=== PATIENT | male | born 1985 | race African-American/Black ===

== ENCOUNTER 2016-09-26 18:15 | Observation (INO) | payer MEDICAID, OTHER ==
[~2016-09-26] VITALS: Ht 177.8 cm; Wt 130.0 kg
[2016-09-26] VITALS (8 sets, daily range): BP systolic 138–221; BP diastolic 67–122; PULSE 90–116; RESP 18–28; TEMP 98.3–98.8; O2SAT 96–99
[2016-09-26] MEDS ORDERED: CLON0.3T PO (18:49)
[2016-09-26] MEDS ORDERED: METO25TA3 PO (18:49)
[2016-09-26] MEDS ORDERED: LOSA25TA PO (18:49)
--- NOTE | 2016-09-26 19:13 | PD ---
HPI Chief Complaint: Chest Pain Time Seen by Provider: 19:04 Travel History International Travel<30 days: No Contact w/Intl Traveler<30days: No Traveled to known affect area: No History of Present Illness HPI 31-year-old male presents to the emergency department by private vehicle in the care of his grandmother for evaluation of one day of retrosternal chest pain that is worsened and precipitated by cough. Pain is nonradiating. Patient rates pain 8/10 in intensity. Patient has nasal and chest congestion and has had a cough productive of yellow sputum. Patient is visiting from out of state and arrived here yesterday. Patient has history of hypertension for which he is prescribed metoprolol, losartan, and clonidine. Patient states he also has anxiety and is prescribed Klonopin. Patient does not describe this pain as pleuritic. Patient's had no lower extremity pain or swelling. Patient has been out of [facility] for 2 days. Patient is unable to identify exacerbating or alleviating factors except for cough increasing or causing his pain. Patient's had no sweats nausea or vomiting. Patient also reportedly has history of an enlarged heart. Patient has not been here before. Patient does not have a local physician. Patient has taken no medications to address his pain. No acetaminophen and/or ibuprofen use. Patient did take one aspirin earlier in the day but not for pain relief. [facility] Past Medical History Narrative Medical Hypertension cardiomyopathy anxiety bilateral knee and shoulder surgery alcohol use tobacco use; nursing notes reviewed Cardiomyopathy: Yes Cardiovascular Problems: Yes Hypertension: Yes ?: Not Past Surgical History Joint Replacement: Yes (BILATERAL KNEES, RIGHT SHOULDER) Social History Alcohol Use: Yes Tobacco Use: Yes Substance Use: No Allergies-Medications (Allergen,Severity, Reaction): Coded Allergies: No Known Allergies (Unverified , 09/26/16) Reported Meds & Prescriptions Reported Meds & Active Scripts Active Reported Losartan (Losartan Potassium) 25 Mg Tab 25 Mg PO DAILY Clonidine (Clonidine HCl) 0.3 Mg Tab 0.3 Mg PO BID Metoprolol Tartrate 25 Mg Tab 25 Mg PO BID Narrative Medication Klonopin; occasional low dose aspirin Review of Systems Except as stated in HPI: all other systems reviewed are Neg General / Constitutional: No: Fever, Chills HENT: Positive: Congestion Cardiovascular: Positive: Chest Pain or Discomfort, Tachycardia, No: Diaphoresis, Syncope, Edema Respiratory: Positive: Cough, Shortness of Breath, Wheezing, No: Hemoptysis, Pleuritic Pain Gastrointestinal: No: Nausea, Vomiting, Abdominal Pain Genitourinary: No: Dysuria, Flank Pain Musculoskeletal: No: Myalgias, Arthralgias, Edema Skin: No Rash Neurologic: No: Weakness Psychiatric: Positive: Anxiety Hematologic/Lymphatic: No: Lymph Node Enlargement Physical Exam Narrative GENERAL: Well-developed well-nourished obese male appears anxious hypertensive and no respiratory distress SKIN: Warm and dry. HEAD: Atraumatic. Normocephalic. EYES: Pupils equal and round. No scleral icterus. No injection or drainage. ENT: No nasal bleeding or discharge. Mucous membranes pink and moist. NECK: Trachea midline. No JVD. CARDIOVASCULAR: Regular rate and rhythm. RESPIRATORY: No accessory muscle use. Clear to auscultation. Breath sounds equal bilaterally. GASTROINTESTINAL: Abdomen soft, non-tender, nondistended. Hepatic and splenic margins not palpable. MUSCULOSKELETAL: Extremities without clubbing, cyanosis, or edema. No obvious deformities. NEUROLOGICAL: Awake and alert. No obvious cranial nerve deficits. Motor grossly within normal limits. Five out of 5 muscle strength in the arms and legs. Normal speech. PSYCHIATRIC: Appropriate mood and affect; insight and judgment normal. Data Data Last Documented VS Vital Signs Date Time Temp Pulse Resp B/P Pulse Ox O2 Delivery O2 Flow Rate FiO2 09/26/16 22:04 98.3 102 18 140/68 96 09/26/16 20:57 Nasal Cannula 2 Orders Electrocardiogram (09/26/16 19:04) B-Type Natriuretic Peptide (09/26/16 19:04) Ckmb (Isoenzyme) Profile (09/26/16 19:04) Complete Blood Count With Diff (09/26/16 19:04) Comprehensive Metabolic Panel (09/26/16 19:04) Magnesium (Mg) (09/26/16 19:04) Prothrombin Time / Inr (Pt) (09/26/16 19:04) Act Partial Throm Time (Ptt) (09/26/16 19:04) Troponin I (09/26/16 19:04) Chest, Single Ap (09/26/16 19:04) Ecg Monitoring (09/26/16 19:04) Bilateral Bp Monitoring (09/26/16 19:04) Iv Access Insert/Monitor (09/26/16 19:04) Oximetry (09/26/16 19:04) Oxygen Administration (09/26/16 19:04) Aspirin Chew (Aspirin Chew) (09/26/16 19:15) Sodium Chloride 0.9% Flush (Ns Flush) (09/26/16 19:15) Nitroglycerin Sl (Nitrostat Sl) (09/26/16 19:15) Sodium Chlor 0.9% 1000 Ml Inj (Ns 1000 M (09/26/16 19:15) CKMB (09/26/16 19:20) CKMB% (09/26/16 19:20) Ketorolac Inj (Toradol Inj) (09/26/16 20:15) Morphine Inj (Morphine Inj) (09/26/16 20:15) Ondansetron Inj (Zofran Inj) (09/26/16 20:15) Urinalysis - C+S If Indicated (09/26/16 20:02) Influenzae A/B Antigen (09/26/16 20:11) Nitroglycerin 2% Oint (Nitroglycerin 2% (09/26/16 20:15) Clonazepam (Klonopin) (09/26/16 20:15) Clonidine (Catapres) (09/26/16 20:45) Ceftriaxone Inj (Rocephin Inj) (09/26/16 20:45) Lactic Acid Sepsis Protocol (09/26/16 20:37) Blood Culture (09/26/16 20:37) Acetaminophen (Tylenol) (09/26/16 20:45) Electrocardiogram (09/26/16 18:32) Azithromycin Inj (Zithromax Inj) (09/26/16 23:30) Ceftriaxone Inj (Rocephin Inj) (09/27/16 23:00) Azithromycin Inj (Zithromax Inj) (09/27/16 23:00) Albuterol-Ipratropium Neb (Duoneb Neb) (09/26/16 23:45) Guaifenesin Er (Mucinex Er) (09/27/16 09:00) Budeson-Formot 160-4.5 Mg Inh (Symbicort (09/27/16 09:00) Place In Observation (09/26/16 ) Vital Signs (Adult) Q4H (09/26/16 23:31) Activity Oob Ad Anila (09/26/16 23:31) Instrumentation Technologist / Telemetry .CONTINUOUS (09/26/16 23:31) Intake + Output MARTIN.QSHIFT (09/26/16 23:31) Diet Regular Basic (09/27/16 Breakfast) Sodium Chlor 0.9% 1000 Ml Inj (Ns 1000 M (09/26/16 23:31) Sodium Chloride 0.9% Flush (Ns Flush) (09/26/16 23:45) Sodium Chloride 0.9% Flush (Ns Flush) (09/27/16 09:00) Ondansetron Inj (Zofran Inj) (09/26/16 23:45) Bisacodyl Supp (Dulcolax Supp) (09/26/16 23:45) Comprehensive Metabolic Panel (09/27/16 06:00) Complete Blood Count With Diff (09/27/16 06:00) Troponin I (09/27/16 00:00) Troponin I (09/27/16 06:00) Scd Bilateral/Knee High MARTIN.BID (09/26/16 23:31) Jake Bilateral/Knee High MARTIN.QSHIFT (09/26/16 23:31) Acetaminophen (Tylenol) (09/26/16 23:45) Acetamin-Hydrocod 325-5 Mg ([place] 5-325 (09/26/16 23:45) Morphine Inj (Morphine Inj) (09/26/16 23:45) Clonidine (Catapres) (09/27/16 09:00) Losartan (Cozaar) (09/27/16 09:00) Metoprolol Tartrate (Lopressor) (09/27/16 09:00) Creatine Kinase (Cpk) (09/27/16 00:00) Creatine Kinase (Cpk) (09/27/16 06:00) Drug Screen, Random Urine (09/26/16 23:37) Admit Order (Ed Use Only) (09/26/16 ) ^ Saline Lock (09/26/16 23:41) Resp Oxygen Aryan C Titrat 1-4 L (09/26/16 ) ^ Notify Dr: Other (09/26/16 23:41) Sodium Chloride 0.9% Flush (Ns Flush) (09/27/16 09:00) Sodium Chloride 0.9% Flush (Ns Flush) (09/26/16 23:45) Labs Laboratory Tests Test 09/26/16 09/26/16 09/26/16 19:20 20:20 20:30 White Blood Count 12.4 TH/MM3 Red Blood Count 4.94 MIL/MM3 Hemoglobin 15.2 GM/DL Hematocrit 44.4 % Mean Corpuscular Volume 90.0 FL Mean Corpuscular Hemoglobin 30.8 PG Mean Corpuscular Hemoglobin 34.2 % Concent Red Cell Distribution Width 13.1 % Platelet Count 120 TH/MM3 Mean Platelet Volume 9.6 FL Neutrophils (%) (Auto) 73.6 % Lymphocytes (%) (Auto) 17.0 % Monocytes (%) (Auto) 7.5 % Eosinophils (%) (Auto) 0.8 % Basophils (%) (Auto) 1.1 % Neutrophils # (Auto) 9.2 TH/MM3 Lymphocytes # (Auto) 2.1 TH/MM3 Monocytes # (Auto) 0.9 TH/MM3 Eosinophils # (Auto) 0.1 TH/MM3 Basophils # (Auto) 0.1 TH/MM3 CBC Comment DIFF FINAL Differential Comment Prothrombin Time 10.0 SEC Prothromb Time International 0.9 RATIO Ratio Activated Partial 28.2 SEC Thromboplast Time Sodium Level 139 MEQ/L Potassium Level 3.6 MEQ/L Chloride Level 103 MEQ/L Carbon Dioxide Level 28.2 MEQ/L Anion Gap 8 MEQ/L Blood Urea Nitrogen 8 MG/DL Creatinine 1.20 MG/DL Estimat Glomerular Filtration 86 ML/MIN Rate Random Glucose 84 MG/DL Calcium Level 8.9 MG/DL Magnesium Level 2.1 MG/DL Total Bilirubin 0.8 MG/DL Aspartate Amino Transf 26 U/L (AST/SGOT) Alanine Aminotransferase 47 U/L (ALT/SGPT) Alkaline Phosphatase 108 U/L Total Creatine Kinase 646 U/L Creatine Kinase MB 3.5 NG/ML Creatine Kinase MB % 0.5 % Troponin I 0.02 NG/ML B-Type Natriuretic Peptide 503 PG/ML Total Protein 7.9 GM/DL Albumin 3.9 GM/DL Urine Color YELLOW Urine Turbidity CLEAR Urine pH 6.5 Urine Specific [place] 1.012 Urine Protein 30 mg/dL Urine Glucose (UA) NEG mg/dL Urine Ketones NEG mg/dL Urine Occult Blood TRACE Urine Nitrite NEG Urine Bilirubin NEG Urine Leukocyte Esterase NEG Urine RBC 0-3 /hpf Urine WBC 0-2 /hpf Urine Squamous Epithelial 0-5 /hpf Cells Urine Bacteria NONE /hpf Microscopic Urinalysis Comment CULT NOT INDICATED Lactic Acid Level 1.1 mmol/L MDM Medical Decision Making Medical Screen Exam Complete: Yes Emergency Medical Condition: Yes Medical Record Reviewed: Yes Interpretation(s) EKG: Sinus tachycardia rate 110, LVH, lateral and anteroseptal ST-T changes consistent with LVH also to consider ischemia, no acute ST elevation or injury pattern change noted; no comparison study CBC & BMP Diagram 09/26/16 19:20 CK: 646, elevated; MB%:0.5% not elevate troponin I: less than 0.02, not elevated BNP: 503, elevated Lactic acid: 1.1, not elevated UA: trace occult blood no RBC's, positive for protein coags: grossly wnl Differential Diagnosis Chest pain, ACS, SC, atypical chest pain, pneumonia, CHF, PE, uncontrolled hypertension Narrative Course 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 Patient now relates that not only does take Klonopin for anxiety disorder She has a seizure disorder and has been out of his medicine for 2 days. Patient also reports he is recently moved to the area and will not be returning to [place] and is out of all of his medications, apparently including his blood pressure medications. @ 8:40 PM T: 101.5 F; lactic acid, blood cultures ordered; patient administered rocephin 1 gm ivpb; Influenza a/b ag specimen collected as well; cxr no lobar infiltrate noted At 10:08 PM patient clinically improved temperature 98.3F; heart rate 102 sinus rhythm; room air O2 saturation 96%; blood pressure 140/68; patient feels clinically much improved; influenza A/B antigen results pending chest pain, uncontrolled htn, mild chf, elevated ck possible mild rhabdomyolysis , early benzodiazepine withdrawal, medication noncompliance, and febrile illness ; patient also meets sirs criteria possible sepsis criteria --due to bronchitis At 11:10 AM patient is clinically markedly improved lab values have been resulted and discussed with patient. Patient identified to have elevated CK and reports at this time did have recent seizure which may explain elevation of CK consistent with tissue breakdown. Patient continues to have pain only with cough at this time. Patient most likely with noncardiac related and inflammatory/infectious related chest pain. AMA: The risks of leaving against medical advice without further evaluation treatment were discussed with the patient. These risks include cardiac dysfunction, cardiac dysrhythmia, possible heart attack, possible stroke or . The patient indicated understanding of these risks and appeared to have the capacity to make this decision. In view of patient being out of Klonopin was seizure disorder patient will be given and prescription for a few tablets to cover him until he can establish with a primary care provider; patient again is encouraged to return immediately to the emergency department for any concerns Sepsis Criteria SIRS Criteria (2 or more): Heart rate over 90, RR > 20 or PaCO2 < 32, WBC > 77950, < 4000 or > 10% bands Physician Communication Physician Communication discussed with Dr Voss --will admit Diagnosis Primary Impression: Chest pain Additional Impressions: Poorly-controlled hypertension Bronchitis H/O tonic-clonic seizures H/O anxiety disorder Admitting Information Admitting Physician Requests: Observation Referrals: Primary Care Physician call for appointment Additional Instructions: AMA Med/Other Pt SpecificInfo: Prescription(s) given Scripts Clonazepam (Klonopin)1 Mg Tab1 Mg PO BID #7 TAB Ref 0 Prov:Lenore Burt MD 09/26/16 Disposition: 07 AGAINST MEDICAL ADVICE Condition: Stable Lenore Burt MD Sep 26, 2016 19:13
[2016-09-26] MEDS ORDERED: SODIUM CHLORIDE 0.9% FLUSH 5 ML FLUSH IVF PRN ×2 (19:15→23:45)
[2016-09-26] MEDS ORDERED: SODIUM CHLOR 0.9% 1000 ML INJ 1,000 ML IV SCH ×2 (19:15→23:31)
[2016-09-26] MEDS ORDERED: ASPIRIN 81 MG CHEW TAB PO ONE (19:15)
--- NOTE | 2016-09-26 19:24 | RADHPO ---
EXAM DATE/TIME: 09/26/2016 19:10 [facility] COMPARISON: No previous studies available for comparison. INDICATIONS : Chest pains. MEDICAL HISTORY : None. SURGICAL HISTORY : None. ENCOUNTER: Initial ACUITY: 3 days PAIN SCORE: 8/10 LOCATION: Bilateral chest FINDINGS: A single view of the chest demonstrates the lungs to be symmetrically aerated without evidence of mas s, infiltrate or effusion. The cardiomediastinal contours are unremarkable. Osseous structures are intact. CONCLUSION: No acute disease. Chacorta Mendieta MD on September 26, 2016 at 19:22 Board Certified Radiologist. This report was verified electronically.
[2016-09-26 19:30] LABS: AUTOMATED NEUTROPHIL # 9.2 TH/MM3 (1.8-7.7); BASOPHIL # 0.1 TH/MM3 (0-0.2); BASOPHIL % 1.1 % (0.0-2.0); EOSINOPHIL # 0.1 TH/MM3 (0-0.4); EOSINOPHIL % 0.8 % (0.0-4.0); HEMATOCRIT 44.4 % (39.0-51.0); HEMO FLAGS DIFF FINAL; LYMPHOCYTE # 2.1 TH/MM3 (1.0-4.8); MEAN CORPUSCULAR HEMOGLOBIN 30.8 PG (27.0-34.0); MEAN CORPUSCULAR HGB CONC 34.2 % (32.0-36.0); MONO % 7.5 % (0.0-8.0); NEUT % 73.6 % (16.0-70.0); PLATELET COUNT 120 TH/MM3 (150-450); RED BLOOD COUNT 4.94 MIL/MM3 (4.50-5.90); RED CELL DISTRIBUTION WIDTH 13.1 % (11.6-17.2); WHITE BLOOD COUNT 12.4 TH/MM3 (4.0-11.0)
[2016-09-26 19:36] LABS: CHLORIDE 103 MEQ/L (98-107); POTASSIUM 3.6 MEQ/L (3.5-5.1); SODIUM (NA) 139 MEQ/L (136-145)
[2016-09-26 19:39] LABS: ANION GAP 8 MEQ/L (5-15); BICARBONATE 28.2 MEQ/L (21.0-32.0)
[2016-09-26 19:40] LABS: BLOOD UREA NITROGEN 8 MG/DL (7-18); MAGNESIUM 2.1 MG/DL (1.5-2.5)
[2016-09-26 19:41] LABS: APTT (PATIENT) 28.2 SEC (24.3-30.1); INTERNATIONAL NORMALIZED RATIO 0.9 RATIO
[2016-09-26] MEDS: NITROGLYCERIN 0.4 MG SL 25 TABS/BTL SL SCH ×3 (19:41→19:57)
[2016-09-26 19:42] LABS: ALT (GPT) 47 U/L (12-78)
[2016-09-26 19:43] LABS: AST (GOT) 26 U/L (15-37); GLOMERULAR FILTRATION RATE 86 ML/MIN (>89)
[2016-09-26 19:44] LABS: TOTAL BILIRUBIN ADULT 0.8 MG/DL (0.2-1.0)
[2016-09-26 19:45] LABS: ALKALINE PHOSPHATASE 108 U/L (45-117); CREATINE KINASE 646 U/L (39-308)
[2016-09-26 20:00] LABS: CKMB 3.5 NG/ML (0.5-3.6)
[2016-09-26] MEDS ORDERED: KETOROLAC TROMETHAMINE 30 MG/ML (IVP) VIAL IV PUSH ONE (20:15)
[2016-09-26] MEDS ORDERED: clonazePAM 1 MG TAB PO ONE (20:15)
[2016-09-26] MEDS ORDERED: NITROGLYCERIN 2% OINT 1 GM PACKET TOPICAL ONE (20:15)
[2016-09-26] MEDS ORDERED: ONDANSETRON HCL 4 MG/2 ML VIAL IV PUSH ONE (20:15)
[2016-09-26] MEDS ORDERED: MORPHINE SULFATE 4 MG/ML INJ IV PUSH ONE (20:15)
[2016-09-26 20:26] LABS: BLOOD, URINE TRACE (NEG); GLUCOSE,URINE NEG (NEG); KETONE, URINE NEG (NEG); NITRITE,URINE NEG (NEG); PH, URINE 6.5 (5.0-8.5)
[2016-09-26 20:30] LABS: COMMENT (UR) CULT NOT INDICATED; CULTURE IF INDICATED CULT NOT INDICATED; RBC, URINE 0-3 /hpf (0-3); SQUAMOUS EPITHELIAL CELL URINE 0-5 /hpf (0-5); URINE COLOR YELLOW (YELLW/STRAW); WBC, URINE 0-2 /hpf (0-5)
[2016-09-26] MEDS ORDERED: cloNIDine HCL 0.1 MG TAB PO ONE (20:45)
[2016-09-26] MEDS ORDERED: cefTRIAXone INJ 1,000 MG in SODIUM CHLORIDE 0.9% INJ 100 ML IV ONE (20:45)
[2016-09-26] MEDS ORDERED: ACETAMINOPHEN 500 MG CPLT PO ONE (20:45)
--- NOTE | 2016-09-26 22:30 | EKG ---
Date Performed: 09/26/2016 Time Performed: 19:22:12 PTAGE: 31 years EKG: Sinus tachycardia Leftward axis LVH with secondary repolarization abnormality Ant/septal an d lateral ST-T changes may be due to hypertrophy and/or ischemia Abnormal ECG PREVIOUS TRACING : 09/26/2016 18.32 No significant change from previous tracing noted. DOCTOR: Maikel Wilhelm Interpretating Date/Time 09/26/2016 22:30:10
--- NOTE | 2016-09-26 22:32 | EKG ---
Date Performed: 09/26/2016 Time Performed: 18:32:24 PTAGE: 31 years EKG: Sinus tachycardia Possible left anterior fascicular block LVH with secondary repolarization abnormality Ant/septal and lateral ST-T changes may be due to hypertrophy and/or ischemia Abnormal E CG NO PREVIOUS TRACING DOCTOR: Maikel Wilhelm Interpretating Date/Time 09/26/2016 22:31:00
[2016-09-26] MEDS ORDERED: AZITHROMYCIN INJ 500 MG in SODIUM CHLOR 0.9% 250 ML INJ 250 ML IV ONE (23:30)
[2016-09-26] MEDS ORDERED: MORPHINE SULFATE 4 MG/ML INJ IV PRN (23:45)
[2016-09-26] MEDS ORDERED: SODIUM CHLORIDE 0.9% FLUSH 5 ML FLUSH FLUSH PRN (23:45)
[2016-09-26] MEDS ORDERED: ACETAMINOPHEN 325 MG TAB PO PRN (23:45)
[2016-09-26] MEDS ORDERED: BISACODYL 10 MG SUPP PR PRN (23:45)
[2016-09-26] MEDS ORDERED: ACETAMINOPHEN/HYDROcodone 325 MG/5 MG TAB PO PRN (23:45)
[2016-09-26] MEDS ORDERED: RESP: ALBUTEROL 2.5 MG/IPRATROPIUM 0.5 MG NEB (PRN) NEB (23:45)
[2016-09-26] MEDS ORDERED: ONDANSETRON HCL 4 MG/2 ML VIAL IVP PRN (23:45)
[2016-09-26] MEDS ORDERED: CLON1 PO (23:56)
[2016-09-27 00:02] LABS: AMPHETAMINE, URINE NEG (NEG); BARBITURATES, URINE NEG (NEG); COCAINE, URINE NEG (NEG)
[2016-09-27 00:04] VITALS: BP 137/71; TEMP 98
[2016-09-27] MEDS ORDERED: guaiFENesin E.R. 600 MG TAB PO SCH (09:00)
[2016-09-27] MEDS ORDERED: LOSARTAN 25 MG TAB PO SCH (09:00)
[2016-09-27] MEDS ORDERED: cloNIDine HCL 0.3 MG TAB PO SCH (09:00)
[2016-09-27] MEDS ORDERED: SODIUM CHLORIDE 0.9% FLUSH 5 ML FLUSH IVF SCH (09:00)
[2016-09-27] MEDS ORDERED: METOPROLOL TARTRATE 25 MG TAB PO SCH (09:00)
[2016-09-27] MEDS ORDERED: BUDESONIDE-FORMOTEROL 160/4.5 MCG INHALER INH SCH (09:00)
[2016-09-27] MEDS ORDERED: SODIUM CHLORIDE 0.9% FLUSH 5 ML FLUSH FLUSH SCH (09:00)
[2016-09-27] MEDS ORDERED: AZITHROMYCIN INJ 500 MG in SODIUM CHLOR 0.9% 250 ML INJ 250 ML IV SCH (23:00)
[2016-09-27] MEDS ORDERED: cefTRIAXone INJ 1,000 MG in SODIUM CHLORIDE 0.9% INJ 100 ML IV SCH (23:00)
== END 2016-09-27 00:30 | disposition left against medical advice (07) ==
LOC: PHED 18:15 → UNDOADMOB 23:47 → PHEDA 23:47 → UNDODISOB 09-27 00:30
PROVIDERS: ADMIT Hospitalist; ATTEND Hospitalist
DX: R07.89 Other chest pain (principal); I10 Essential (primary) hypertension; J40 Bronchitis, not specified as acute or chronic; F41.9 Anxiety disorder, unspecified; R94.31 Abnormal electrocardiogram [ECG] [EKG]; G40.909 Epilepsy, unspecified, not intractable, without status epilepticus; Z72.0 Tobacco use
CPT/HCPCS: 71010; 80053; 80307; 81001; 82550; 82552; 83605; 83735; 83880; 84484; 85025; 85610; 85730; 87040; 87804; 93005; 96374; 96375; 99285; G0378; J0696; J1885; J2270; J2405; J7030

== ENCOUNTER 2016-10-05 18:58 | Inpatient (IN) | payer MEDICAID ==
[~2016-10-05] VITALS: Ht 177.8 cm; Wt 119.0 kg
[~2016-10-05 18:58] MED LIST: CLON0.3T PO; CLON1 PO; LOSA25TA PO; METO25TA3 PO
[2016-10-05 19:01] VITALS: BP 166/85; PULSE 94; RESP 16; TEMP 98.5; O2SAT 98
[2016-10-05] MEDS ORDERED: SODIUM CHLOR 0.9% 1000 ML INJ 1,000 ML IV ONE (19:08)
--- NOTE | 2016-10-05 19:10 | PD ---
HPI Chief Complaint: Seizure Time Seen by Provider: 19:10 Travel History International Travel<30 days: No Contact w/Intl Traveler<30days: No Traveled to known affect area: No History of Present Illness HPI 31-year-old male with history of hypertension, anxiety, seizure disorder is brought to the emergency department by EMS for evaluation of seizures. Per EMS report the patient was at home with family when he had what they described as a grand mal seizure lasting approximately 60 seconds. States that when they began to transport the patient he experienced 2 more seizures and received a total of Ativan 4 mg IV with resolution. He was noted to be postictal and incontinent of urine, no evidence of tongue biting. Patient is complaining of headache and dizziness. States that he did fall this afternoon after tripping on his bag in his bedroom. States that he hit the back of his head, unsure of loss of consciousness. States he does have a history of seizure disorder but is not taking anything for his seizures at this time. States that he thinks he is supposed to be on Dilantin but missed his appointment with his PCP and has been off of it for at least a week. He also takes Klonopin for anxiety and has been off of this for 5 days because he missed his appointment. He is here visiting from [place] but states he is trying to move back to the area. He denies any chest pain, shortness of breath, numbness or tingling, weakness, vision loss, fever, chills. Denies alcohol or drug use. No other complaints. PFSH Past Medical History Cardiomyopathy: Yes Cardiovascular Problems: Yes Hypertension: Yes Seizures: Yes Past Surgical History Joint Replacement: Yes (BILATERAL KNEES, RIGHT SHOULDER) Social History Alcohol Use: Yes Tobacco Use: Yes (2 cigs/day) Substance Use: No Allergies-Medications (Allergen,Severity, Reaction): Coded Allergies: No Known Allergies (Unverified , 09/26/16) Reported Meds & Prescriptions Reported Meds & Active Scripts Active Reported Dilantin (Phenytoin Extended) 100 Mg Cap Unknown Dose PO Amlodipine (Amlodipine Besylate) 10 Mg Tab 10 Mg PO DAILY Klonopin (Clonazepam) 2 Mg Tab 2 Mg PO BID Losartan (Losartan Potassium) 25 Mg Tab 25 Mg PO DAILY Clonidine (Clonidine HCl) 0.3 Mg Tab 0.3 Mg PO BID Metoprolol Tartrate 25 Mg Tab 25 Mg PO BID Review of Systems Except as stated in HPI: all other systems reviewed are Neg Physical Exam Narrative GENERAL: Well-nourished and well-developed male patient in no acute distress. SKIN: Warm and dry. HEAD: Normocephalic and atraumatic. EYES: No injection, drainage, or hyphema noted. PERRLA. EOMI. ENT: No nasal drainage noted. Oropharynx is clear. NECK: Supple and the trachea is midline. CARDIOVASCULAR: Regular rate and rhythm. RESPIRATORY: Breath sounds are equal bilaterally with no accessory muscle use, wheezing, rhonchi, or crackles. GASTROINTESTINAL: Abdomen is soft, non-tender, and nondistended. MUSCULOSKELETAL: No obvious deformities, swelling, cyanosis, or ecchymosis is present throughout the upper and lower extremities. Patient has full range of motion without any signs of neurovascular compromise. Strength 5/5 upper and lower extremities equal bilaterally. NEUROLOGICAL: Awake, alert, and oriented. Normal speech and gait. Cranial nerves are grossly intact. Data Data Last Documented VS Vital Signs Date Time Temp Pulse Resp B/P Pulse Ox O2 Delivery O2 Flow Rate FiO2 10/05/16 19:01 98.5 94 16 166/85 98 10/05/16 19:01 Room Air Orders Complete Blood Count With Diff (10/05/16 19:08) Alcohol (Ethanol) (10/05/16 19:08) Phenytoin (Dilantin) (10/05/16 19:08) Drug Screen, Random Urine (10/05/16 19:08) Electrocardiogram (10/05/16 ) Ct Brain W/O Iv Contrast(Rout) (10/05/16 ) Blood Glucose (10/05/16 19:08) Ecg Monitoring (10/05/16 19:08) Iv Access Insert/Monitor (10/05/16 19:08) Oximetry (10/05/16 19:08) Comprehensive Metabolic Panel (10/05/16 19:08) Sodium Chlor 0.9% 1000 Ml Inj (Ns 1000 M (10/05/16 19:08) Sodium Chloride 0.9% Flush (Ns Flush) (10/05/16 19:15) Admit Order (Ed Use Only) (10/05/16 22:08) Labs Laboratory Tests Test 10/05/16 10/05/16 10/05/16 19:10 19:15 22:04 White Blood Count 10.9 TH/MM3 Red Blood Count 4.86 MIL/MM3 Hemoglobin 15.2 GM/DL Hematocrit 43.1 % Mean Corpuscular Volume 88.8 FL Mean Corpuscular Hemoglobin 31.2 PG Mean Corpuscular Hemoglobin 35.2 % Concent Red Cell Distribution Width 13.7 % Platelet Count 232 TH/MM3 Mean Platelet Volume 9.7 FL Neutrophils (%) (Auto) 69.9 % Lymphocytes (%) (Auto) 22.7 % Monocytes (%) (Auto) 6.1 % Eosinophils (%) (Auto) 0.3 % Basophils (%) (Auto) 1.0 % Neutrophils # (Auto) 7.6 TH/MM3 Lymphocytes # (Auto) 2.5 TH/MM3 Monocytes # (Auto) 0.7 TH/MM3 Eosinophils # (Auto) 0.0 TH/MM3 Basophils # (Auto) 0.1 TH/MM3 CBC Comment DIFF FINAL Differential Comment Urine Opiates Screen NEG Urine Barbiturates Screen POS Urine Amphetamines Screen NEG Urine Benzodiazepines Screen POS Urine Cocaine Screen NEG Urine Cannabinoids Screen POS Sodium Level 140 MEQ/L Potassium Level 3.4 MEQ/L Chloride Level 106 MEQ/L Carbon Dioxide Level 23.2 MEQ/L Anion Gap 11 MEQ/L Blood Urea Nitrogen 8 MG/DL Creatinine 1.52 MG/DL Estimat Glomerular Filtration 65 ML/MIN Rate Random Glucose 81 MG/DL Calcium Level 8.4 MG/DL Total Bilirubin 0.5 MG/DL Aspartate Amino Transf 15 U/L (AST/SGOT) Alanine Aminotransferase 30 U/L (ALT/SGPT) Alkaline Phosphatase 73 U/L Total Protein 7.2 GM/DL Albumin 3.7 GM/DL Phenytoin (Dilantin) Level LESS THAN 0.4 MCG/ML Ethyl Alcohol Level LESS THAN 3 MG/DL [facility] Medical Decision Making Medical Screen Exam Complete: Yes Emergency Medical Condition: Yes Differential Diagnosis Seizure disorder versus medication noncompliance versus benzodiazepine withdrawal versus intracranial hemorrhage Narrative Course 31-year-old male is brought to the emergency department by EMS for evaluation of 3 seizures today. Patient is afebrile, vital signs are stable. Physical examination reveals that the patient is postictal but is awake and oriented. No focal neurologic deficits. IV access was obtained, labs were drawn and sent. EKG shows sinus rhythm with elevations or depressions. Head CT been ordered and is pending. Head CT is negative for any acute abnormalities. CBC is unremarkable. Urine tox is positive for barbiturates, benzos, cannabinoids. CMP shows mild renal insufficiency with a creatinine of 1.52, GFR 65. This consistent with previous lab values. Patient has been given IV fluids. Dilantin level is less than 0.4 Patient is given a loading dose of fosphenytoin. Patient has remained stable and without complaint while here in the emergency department. Because the patient had 3 seizures today he will be kept in observation. I discussed the case with my attending physician Dr. Mabry who is aware of the patients history, physical examination findings, and treatment plan. Diagnosis Primary Impression: Seizure disorder, status epilepticus, convulsive Admitting Information Admitting Physician Requests: Observation Marcela Villeda Oct 05, 2016 19:10
[2016-10-05] MEDS ORDERED: SODIUM CHLORIDE 0.9% FLUSH 5 ML FLUSH IVF PRN (19:15)
[2016-10-05 19:39] LABS: AUTOMATED NEUTROPHIL # 7.6 TH/MM3 (1.8-7.7); BASOPHIL # 0.1 TH/MM3 (0-0.2); EOSINOPHIL % 0.3 % (0.0-4.0); HEMATOCRIT 43.1 % (39.0-51.0); HEMO FLAGS DIFF FINAL; LYMPH % 22.7 % (9.0-44.0); LYMPHOCYTE # 2.5 TH/MM3 (1.0-4.8); MEAN CELL VOLUME 88.8 FL (80.0-100.0); MEAN CORPUSCULAR HEMOGLOBIN 31.2 PG (27.0-34.0); MEAN CORPUSCULAR HGB CONC 35.2 % (32.0-36.0); MONO % 6.1 % (0.0-8.0); NEUT % 69.9 % (16.0-70.0); PLATELET COUNT 232 TH/MM3 (150-450); RED BLOOD COUNT 4.86 MIL/MM3 (4.50-5.90); RED CELL DISTRIBUTION WIDTH 13.7 % (11.6-17.2); WHITE BLOOD COUNT 10.9 TH/MM3 (4.0-11.0)
[2016-10-05 19:48] LABS: AMPHETAMINE, URINE NEG (NEG); BARBITURATES, URINE POS (NEG); COCAINE, URINE NEG (NEG)
--- NOTE | 2016-10-05 19:48 | RADRPT ---
EXAM DATE/TIME: 10/05/2016 19:25 [facility] COMPARISON: No previous studies available for comparison. INDICATIONS : Seizures. RADIATION DOSE: 47.49 CTDIvol (mGy) MEDICAL HISTORY : Cardiovascular disease. Hypertension. Seizures. SURGICAL HISTORY : None. ENCOUNTER: Initial ACUITY: 1 day PAIN SCALE: 5/10 LOCATION: cranial TECHNIQUE: Multiple contiguous axial images were obtained of the head. Using automated exposure control and adj ustment of the mA and/or kV according to patient size, radiation dose was kept as low as reasonably a chievable to obtain optimal diagnostic quality images. FINDINGS: CEREBRUM: The ventricles are normal for age. No evidence of midline shift, mass lesion, hemorrhage or acute in farction. No extra-axial fluid collections are seen. POSTERIOR FOSSA: The cerebellum and brainstem are intact. The 4th ventricle is midline. The cerebellopontine angle i s unremarkable. EXTRACRANIAL: The visualized portion of the orbits is intact. SKULL: The calvaria is intact. No evidence of skull fracture. CONCLUSION: Negative noncontrast head CT. Rebel Dawn MD on October 05, 2016 at 19:46 Board Certified Radiologist. This report was verified electronically.
[2016-10-05] MEDS ORDERED: KLON2TAB PO (20:06)
[2016-10-05] MEDS ORDERED: AMLO10TA2 PO (20:08)
[2016-10-05] MEDS ORDERED: DILA100C PO (20:10)
[2016-10-05 21:30] VITALS: BP 136/77; PULSE 66; RESP 16; O2SAT 99
[2016-10-05 22:40] LABS: ANION GAP 11 MEQ/L (5-15)
[2016-10-05 22:43] LABS: ALKALINE PHOSPHATASE 73 U/L (45-117); ALT (GPT) 30 U/L (12-78); AST (GOT) 15 U/L (15-37); BICARBONATE 23.2 MEQ/L (21.0-32.0); BLOOD UREA NITROGEN 8 MG/DL (7-18); CHLORIDE 106 MEQ/L (98-107); GLOMERULAR FILTRATION RATE 65 ML/MIN (>89); POTASSIUM 3.4 MEQ/L (3.5-5.1); SODIUM (NA) 140 MEQ/L (136-145); TOTAL BILIRUBIN ADULT 0.5 MG/DL (0.2-1.0)
[2016-10-05] MEDS ORDERED: SODIUM CHLOR 0.9% 1000 ML INJ 1,000 ML IV SCH (23:25)
[2016-10-05 23:30] VITALS: BP 134/68; PULSE 77; RESP 16; O2SAT 99
[2016-10-05] MEDS ORDERED: FOSPHENYTOIN INJ 1,000 MGPE in SODIUM CHLORIDE 0.9% INJ 50 ML IV ONE (23:30)
[2016-10-05] MEDS ORDERED: NALOXONE HCL 0.4 MG/ML AMP IV PRN (23:30)
[2016-10-05] MEDS ORDERED: SODIUM CHLORIDE 0.9% FLUSH 5 ML FLUSH FLUSH PRN (23:30)
--- NOTE | 2016-10-05 23:45 | PD ---
Physical Exam Date Seen by Provider: Oct 05, 2016 Time Seen by Provider: 22:00 Narrative I, Dr. Mabry, have reviewed the advance practice practitioner's documentation and am in agreement, met with the patient face to face, made the diagnosis, and the medical decision making was done by me. *My assessment and Findings: Patient seen and evaluated with PA, please see PA note for further details. Here with multiple seizures today, was initially postictal in the ER, but was awakened and conversant after time period of observation. Patient is noncompliant with his Dilantin dose. He also has not taken his Klonopin and about 5 days. Laboratory Tests Test 10/05/16 10/05/16 19:15 22:04 Urine Barbiturates Screen POS (NEG) Urine Benzodiazepines Screen POS (NEG) Urine Cannabinoids Screen POS (NEG) Potassium Level 3.4 MEQ/L (3.5-5.1) Creatinine 1.52 MG/DL (0.60-1.30) Estimat Glomerular Filtration 65 ML/MIN (>89) Rate Calcium Level 8.4 MG/DL (8.5-10.1) Phenytoin (Dilantin) Level LESS THAN 0.4 MCG/ML (10.0-20.0) Last [address] 10/05/16 0000 Signed Impressions: Service Date/Time: Wednesday, October 05, 2016 19:25 - CONCLUSION: Negative noncontrast head CT. Rebel Dawn MD Patient had been given 4 mg of Ativan by EMS on scene. At this point, Dilantin is low and Dilantin was also reloaded. Case is discussed with Dr. Bean for admission for further treatment. She would like the [facility]. Data Data Last Documented VS Vital Signs Date Time Temp Pulse Resp B/P Pulse Ox O2 Delivery O2 Flow Rate FiO2 10/05/16 19:01 98.5 94 16 166/85 98 10/05/16 19:01 Room Air Orders Complete Blood Count With Diff (10/05/16 19:08) Alcohol (Ethanol) (10/05/16 19:08) Phenytoin (Dilantin) (10/05/16 19:08) Drug Screen, Random Urine (10/05/16 19:08) Electrocardiogram (3/6/17 ) Ct Brain W/O Iv Contrast(Rout) (10/05/16 ) Blood Glucose (10/05/16 19:08) Ecg Monitoring (10/05/16 19:08) Iv Access Insert/Monitor (10/05/16 19:08) Oximetry (10/05/16 19:08) Comprehensive Metabolic Panel (10/05/16 19:08) Sodium Chlor 0.9% 1000 Ml Inj (Ns 1000 M (10/05/16 19:08) Sodium Chloride 0.9% Flush (Ns Flush) (10/05/16 19:15) Admit Order (Ed Use Only) (10/05/16 22:08) Labs Laboratory Tests Test 10/05/16 10/05/16 10/05/16 19:10 19:15 22:04 White Blood Count 10.9 TH/MM3 Red Blood Count 4.86 MIL/MM3 Hemoglobin 15.2 GM/DL Hematocrit 43.1 % Mean Corpuscular Volume 88.8 FL Mean Corpuscular Hemoglobin 31.2 PG Mean Corpuscular Hemoglobin 35.2 % Concent Red Cell Distribution Width 13.7 % Platelet Count 232 TH/MM3 Mean Platelet Volume 9.7 FL Neutrophils (%) (Auto) 69.9 % Lymphocytes (%) (Auto) 22.7 % Monocytes (%) (Auto) 6.1 % Eosinophils (%) (Auto) 0.3 % Basophils (%) (Auto) 1.0 % Neutrophils # (Auto) 7.6 TH/MM3 Lymphocytes # (Auto) 2.5 TH/MM3 Monocytes # (Auto) 0.7 TH/MM3 Eosinophils # (Auto) 0.0 TH/MM3 Basophils # (Auto) 0.1 TH/MM3 CBC Comment DIFF FINAL Differential Comment Urine Opiates Screen NEG Urine Barbiturates Screen POS Urine Amphetamines Screen NEG Urine Benzodiazepines Screen POS Urine Cocaine Screen NEG Urine Cannabinoids Screen POS Sodium Level 140 MEQ/L Potassium Level 3.4 MEQ/L Chloride Level 106 MEQ/L Carbon Dioxide Level 23.2 MEQ/L Anion Gap 11 MEQ/L Blood Urea Nitrogen 8 MG/DL Creatinine 1.52 MG/DL Estimat Glomerular Filtration 65 ML/MIN Rate Random Glucose 81 MG/DL Calcium Level 8.4 MG/DL Total Bilirubin 0.5 MG/DL Aspartate Amino Transf 15 U/L (AST/SGOT) Alanine Aminotransferase 30 U/L (ALT/SGPT) Alkaline Phosphatase 73 U/L Total Protein 7.2 GM/DL Albumin 3.7 GM/DL Phenytoin (Dilantin) Level LESS THAN 0.4 MCG/ML Ethyl Alcohol Level LESS THAN 3 MG/DL MDM Medical Record Reviewed: Yes Supervised Visit with RED: Yes Diagnosis Primary Impression: Seizure disorder, status epilepticus, convulsive Admitting Information Admitting Physician Requests: it Kana Mabry MD Oct 05, 2016 23:44
[2016-10-06] VITALS (21 sets, daily range): BP systolic 136–179; BP diastolic 84–104; PULSE 57–130; RESP 16–24; TEMP 97.9–99.3; O2SAT 96–100
--- NOTE | 2016-10-06 04:43 | HHI.HP ---
[facility] No Primary Care Physician Admission Diagnosis multiple seizures Diagnoses: (1) Seizure disorder, status epilepticus, convulsive (2) H/O tonic-clonic seizures (3) H/O anxiety disorder (4) Poorly-controlled hypertension (5) Acute renal insufficiency (6) Toothache Chief Complaint: Seizures Travel History International Travel<30 Days: No Contact w/Intl Traveler <30 Da: No Traveled to Known Affected Are: No History of Present Illness Mr. Santiago is a 31 year old male who is visiting his sister in the [place] area is from [place]. His past medical history of seizures, cardiomyopathy, and hypertension then presented to the emergency room on 10/05/2016 after experiencing a seizure that was witnessed by his grandmother followed by 2 more in front of EMS. The patient is seen in the emergency department. He is laying down on a stretcher with his sister at the bedside. He states that he was at home lying down when he got up, tripped on the bed, hit his head, and had a seizure. He states he felt the "aura" and could feel a sense of "blackness" come over him. He says he went into the garage and sat down. He is unable to provide a really great history of this which is likely secondary to postictal state. His sister provides a rest of the history. She states that her grandmother was over visiting with them. She said he was walking in the hallway and was covered in sweat so the grandmother had him lie down on the kitchen floor. It was then that he had a grand mal seizure. After it was over, he got up, ripped his shirt off, and started smoking a cigarette. Upon the arrival of EMS, the patient had 2 more witnessed seizures. The sister does not think that he fell and hit his head. Reports that he takes klonopin at home but ran out and has been unable to obtain. His prescribing physician in [place] said he could not call it into a [place] pharmacy. He is not on seizure medications at home. He states he is supposed to take Dilantin. He says he started having seizures in the past couple of years. He denies fevers, chills, and night sweats, but complains of toothache. He had a dentist appointment at [id number] here in [facility] today to take care of this. He denies any history of diabetes, breathing problems, liver or kidney problems , thyroid problems, cancer, or blood clots such as DVT, PE, or CVA. . Review of Systems Except as stated in HPI: all other systems reviewed are Neg Past Family Social History Past Medical History Hypertension Cardiomyopathy Seizures . Past Surgical History Knee surgery . Reported Medications Reported Meds & Active Scripts Active Reported Dilantin (Phenytoin Extended) 100 Mg Cap Unknown Dose PO Amlodipine (Amlodipine Besylate) 10 Mg Tab 10 Mg PO DAILY Klonopin (Clonazepam) 2 Mg Tab 2 Mg PO BID Losartan (Losartan Potassium) 25 Mg Tab 25 Mg PO DAILY Clonidine (Clonidine HCl) 0.3 Mg Tab 0.3 Mg PO BID Metoprolol Tartrate 25 Mg Tab 25 Mg PO BID Allergies: Coded Allergies: No Known Allergies (Unverified , 09/26/16) Active Ordered Medications Current Medications Sodium Chloride (NS 1000 ml Inj) 1,000 ml @ 1,000 mls/hr Q1H ONCE IV Last administered on 10/05/16 19:22; Start 10/05/16 at 19:08; Stop 10/05/16 at 20:07; Status DC IV Flush 2 ml 2 ml UNSCH PRN IVF FLUSH AFTER USING IV ACCESS Last administered on 10/05/16 19:22; Start 10/05/16 at 19:15; Stop 10/05/16 at 23:28; Status DC Fosphenytoin Sodium 1000 mgpe/ Sodium Chloride 70 ml @ 300 mls/hr ONCE ONCE IV Last administered on 10/05/16 23:44; Start 10/05/16 at 23:30; Stop 10/05/16 at 23:43; Status DC Sodium Chloride (NS 1000 ml Inj) 1,000 ml @ 100 mls/hr Q10H IV Last administered on 10/05/16 23:44; Start 10/05/16 at 23:25 IV Flush (NS Flush) 2 ml UNSCH PRN FLUSH FLUSH AFTER USING IV ACCESS; Start 10/05/16 at 23:30 IV Flush (NS Flush) 2 ml BID FLUSH ; Start 10/06/16 at 09:00 Naloxone HCl (Narcan Inj) 0.4 mg UNSCH PRN IV SEE LABEL COMMENTS; Start at 23:30 Lorazepam (Ativan Inj) 1 mg Q15M PRN IV PUSH seizures; Start 10/05/16 at 23:30 . Family History Diabetes on patient's father's side . Social History Smokes 2 cigarettes per day Alcohol: 6 pack per day - last drink day before yesterday - sister at bedside indicates this is daily intake Drugs: denies from [place], visiting sister here . Physical Exam Vital Signs Vital Signs Date Time Temp Pulse Resp B/P Pulse Ox O2 Delivery O2 Flow Rate FiO2 10/06/16 03:30 57 16 136/90 100 Room Air 10/05/16 23:30 77 16 134/68 99 Nasal Cannula 2 10/05/16 21:30 66 16 136/77 99 Nasal Cannula 2 10/05/16 19:01 98.5 94 16 166/85 98 10/05/16 19:01 99 Room Air Physical Exam GENERAL: This is a morbidly obese patient, in no apparent distress. SKIN: No rashes, ecchymoses or lesions. Cool and dry. HEAD: Atraumatic. Normocephalic. EYES: No scleral icterus. No injection or drainage. ENT: Nose without bleeding, purulent drainage. NECK: Trachea midline. No JVD or lymphadenopathy. CARDIOVASCULAR: Regular rate and rhythm without murmurs, gallops, or rubs. RESPIRATORY: Clear to auscultation. Breath sounds equal bilaterally. No wheezes , rales, or rhonchi. GASTROINTESTINAL: Abdomen soft, non-tender, nondistended. No guarding. MUSCULOSKELETAL: Extremities without clubbing, cyanosis, or edema. No calf tenderness. NEUROLOGICAL: Awake and alert. Motor and sensory grossly within normal limits. Normal speech. . Laboratory Laboratory Tests Test 10/05/16 10/05/16 10/05/16 19:10 19:15 22:04 White Blood Count 10.9 Red Blood Count 4.86 Hemoglobin 15.2 Hematocrit 43.1 Mean Corpuscular Volume 88.8 Mean Corpuscular Hemoglobin 31.2 Mean Corpuscular Hemoglobin 35.2 Concent Red Cell Distribution Width 13.7 Platelet Count 232 Mean Platelet Volume 9.7 Neutrophils (%) (Auto) 69.9 Lymphocytes (%) (Auto) 22.7 Monocytes (%) (Auto) 6.1 Eosinophils (%) (Auto) 0.3 Basophils (%) (Auto) 1.0 Neutrophils # (Auto) 7.6 Lymphocytes # (Auto) 2.5 Monocytes # (Auto) 0.7 Eosinophils # (Auto) 0.0 Basophils # (Auto) 0.1 CBC Comment DIFF FINAL Differential Comment Urine Opiates Screen NEG Urine Barbiturates Screen POS Urine Amphetamines Screen NEG Urine Benzodiazepines Screen POS Urine Cocaine Screen NEG Urine Cannabinoids Screen POS Sodium Level 140 Potassium Level 3.4 Chloride Level 106 Carbon Dioxide Level 23.2 Anion Gap 11 Blood Urea Nitrogen 8 Creatinine 1.52 Estimat Glomerular Filtration 65 Rate Random Glucose 81 Calcium Level 8.4 Total Bilirubin 0.5 Aspartate Amino Transf 15 (AST/SGOT) Alanine Aminotransferase 30 (ALT/SGPT) Alkaline Phosphatase 73 Total Protein 7.2 Albumin 3.7 Phenytoin (Dilantin) Level LESS THAN 0.4 Ethyl Alcohol Level LESS THAN 3 Result Diagram: 10/05/16 1910 10/05/16 2204 Imaging Last Impressions Head CT 10/05/16 0000 Signed Impressions: Service Date/Time: Wednesday, October 05, 2016 19:25 - CONCLUSION: Negative noncontrast head CT. Rebel Dawn MD . Assessment and Plan Problem List: (1) Seizure disorder, status epilepticus, convulsive ICD Code: G40.301 Status: Acute (2) H/O tonic-clonic seizures ICD Code: Z86.69 Status: Acute (3) H/O anxiety disorder ICD Code: Z86.59 Status: Acute (4) Poorly-controlled hypertension ICD Code: I10 Status: Acute (5) Acute renal insufficiency ICD Code: N28.9 Status: Acute (6) Toothache ICD Code: K08.89 Status: Acute (7) Substance abuse ICD Code: F19.10 Status: Acute Assessment and Plan Mr. Santiago is a 31 year old male who is visiting his sister in the [place] area is from [place]. His past medical history of seizures, cardiomyopathy, and hypertension then presented to the emergency room on 10/05/2016 after experiencing a seizure that was witnessed by his grandmother followed by 2 more in front of EMS. Seizures- breakthrough seizures vs withdrawal seizures - Seizure precautions - Ativan 1 mg IV every 15 minutes as needed for seizures - Toxicology positive for barbiturates, benzodiazepines, and cannabinoids - Seizure related to alcohol withdrawal? Benzo withdrawal? - Neuro checks every 4 hours Anxiety - Restart home Klonopin Hypertension, poorly controlled - Monitor vital signs every 4 hours - Restart home clonidine, amlodipine, losartan, and metoprolol - Trends in blood pressures and adjust treatment as needed Toothache - Oxycodone 5 mg every 8 hours when necessary by mouth toothache/pain Substance abuse/Daily alcohol use - per patient's sister - denied by patient - Ativan 1 mg IV push every 2 hours as needed for withdrawal symptoms - Advised cessation - Thiamine 100 mg by mouth daily Acute renal insufficiency - BUN 8, creatinine 1.52, estimated GFR 65- slightly worse then they were during visit on 09/26/2016 (seen for chest pain - left AMA) - Received IV NS fluid bolus and about 5 hours of normal saline at 100 cc/h in the ER - fluids were stopped due to history of cardiomyopathy - Recheck BMP and follow trends in renal indices - Avoid nephrotoxins DVT prophylaxis - SCDs (may require outpatient dental surgery - hold anticoagulation for now) Written by Trang Isabel, acting as scribe for Dr. Bean on 10/06/16 at 04:55. All or portions of this note were transcribed by scribe [Trang Isabel]. I, Dr. Rene Bean personally performed the history, physical exam, and medical decision making; and confirmed the accuracy of the information in the transcribed note. Authenticated by Dr. Rene Bean on 10/06/16 at 0455 . Discussed Condition With ER physician, patient's sister, and patient Physician Certification 2 Midnight Certification Type: Admission for Inpatient Services Order for Inpatient Services The services are ordered in accordance with Medicare regulations or non- Medicare payer requirements, as applicable. In the case of services not specified as inpatient-only, they are appropriately provided as inpatient services in accordance with the 2-midnight benchmark. Estimated LOS (days): 3 days is the estimated time the patient will need to remain in the hospital, assuming treatment plan goals are met and no additional complications. Post-Hospital Plan: Not yet determined Trang Isabel Oct 06, 2016 04:43 Rene Bean MD Oct 06, 2016 08:27
[2016-10-06 04:45] LABS: AUTOMATED NEUTROPHIL # 5.9 TH/MM3 (1.8-7.7); BASOPHIL # 0.1 TH/MM3 (0-0.2); BASOPHIL % 0.7 % (0.0-2.0); EOSINOPHIL # 0.1 TH/MM3 (0-0.4); EOSINOPHIL % 1.1 % (0.0-4.0); HEMATOCRIT 42.4 % (39.0-51.0); HEMO FLAGS DIFF FINAL; LYMPH % 27.2 % (9.0-44.0); LYMPHOCYTE # 2.6 TH/MM3 (1.0-4.8); MEAN CELL VOLUME 90.4 FL (80.0-100.0); MEAN CORPUSCULAR HEMOGLOBIN 31.4 PG (27.0-34.0); MEAN CORPUSCULAR HGB CONC 34.8 % (32.0-36.0); MONO % 8.7 % (0.0-8.0); NEUT % 62.3 % (16.0-70.0); PLATELET COUNT 125 TH/MM3 (150-450); RED BLOOD COUNT 4.69 MIL/MM3 (4.50-5.90); RED CELL DISTRIBUTION WIDTH 13.6 % (11.6-17.2); WHITE BLOOD COUNT 9.4 TH/MM3 (4.0-11.0)
[2016-10-06] MEDS ORDERED: THIAMINE HCL 100 MG TAB PO ONE (05:00)
[2016-10-06 05:11] LABS: BICARBONATE 17.1 MEQ/L (21.0-32.0); POTASSIUM 4.7 MEQ/L (3.5-5.1)
[2016-10-06] MEDS: clonazePAM 1 MG TAB PO SCH ×2 (08:03→21:11)
[2016-10-06] MEDS: cloNIDine HCL 0.3 MG TAB PO SCH ×2 (08:04→21:11)
[2016-10-06] MEDS: THIAMINE HCL 100 MG TAB PO SCH (08:04)
[2016-10-06] MEDS ORDERED: LOSARTAN 25 MG TAB PO SCH (09:00)
[2016-10-06] MEDS: SODIUM CHLORIDE 0.9% FLUSH 5 ML FLUSH FLUSH SCH ×2 (09:00→21:23)
[2016-10-06] MEDS ORDERED: METOPROLOL TARTRATE 25 MG TAB PO SCH (09:00)
[2016-10-06] MEDS: LORazepam 2 MG/ML VIAL IV PUSH PRN ×4 (12:10→21:08)
[2016-10-06] MEDS ORDERED: hydrALAZINE HCL 20 MG/ML VIAL IV PUSH PRN (12:45)
[2016-10-06] MEDS ORDERED: ENALAPRILAT 1.25 MG/ML VIAL IV PUSH PRN (12:45)
--- NOTE | 2016-10-06 13:02 | EKG ---
Date Performed: 10/05/2016 Time Performed: 19:09:57 PTAGE: 31 years EKG: Sinus rhythm POSSIBLE RIGHT ATRIAL ENLARGEMENT LEFT AXIS DEVIATION LEFT VENTRICULAR HYPERTROPHY AND ST-T CHANGE A BNORMAL ECG PREVIOUS TRACING : 09/26/2016 19.22 No change from previous tracing noted. DOCTOR: Maikel Wilhelm Interpretating Date/Time 10/06/2016 13:00:28
[2016-10-06] MEDS ORDERED: METOPROLOL TARTRATE 25 MG TAB PO ONE (19:00)
[2016-10-06] MEDS ORDERED: LOSARTAN 25 MG TAB PO ONE (19:00)
[2016-10-06] MEDS ORDERED: hydrALAZINE HCL 20 MG/ML VIAL IV ONE (19:00)
[2016-10-06] MEDS ORDERED: hydrALAZINE HCL 20 MG/ML VIAL IV PRN (19:00)
[2016-10-06] MEDS: METOPROLOL TARTRATE 50 MG TAB PO SCH (21:12)
[2016-10-07] VITALS (14 sets, daily range): BP systolic 128–154; BP diastolic 77–94; PULSE 61–90; RESP 16–18; TEMP 97.9–98.7; O2SAT 99
[2016-10-07] MEDS: LORazepam 2 MG/ML VIAL IV PUSH PRN ×2 (05:19→10:30)
[2016-10-07] MEDS: SODIUM CHLORIDE 0.9% FLUSH 5 ML FLUSH FLUSH SCH (08:19)
[2016-10-07] MEDS: cloNIDine HCL 0.3 MG TAB PO SCH (08:19)
[2016-10-07] MEDS: THIAMINE HCL 100 MG TAB PO SCH (08:19)
[2016-10-07] MEDS: clonazePAM 1 MG TAB PO SCH (08:20)
[2016-10-07] MEDS: METOPROLOL TARTRATE 50 MG TAB PO SCH (08:20)
[2016-10-07] MEDS ORDERED: LOSARTAN 50 MG TAB PO SCH (09:00)
[2016-10-07] MEDS ORDERED: METO-309 PO (10:31)
[2016-10-07] MEDS ORDERED: VITA100T2 PO (10:31)
[2016-10-07] MEDS ORDERED: COZA50TA PO (10:31)
--- NOTE | 2016-10-07 10:34 | HHI.PR ---
Subjective Remarks Patient doing better today No more seizure episodes No chest pain dizziness or lightheadedness or headache I discussed with him extensively, advised to continue on his Dilantin until seeing his neurologist was in [place] Also advised not to drive or swim or operating heavy machinery until then Objective Vitals Vital Signs Date Time Temp Pulse Resp B/P Pulse Ox O2 Delivery O2 Flow Rate FiO2 10/07/16 09:18 16 10/07/16 09:00 90 10/07/16 08:10 98.7 88 16 149/94 99 10/07/16 08:00 86 10/07/16 07:00 67 10/07/16 06:00 70 10/07/16 05:00 78 10/07/16 04:01 61 10/07/16 04:00 98.7 71 18 154/90 99 10/07/16 03:00 66 10/07/16 02:00 70 10/07/16 01:00 68 10/07/16 00:00 70 10/07/16 00:00 97.9 71 18 128/77 99 10/06/16 23:00 82 10/06/16 22:00 78 10/06/16 21:00 70 10/06/16 20:00 101 10/06/16 20:00 99.3 80 20 175/95 98 10/06/16 19:00 106 10/06/16 18:01 96 10/06/16 17:57 102 10/06/16 16:00 112 10/06/16 15:46 97.9 116 22 179/100 99 10/06/16 15:00 130 10/06/16 14:02 108 10/06/16 13:31 100 10/06/16 12:15 98.3 84 18 174/104 100 10/06/16 12:00 72 10/06/16 11:45 98.0 75 24 138/84 96 10/06/16 11:00 77 I/O 10/06/16 10/06/16 10/06/16 10/07/16 10/07/16 10/07/16 07:00 15:00 23:00 07:00 15:00 23:00 Intake Total 1400 ml 480 ml Output Total 175 ml Balance 1400 ml 305 ml Intake Oral 1000 ml 480 ml IV Total 400 ml Output Urine Total 175 ml # Voids 8 # Bowel Movements 1 Result Diagram: 10/06/16 0415 10/06/16 0425 Objective Remarks GENERAL: This is a well-nourished, well-developed patient, in no apparent distress. SKIN: No rashes, warm and dry HEAD: Atraumatic. Normocephalic. EYES: Pupils equal round and reactive. Extraocular motions intact. No scleral icterus. ENT: Nose without bleeding, or drainage, Airway patent. NECK: Trachea midline. Supple CARDIOVASCULAR: Regular rate and rhythm without murmurs, gallops, or rubs. RESPIRATORY: Fair air entry bilaterally. No wheezes, rales, or rhonchi. GASTROINTESTINAL: Abdomen soft, non-tender, nondistended. Positive bowel sounds MUSCULOSKELETAL: Extremities without clubbing, cyanosis, or edema. Pedal pulses appreciated NEUROLOGICAL: Awake and alert. Moves all extremity. Normal speech.no focal neurological deficit A/P Problem List: (1) Seizure disorder, status epilepticus, convulsive ICD Code: G40.301 Status: Acute (2) H/O tonic-clonic seizures ICD Code: Z86.69 Status: Acute (3) H/O anxiety disorder ICD Code: Z86.59 Status: Acute (4) Poorly-controlled hypertension ICD Code: I10 Status: Acute (5) Acute renal insufficiency ICD Code: N28.9 Status: Acute (6) Toothache ICD Code: K08.89 Status: Acute (7) Substance abuse ICD Code: F19.10 Status: Acute Assessment and Plan Mr. Santiago is a 31 year old male who is visiting his sister in the [place] area is from [place]. His past medical history of seizures, cardiomyopathy, and hypertension then presented to the emergency room on 10/05/2016 after experiencing a seizure that was witnessed by his grandmother followed by 2 more in front of EMS. Acute seizure episode- possibly breakthrough seizure disorder vs withdrawal seizures - Seizure precautions -Verified Dilantin dose with the patient pharmacy is on 100 mg by mouth daily, will resume those - Ativan 1 mg IV every 15 minutes as needed for seizures - Toxicology positive for barbiturates, benzodiazepines, and cannabinoids - Seizure related to alcohol withdrawal? Benzo withdrawal? - Neuro checks every 4 hours Anxiety - Restart home Klonopin Hypertension, poorly controlled>> improved - Monitor vital signs every 4 hours - Restart home clonidine, amlodipine, we will double losartan, and metoprolol - Trends in blood pressures and adjust treatment as needed Toothache - Oxycodone 5 mg every 8 hours when necessary by mouth toothache/pain Substance abuse/Daily alcohol use - per patient's sister - denied by patient - Ativan 1 mg IV push every 2 hours as needed for withdrawal symptoms - Advised cessation - Thiamine 100 mg by mouth daily Acute renal insufficiency - BUN 8, creatinine 1.52, estimated GFR 65- slightly worse then they were during visit on 09/26/2016 (seen for chest pain - left AMA) - Received IV NS fluid bolus and about 5 hours of normal saline at 100 cc/h in the ER - fluids were stopped due to history of cardiomyopathy - Recheck BMP and follow trends in renal indices - Avoid nephrotoxins Discharge Planning Discharge patient to home Condition on discharge: Improved Healthy heart no cell Diet as tolerated Ad Anila activity Rx written: Losartan 50, metoprolol 50, Dilantin 100 mg daily Follow-up with primary care physician and neurology within 1 week in [place] MD Oct 07, 2016 10:34
[2016-10-07] MEDS ORDERED: DILA100C PO (10:54)
[2016-10-07] MEDS ORDERED: CLON2TAB PO (11:12)
== END 2016-10-07 11:27 | disposition home or self-care (01) | DRG 101 ==
LOC: NEPC 18:58 → NEDA 22:10 → OBSVTOIN 22:10 → NEDH 10-06 02:15 → HCIS 10-06 07:31
PROVIDERS: ADMIT Hospitalist; ATTEND Hospitalist
DX: G40.901 Epilepsy, unspecified, not intractable, with status epilepticus (principal); I42.9 Cardiomyopathy, unspecified; I10 Essential (primary) hypertension; F41.9 Anxiety disorder, unspecified; N28.9 Disorder of kidney and ureter, unspecified; K08.89 Other specified disorders of teeth and supporting structures; F17.210 Nicotine dependence, cigarettes, uncomplicated; E66.01 Morbid (severe) obesity due to excess calories; Z68.37 Body mass index [BMI] 37.0-37.9, adult; Z91.14 Patient's other noncompliance with medication regimen; F19.10 Other psychoactive substance abuse, uncomplicated
CPT/HCPCS: 70450; 80048; 80053; 80185; 80307; 85025; 93005; J0360; J2060; J7030; Q2009

== ENCOUNTER 2016-10-17 14:43 | Inpatient (IN) | payer MEDICAID ==
[~2016-10-17] VITALS: Ht 188 cm; Wt 115.0 kg
[2016-10-17] VITALS (10 sets, daily range): BP systolic 101–134; BP diastolic 55–72; PULSE 58–76; RESP 16–20; TEMP 96.4–98.4; O2SAT 95–99
[~2016-10-17 14:43] MED LIST changes: +AMLO10TA2 PO; -CLON1 PO; +CLON2TAB PO; +COZA50TA PO; +DILA100C PO; +KLON2TAB PO; +METO-309 PO; +VITA100T2 PO
[2016-10-17] MEDS ORDERED: LORazepam 2 MG/ML VIAL ONE (15:04)
[2016-10-17] MEDS ORDERED: SODIUM CHLOR 0.9% 1000 ML INJ 1,000 ML IV ONE ×2 (15:04→15:45)
[2016-10-17] MEDS ORDERED: levETIRAcetam INJ 1,000 MG in SODIUM CHLORIDE 0.9% INJ 100 ML IV ONE (15:15)
[2016-10-17] MEDS ORDERED: LORazepam 2 MG/ML VIAL IV PUSH ONE (15:15)
--- NOTE | 2016-10-17 15:20 | RADRPT ---
EXAM DATE/TIME: 10/17/2016 15:02 [facility] COMPARISON: CT BRAIN W/O CONTRAST, October 05, 2016, 19:25. INDICATIONS : Stroke alert. Aphasia and general weakness. History of seizures RADIATION DOSE: 56.35 CTDIvol (mGy) This report was called by Dr. Sanches to Dr. Toro at 1517 hrs. MEDICAL HISTORY : Non-responsive. SURGICAL HISTORY : Non-responsive. ENCOUNTER: Initial ACUITY: 1 day PAIN SCALE: Non-responsive LOCATION: Bilateral head TECHNIQUE: Multiple contiguous axial images were obtained of the head. Using automated exposure control and adj ustment of the mA and/or kV according to patient size, radiation dose was kept as low as reasonably a chievable to obtain optimal diagnostic quality images. FINDINGS: CEREBRUM: The ventricles are normal for age. No evidence of midline shift, mass lesion, hemorrhage or acute in farction. No extra-axial fluid collections are seen. POSTERIOR FOSSA: The cerebellum and brainstem are intact. The 4th ventricle is midline. The cerebellopontine angle i s unremarkable. EXTRACRANIAL: The visualized portion of the orbits is intact. SKULL: The calvaria is intact. No evidence of skull fracture. CONCLUSION: Unremarkable noncontrast head CT. Hunter Sanches MD on October 17, 2016 at 15:16 Board Certified Radiologist. This report was verified electronically.
[2016-10-17 15:22] LABS: AUTOMATED NEUTROPHIL # 8.5 TH/MM3 (1.8-7.7); BASOPHIL # 0.1 TH/MM3 (0-0.2); BASOPHIL % 0.6 % (0.0-2.0); EOSINOPHIL % 0.2 % (0.0-4.0); HEMATOCRIT 46.5 % (39.0-51.0); HEMO FLAGS DIFF FINAL; I-STAT POTASSIUM 3.4 MMOL/L (3.5-4.9); I-STAT SODIUM 143 MMOL/L (138-146); LYMPH % 22.4 % (9.0-44.0); LYMPHOCYTE # 2.8 TH/MM3 (1.0-4.8); MEAN CELL VOLUME 90.9 FL (80.0-100.0); MEAN CORPUSCULAR HEMOGLOBIN 30.6 PG (27.0-34.0); MEAN CORPUSCULAR HGB CONC 33.6 % (32.0-36.0); MONO % 8.2 % (0.0-8.0); NEUT % 68.6 % (16.0-70.0); PLATELET COUNT 224 TH/MM3 (150-450); RED BLOOD COUNT 5.11 MIL/MM3 (4.50-5.90); RED CELL DISTRIBUTION WIDTH 14.1 % (11.6-17.2); WHITE BLOOD COUNT 12.5 TH/MM3 (4.0-11.0)
--- NOTE | 2016-10-17 15:29 | PD ---
HPI Chief Complaint: Stroke Alert Time Seen by Provider: 15:04 Travel History International Travel<30 days: No Contact w/Intl Traveler<30days: No History of Present Illness HPI So 31-year-old man who presents to the emergency department brought in by family for altered mental status. They states symptoms started 5 minutes ago. They report that they noticed that he in the backseat of a car when he was sort of twitching and not to be feeding well. They went to go check on him he could walk, couldn't really answer questions. He thought he may have been having a seizure. His a history of seizures but normally is generalized convulsions when he has seizures. They did not notice any generalized convulsions. A sling the hospital for having multiple seizures back to back. He takes Dilantin. They think he is been taking it. They also say recently he was told he had an enlarged heart. He reports taking all his medicines. On further questioning he reports he really hasn't been acting right past 24 hours or so, more sluggish and not really talking normally. History Past Medical History Narrative Medical Seizures Hypertension Enlarged heart Social History Alcohol Use: Yes Tobacco Use: Yes (2 cigs/day) Allergies-Medications (Allergen,Severity, Reaction): Coded Allergies: No Known Allergies (Unverified , 09/26/16) Reported Meds & Prescriptions Reported Meds & Active Scripts Active Clonazepam 2 Mg Tab 2 Mg PO BID Dilantin (Phenytoin Extended) 100 Mg Cap 100 Mg PO BID Vitamin B-1 (Thiamine HCl) 100 Mg Tab 100 Mg PO DAILY Lopressor (Metoprolol Tartrate) 50 Mg Tab 50 Mg PO BID Cozaar (Losartan Potassium) 50 Mg Tab 50 Mg PO DAILY Reported Lortab (Hydrocodone-Acetaminophen) 7.5-325 Mg Tab 1 Tab PO Q6H PRN Clonidine (Clonidine HCl) 0.2 Mg Tab 0.2 Mg PO BID Amlodipine (Amlodipine Besylate) 10 Mg Tab 10 Mg PO DAILY Review of Systems Except as stated in HPI: all other systems reviewed are Neg Physical Exam Narrative GENERAL: 31-year-old man, appears confused, eyes running about the room. He'll interact some but is clearly altered. SKIN: Warm and dry. HEAD: Atraumatic. Normocephalic. EYES: Pupils equal and round. No scleral icterus. No injection or drainage. ENT: No nasal bleeding or discharge. Mucous membranes pink and moist. NECK: Trachea midline. No JVD. CARDIOVASCULAR: Regular rate and rhythm. No murmur appreciated. RESPIRATORY: Patient appears to be breathing a little bit rapidly. Some coarse wet breathing with upper airway congestion. GASTROINTESTINAL: Abdomen is obese and soft. Is no grimace with palpation. MUSCULOSKELETAL: No obvious deformities. No edema. NEUROLOGICAL: Awake and somewhat decreased alertness. Look about the room but appears confused. He will track keep. He'll answer some questions although the speech is very slow to understand. He'll follow some commands. He moves all 4 extremities. On direct testing his strength seems to be full and equal. He states that he can feel everything on both sides. It looks like he has a little bit of left-sided facial droop flattening of the nasolabial fold. He has trouble with speech articulation and also with word finding. Data Data Last Documented VS Vital Signs Date Time Temp Pulse Resp B/P Pulse Ox O2 Delivery O2 Flow Rate FiO2 10/17/16 16:02 97 Nasal Cannula 2 10/17/16 16:01 58 18 101/57 10/17/16 14:44 98.2 Orders Diet Npo (10/17/16 Dinner) Activity Bed Rest (10/17/16 ) Electrocardiogram (10/17/16 ) I-Stat Creatinine (10/17/16 15:04) I-Stat Profile (10/17/16 15:04) Prothrombin Time / Inr (Pt) (10/17/16 15:04) Act Partial Throm Time (Ptt) (10/17/16 15:04) Complete Blood Count With Diff (10/17/16 15:04) Fibrinogen (10/17/16 15:04) Creatine Kinase (Cpk) (10/17/16 15:04) Troponin I (10/17/16 15:04) Ua Includes Microscopic (10/17/16 15:04) Drug Screen, Random Urine (10/17/16 15:04) Type And Screen (10/17/16 15:04) Ct Brain W/O Iv Contrast(Rout) (10/17/16 ) Consult Neurology (10/17/16 ) Lorazepam Inj (Ativan Inj) (10/17/16 15:04) Blood Glucose (10/17/16 15:04) Ecg Monitoring (10/17/16 15:04) Neuro Checks Q2HX12,Q4H (10/17/16 15:04) Nursing Bedside Swallow Assess .ONCE (10/17/16 15:04) Iv Access Insert/Monitor (10/17/16 15:04) NPO (10/17/16 15:04) Oximetry (10/17/16 15:04) Oxygen Administration (10/17/16 15:04) Sodium Chlor 0.9% 1000 Ml Inj (Ns 1000 M (10/17/16 15:04) Resp Oxygen Aryan C Titrat 1-4 L (10/17/16 15:04) Cath For Specimen (10/17/16 15:04) Lorazepam Inj (Ativan Inj) (10/17/16 15:15) Levetiracetam Inj (Keppra Inj) (10/17/16 15:15) Phenytoin (Dilantin) (10/17/16 15:04) Arterial Blood Gas (Abg) (10/17/16 ) Alcohol (Ethanol) (10/17/16 15:00) Chest, Single Ap (10/17/16 ) Sodium Chlor 0.9% 1000 Ml Inj (Ns 1000 M (10/17/16 15:45) CKMB (10/17/16 15:00) CKMB% (10/17/16 15:00) Fosphenytoin Inj (Cerebyx Inj) (10/17/16 16:15) Labs Laboratory Tests Test 10/17/16 10/17/16 10/17/16 10/17/16 15:00 15:29 15:42 16:09 White Blood Count 12.5 TH/MM3 Red Blood Count 5.11 MIL/MM3 Hemoglobin 15.6 GM/DL Bedside Hemoglobin 17.0 G/DL Hematocrit 46.5 % Bedside Hematocrit 50.0 % Mean Corpuscular Volume 90.9 FL Mean Corpuscular Hemoglobin 30.6 PG Mean Corpuscular Hemoglobin 33.6 % Concent Red Cell Distribution Width 14.1 % Platelet Count 224 TH/MM3 Mean Platelet Volume 9.3 FL Neutrophils (%) (Auto) 68.6 % Lymphocytes (%) (Auto) 22.4 % Monocytes (%) (Auto) 8.2 % Eosinophils (%) (Auto) 0.2 % Basophils (%) (Auto) 0.6 % Neutrophils # (Auto) 8.5 TH/MM3 Lymphocytes # (Auto) 2.8 TH/MM3 Monocytes # (Auto) 1.0 TH/MM3 Eosinophils # (Auto) 0.0 TH/MM3 Basophils # (Auto) 0.1 TH/MM3 CBC Comment DIFF FINAL Differential Comment Prothrombin Time 10.8 SEC Prothromb Time International 1.0 RATIO Ratio Activated Partial 25.5 SEC Thromboplast Time Fibrinogen 308 mg/dL Bedside Sodium 143 MMOL/L Bedside Potassium 3.4 MMOL/L Bedside Chloride 105 MMOL/L Bedside Blood Urea Nitrogen 10 MG/DL Bedside Creatinine 1.0 MG/DL Bedside Glucose 101 MG/DL Total Creatine Kinase 948 U/L Creatine Kinase MB 23.7 NG/ML Creatine Kinase MB % 2.5 % Troponin I 0.02 NG/ML Phenytoin (Dilantin) Level 1.3 MCG/ML Ethyl Alcohol Level LESS THAN 3 MG/DL Blood Type B POSITIVE Antibody Screen NEGATIVE Blood Bank Comment Blood Gas Puncture Site LT RADIAL Blood Gas Patient Temperature 98.6 Blood Gas HCO3 25 mmol/L Blood Gas Base Excess 1.2 mmol/L Blood Gas Oxygen Saturation 96 % Arterial Blood pH 7.44 Arterial Blood Partial 37 mmHg Pressure CO2 Arterial Blood Partial 126 mmHG Pressure O2 Arterial Blood Oxygen Content 21.2 Vol % Arterial Blood 2.0 % Carboxyhemoglobin Arterial Blood Methemoglobin 0.7 % Blood Gas Hemoglobin 15.6 G/DL Oxygen Delivery Device NASAL CANNULA Blood Gas Liter Flow 2 L/M Urine Opiates Screen NEG Urine Barbiturates Screen NEG Urine Amphetamines Screen NEG Urine Benzodiazepines Screen POS Urine Cocaine Screen NEG Urine Cannabinoids Screen POS Urine Color YELLOW Urine Turbidity CLEAR Urine pH 6.5 Urine Specific [place] 1.028 Urine Protein 100 mg/dL Urine Glucose (UA) NEG mg/dL Urine Ketones 40 mg/dL Urine Occult Blood TRACE Urine Nitrite NEG Urine Bilirubin NEG Urine Urobilinogen LESS THAN 2.0 MG/DL Urine Leukocyte Esterase NEG Urine RBC 2 /hpf Urine WBC 1 /hpf Urine Squamous Epithelial 2 /hpf Cells Urine Hyaline Casts 4 /lpf Urine Mucus FEW /lpf Microscopic Urinalysis Comment [facility] Medical Decision Making Medical Screen Exam Complete: Yes Emergency Medical Condition: Yes Interpretation(s) My review of EKG: Sinus rhythm at a rate of 62, leftward axis with LVH with marked lateral ST depressions and T-wave inversions, unchanged from previous. Differential Diagnosis Seizure, postictal paralysis, stroke, bleed, other Narrative Course Medical decision making 31-year-old male presents to the emergency department with bitemporal mental status. Initially said symptoms started 20 minutes ago but then he reports that he really wasn't acting normally yesterday. Some suspicion the patient may still be seizing. He may be having him flex partial seizures or postictal state. Strokes also possible symptoms likely. Initially he was called as a stroke alert, I spoke with Dr Wilks, patient is not a TPA candidate because of the likelihood of seizures as the etiology, and the unclear time of onset. We' ll check CT head, labs, blood gas, reassess. FINAL: Patient still with altered mental status. I spoke with concerns that he may be partial seizures. He was loaded with Keppra and phenytoin, as well as an. He is a little bit sleepy now with the Ativan but still seems clearly altered. Mom states at baseline he is awake and normal mental status. We'll plan on admission for further evaluation. Diagnosis Primary Impression: Altered mental status Additional Impression: Seizures Kee Toro MD Oct 17, 2016 15:29
[2016-10-17 15:35] LABS: APTT (PATIENT) 25.5 SEC (24.3-30.1); PROTHROMBIN TIME - PATIENT 10.8 SEC (9.8-11.6)
[2016-10-17 15:39] LABS: BLOOD GAS BASE EXCESS 1.2 mmol/L (-2-2); BLOOD GAS HCO3 25 mmol/L (22-26); BLOOD GAS METHEMOGLOBIN 0.7 % (0-2); BLOOD GAS O2 HGB SATURATION 96 % (90-100); BLOOD GAS OXYGEN CONTENT 21.2 Vol % (12.0-20.0); BLOOD GAS PCO2 37 mmHg (38-42); BLOOD GAS PO2 126 mmHG (61-120); BLOOD GAS TOTAL HGB 15.6 G/DL (12.0-16.0); TEMP CORR TO 98.6
[2016-10-17 15:40] LABS: CRITICAL VALUE NO; DRAW SITE LT RADIAL; LITER FLOW 2 L/M; NUMBER OF ARTERIAL PUNCTURES 1; OXYGEN DEVICE NASAL CANNULA; STAT YES; ULNAR PULSE PRESENT
[2016-10-17 15:41] LABS: CREATINE KINASE 948 U/L (39-308)
[2016-10-17 16:00] LABS: CKMB 23.7 NG/ML (0.5-3.6)
--- NOTE | 2016-10-17 16:05 | RADRPT ---
EXAM DATE/TIME: 10/17/2016 15:53 [facility] COMPARISON: CHEST SINGLE AP, September 26, 2016, 19:10. INDICATIONS : Shortness of breath. MEDICAL HISTORY : None. SURGICAL HISTORY : None. ENCOUNTER: Initial ACUITY: 1 day PAIN SCORE: Non-responsive. LOCATION: Bilateral chest FINDINGS: A single view of the chest demonstrates the lungs to be symmetrically aerated without evidence of mas s, infiltrate or effusion. The cardiomediastinal contours are unremarkable. Osseous structures are intact. CONCLUSION: No acute disease. Hunter Sanches MD on October 17, 2016 at 16:03 Board Certified Radiologist. This report was verified electronically.
[2016-10-17] MEDS ORDERED: HYDR-3534 PO (16:07)
[2016-10-17] MEDS ORDERED: CLON0.2T PO (16:07)
[2016-10-17 16:15] LABS: BLOOD, URINE TRACE (NEG); GLUCOSE,URINE NEG (NEG); HYALINE CAST, URINE 4 /lpf (RARE); KETONE, URINE 40 mg/dL (NEG); MUCUS URINE FEW /lpf (OCC); NITRITE,URINE NEG (NEG); PH, URINE 6.5 (5.0-8.5); SQUAMOUS EPITHELIAL CELL URINE 2 /hpf (0-5); URINE COLOR YELLOW (YELLW/STRAW)
[2016-10-17] MEDS ORDERED: FOSPHENYTOIN INJ 1,000 MGPE in SODIUM CHLORIDE 0.9% INJ 50 ML IV ONE (16:15)
[2016-10-17 16:23] LABS: AMPHETAMINE, URINE NEG (NEG); BARBITURATES, URINE NEG (NEG); COCAINE, URINE NEG (NEG)
--- NOTE | 2016-10-17 18:03 | EKG ---
Date Performed: 10/17/2016 Time Performed: 15:21:39 PTAGE: 31 years EKG: Sinus rhythm POSSIBLE RIGHT VENTRICULAR CONDUCTION DELAY LEFT VENTRICULAR HYPERTROPHY AND ST-T CHANGE ABNORMAL EC G COMPARED TO PRIOR ELECTROCARDIOGRAM, Rate has slowed and lateral precordial ST T-wave changes are m ore marked. PREVIOUS TRACING : 10/05/2016 19.09 DOCTOR: Zain Cool Interpretating Date/Time 10/17/2016 18:01:49
[2016-10-17] MEDS ORDERED: ONDANSETRON HCL 4 MG/2 ML VIAL IVP PRN (18:15)
[2016-10-17] MEDS ORDERED: SODIUM CHLORIDE 0.9% FLUSH 5 ML FLUSH FLUSH PRN (18:15)
[2016-10-17] MEDS ORDERED: ACETAMINOPHEN 325 MG TAB PO PRN (18:15)
[2016-10-17] MEDS ORDERED: NALOXONE HCL 0.4 MG/ML AMP IV PRN (18:15)
[2016-10-17] MEDS ORDERED: LORazepam 2 MG/ML VIAL IV PUSH PRN ×5 (18:15→18:30)
--- NOTE | 2016-10-17 18:26 | HHI.HP ---
[facility] Service [facility] Primary Care Physician No Primary Care Physician Admission Diagnosis altered mental status, seizures Diagnoses: Chief Complaint: Altered mental status Travel History International Travel<30 Days: No Contact w/Intl Traveler <30 Da: No History of Present Illness The patient is a 31-year-old male with past medical history of seizure disorder who is presenting to the hospital following a seizure. The patient was lethargic secondary to medications he received so history was limited. The patient's family noticed that he has been having difficulty talking and has been acting confused. They also noticed he has been twitching. The patient's family mentions that he appears to have been having seizures while sleeping overnight. The patient was initially called in as a stroke alert and neurology was called and recommended treatment for seizure at this time. The patient was loaded with Keppra and phenytoin. The patient was recently admitted to the hospital for another seizure and was discharged after a couple of days. The patient is now lethargic and able to communicate but he mumbles and closes his eyes frequently. He does seem to indicate left-sided chest pain. He is unable to elaborate further on it but he does point to his chest. He says he does not feel weak anywhere and denies any numbness or tingling sensations. Review of Systems ROS Limitations: Clinical Condition, Altered Mental Status, Poor Historian Except as stated in HPI: all other systems reviewed are Neg Past Family Social History Past Medical History Seizure disorder Hypertension Cardiomyopathy Past Surgical History Knee surgery Allergies: Coded Allergies: No Known Allergies (Unverified , 09/26/16) Active Ordered Medications Current Medications Medications (Trade) Dose Ordered Sig/Chito Route Start Time Stop Time Status Last Admin (NS 1000 ml Inj) 1,000 ml @ 70 mls/hr [id number] ONCE IV 10/17/16 15:04 10/18/16 05:21 10/17/16 15:46 (KlonoPIN) 2 mg BID PO 10/17/16 21:00 UNV Phenytoin 100 mg 100 mg BID PO 10/17/16 21:00 UNV (/2 NS 1000 ml Inj) 1,000 ml @ 75 mls/hr [id number] IV 10/17/16 18:12 (NS Flush) 2 ml UNSCH PRN FLUSH 10/17/16 18:15 UNV (NS Flush) 2 ml BID FLUSH 10/17/16 21:00 UNV (Tylenol) 650 mg Q4H PRN PO 10/17/16 18:15 (Zofran Inj) 4 mg Q6H PRN IVP 10/17/16 18:15 UNV (Tylenol) 650 mg Q6H PRN PO 10/17/16 18:15 UNV (Narcan Inj) 0.4 mg UNSCH PRN IV 10/17/16 18:15 UNV (Ativan Inj) 2 mg Q2H PRN IV PUSH 10/17/16 18:15 UNV Family History Diabetes Social History From recent admission as the pt is altered: Smokes 2 cigarettes per day; Alcohol : 6 pack per day; Drugs: denies Physical Exam Vital Signs Vital Signs Date Time Temp Pulse Resp B/P Pulse Ox O2 Delivery O2 Flow Rate FiO2 10/17/16 17:26 68 18 101/55 97 Nasal Cannula 2 10/17/16 16:02 97 Nasal Cannula 2 10/17/16 16:01 58 18 101/57 95 Nasal Cannula 2 10/17/16 15:19 97 Nasal Cannula 2 10/17/16 14:44 98.2 72 16 134/62 96 Physical Exam GENERAL: Lethargic, comfortable. SKIN: Warm and dry. HEAD: Atraumatic. Normocephalic. EYES: Pupils equal and round. No scleral icterus. No injection or drainage. ENT: No nasal bleeding or discharge. Mucous membranes pink and moist. NECK: Trachea midline. No JVD. CARDIOVASCULAR: Regular rate and rhythm. No murmur appreciated. RESPIRATORY: Some coarse breathing with upper airway congestion. GASTROINTESTINAL: Abdomen is obese and soft. Nontender to palpation. MUSCULOSKELETAL: No obvious deformities. No edema. NEUROLOGICAL: Awake and lethargic. He'll answer some questions although speech is very slow to understand. He'll follow some commands. He moves all 4 extremities. He denies numbness or tingling. It looks like he has a little bit of left-sided facial droop and flattening of the nasolabial fold. PSYCH: Flattened affect. Laboratory Laboratory Tests Test 10/17/16 10/17/16 10/17/16 10/17/16 15:00 15:29 15:42 16:09 White Blood Count 12.5 Red Blood Count 5.11 Hemoglobin 15.6 Bedside Hemoglobin 17.0 Hematocrit 46.5 Bedside Hematocrit 50.0 Mean Corpuscular Volume 90.9 Mean Corpuscular Hemoglobin 30.6 Mean Corpuscular Hemoglobin 33.6 Concent Red Cell Distribution Width 14.1 Platelet Count 224 Mean Platelet Volume 9.3 Neutrophils (%) (Auto) 68.6 Lymphocytes (%) (Auto) 22.4 Monocytes (%) (Auto) 8.2 Eosinophils (%) (Auto) 0.2 Basophils (%) (Auto) 0.6 Neutrophils # (Auto) 8.5 Lymphocytes # (Auto) 2.8 Monocytes # (Auto) 1.0 Eosinophils # (Auto) 0.0 Basophils # (Auto) 0.1 CBC Comment DIFF FINAL Differential Comment Prothrombin Time 10.8 Prothromb Time International 1.0 Ratio Activated Partial 25.5 Thromboplast Time Fibrinogen 308 Bedside Sodium 143 Bedside Potassium 3.4 Bedside Chloride 105 Bedside Blood Urea Nitrogen 10 Bedside Creatinine 1.0 Bedside Glucose 101 Total Creatine Kinase 948 Creatine Kinase MB 23.7 Creatine Kinase MB % 2.5 Troponin I 0.02 Phenytoin (Dilantin) Level 1.3 Ethyl Alcohol Level LESS THAN 3 Blood Type B POSITIVE Antibody Screen NEGATIVE Blood Bank Comment Blood Gas Puncture Site LT RADIAL Blood Gas Patient Temperature 98.6 Blood Gas HCO3 25 Blood Gas Base Excess 1.2 Blood Gas Oxygen Saturation 96 Arterial Blood pH 7.44 Arterial Blood Partial 37 Pressure CO2 Arterial Blood Partial 126 Pressure O2 Arterial Blood Oxygen Content 21.2 Arterial Blood 2.0 Carboxyhemoglobin Arterial Blood Methemoglobin 0.7 Blood Gas Hemoglobin 15.6 Oxygen Delivery Device NASAL CANNULA Blood Gas Liter Flow 2 Urine Opiates Screen NEG Urine Barbiturates Screen NEG Urine Amphetamines Screen NEG Urine Benzodiazepines Screen POS Urine Cocaine Screen NEG Urine Cannabinoids Screen POS Urine Color YELLOW Urine Turbidity CLEAR Urine pH 6.5 Urine Specific [place] 1.028 Urine Protein 100 Urine Glucose (UA) NEG Urine Ketones 40 Urine Occult Blood TRACE Urine Nitrite NEG Urine Bilirubin NEG Urine Urobilinogen LESS THAN 2.0 Urine Leukocyte Esterase NEG Urine RBC 2 Urine WBC 1 Urine Squamous Epithelial 2 Cells Urine Hyaline Casts 4 Urine Mucus FEW Microscopic Urinalysis Comment Result Diagram: 10/17/16 1500 Imaging Last Impressions Head CT 10/17/16 0000 Signed Impressions: Service Date/Time: Monday, October 17, 2016 15:02 - CONCLUSION: Unremarkable noncontrast head CT. Hunter Sanches MD Chest X-Ray 10/17/16 0000 Signed Impressions: Service Date/Time: Monday, October 17, 2016 15:53 - CONCLUSION: No acute disease. Hunter Sanches MD Assessment and Plan Assessment and Plan Seizure disorder The patient is on Dilantin as an outpatient and his Dilantin level was low at 1.3. He was loaded with Keppra and fosphenytoin in the emergency department. He was recently admitted to the hospital for seizure. Neurology was contacted by the emergency department physician as the patient presented as a stroke alert. Head CT and CXR unremarkable. - Follow up with neurology. - Continue phenytoin. - Make the patient nothing by mouth as he is lethargic. Swallow eval is pending. - IV fluids. - PT/ OT. - EEG and MRI requested. - Ativan as needed. - Seizure precautions, neuro checks. - blood cultures x 2. Rhabdomyolysis CPK 948, likely secondary to seizure. - IV fluids. - Follow CPK. Leukocytosis Likely reactive, s/t seizure. CXR and UA unremarkable. - trend. Alcohol abuse The patient has a history of alcohol abuse. Possibly contributing to seizures. - CIWA protocol. - Cessation instruction. Dyspnea S/t seizure. CXR unremarkable. - oxygen and nebs as needed. Hypertension The patient has a history of poorly controlled blood pressure, however his blood pressure is currently low which is likely secondary to medications he received for the seizure. - Hold antihypertensives for now and monitor. - Vasotec as needed. PPx: SCDs. Code Status Full Discussed Condition With Pt, pt's family, Dr. Toro. Physician Certification 2 Midnight Certification Type: Admission for Inpatient Services Order for Inpatient Services The services are ordered in accordance with Medicare regulations or non- Medicare payer requirements, as applicable. In the case of services not specified as inpatient-only, they are appropriately provided as inpatient services in accordance with the 2-midnight benchmark. Estimated LOS (days): 2 days is the estimated time the patient will need to remain in the hospital, assuming treatment plan goals are met and no additional complications. Post-Hospital Plan: Not yet determined Sayess,Jan. DO Oct 17, 2016 18:26
[2016-10-17] MEDS: SODIUM CHLOR 0.45% 1000 ML INJ 1,000 ML IV SCH (18:29)
[2016-10-17] MEDS ORDERED: POTASSIUM CHLOR 20 MEQ PREMIX 100 ML IV ONE (18:30)
[2016-10-17] MEDS ORDERED: FLUMAZENIL 0.5 MG/5 ML VIAL IV PUSH PRN (18:30)
[2016-10-17] MEDS ORDERED: LORazepam 2 MG TAB PO PRN (18:30)
[2016-10-17] MEDS ORDERED: LORazepam 1 MG TAB PO PRN (18:30)
[2016-10-17] MEDS ORDERED: ENALAPRILAT 1.25 MG/ML VIAL IV PUSH PRN (18:45)
--- NOTE | 2016-10-17 19:42 | RADRPT ---
EXAM DATE/TIME: 10/17/2016 19:12 [facility] COMPARISON: CT BRAIN W/O CONTRAST, October 17, 2016, 15:02. INDICATIONS : Seizures. MEDICAL HISTORY : Seizures. SURGICAL HISTORY : Orthopaedic surgeries. ENCOUNTER: Initial ACUITY: 1 day PAIN SCORE: 0/10 LOCATION: cranial TECHNIQUE: Multiplanar, multisequence MRI of the brain was performed without contrast. FINDINGS: CEREBRUM: The ventricles are normal for age. No evidence of midline shift, mass lesion, hemorrhage or acute in farction. No extraaxial fluid collections are seen. The pituitary gland and suprasellar cistern are normal in configuration. WHITE MATTER: On the flair weighted images there are multiple tiny scattered punctate areas of increased signal in the white matter bilaterally. POSTERIOR FOSSA: The cerebellum and brainstem are intact. The 4th ventricle is midline. The cerebellopontine angle is unremarkable. The cerebellar tonsils are normal in position. DIFFUSION IMAGING: No focal areas of restricted diffusion are seen. No evidence of acute infarction. EXTRACRANIAL: The visualized portions of the orbits and paranasal sinuses are unremarkable. CONCLUSION: 1. No acute hemorrhage, mass or evidence of infarction. 2. Tiny scattered punctate foci of increased signal in the white matter on the flair weighted images which are nonspecific but likely represent mild chronic small vessel ischemic change. Hunter Sanches MD on October 17, 2016 at 19:35 Board Certified Radiologist. This report was verified electronically.
[2016-10-17] MEDS ORDERED: PHENYTOIN SODIUM 100 MG CAP PO SCH (21:00)
[2016-10-17] MEDS: SODIUM CHLORIDE 0.9% FLUSH 5 ML FLUSH FLUSH SCH (21:00)
--- NOTE | 2016-10-17 21:17 | MB ---
cc: ESTHELA MELÉNDEZ MD DATE OF CONSULTATION 10/17/16 REASON FOR CONSULTATION Stroke alert/questionable seizure and altered mental status HISTORY OF PRESENT ILLNESS Mr. Santiago is a 30 year old -[place] male with past medical history of seizure disorder who presented to the hospital as a stroke alert following a seizure. The patient was lethargic seen by the emergency room and assessed for possible stroke. The family noticed that in the back-seat he was twitching and not feeling well and afterwards he was not able to communicate with them. It was felt that he may be having a seizure, but they think that this is a different situation because the seizures are usually generalized convulsions. The patient is on Dilantin. They are not certain about the dose, but they report that he takes all his medication. He thinks that he was not acting or talking normally recently. An urgent head CT scan was negative for an acute abnormality. The patient was not deemed a candidate for IV TPA because of seizure at presentation and NIH stroke scale was low. PAST MEDICAL HISTORY 1. Seizures, 2. Hypertension 3. Questionable enlarged chart. REVIEW OF SYSTEMS A 12-point review of systems is negative except for what is stated in the HPI. SOCIAL HISTORY Smokes and he uses alcohol. Denies illicit drugs. ALLERGIES No known allergies. MEDICATIONS 1. Clonazepam. 3. Dilantin 100 mg twice daily. FAMILY HISTORY Noncontributory PHYSICAL EXAMINATION GENERAL: Overweight, awake, alert with mild slurring of speech, questionable baseline. HEENT: Atraumatic, normocephalic. Intact vision, intact hearing. NECK: No signs of meningeal irritation. No carotid bruit. CARDIOVASCULAR: Regular rate and rhythm. RESPIRATORY: Upper airway harsh vesicular breathing and tachypnea MUSCULOSKELETAL: No obvious deformity. No edema. NEUROLOGIC: Awake, alert, oriented time, person and place. Mild slurred speech, questionable baseline. Cranial nerves II-XII are grossly intact. Upper and lower extremities 5/5. No abnormal movement, [id number], [id number] normal. Reflexes are 2+, normal throughout. Plantars are bilaterally downgoing. Sensation is intact bilateral. LABORATORY DATA White blood cells 12.5, hemoglobin 15.6, platelets 224. Dilantin level was subtherapeutic at 1.3. UDS positive for benzos and cannabinoids, potassium 3.4, sodium 143, CK 948, CK-MB 23.7, Coags - PT 10.8, INR one. IMAGING STUDIES - Head CT scan with no acute intracranial abnormality. -Brain MRI without contrast revealed no acute hemorrhage, mass or evidence of infarction, tiny scattered punctate foci of increased signal and white matter on the FLAIR weighted images which are nonspecific but likely represent mild chronic small vessel ischemic changes. IMPRESSION 1. Breakthrough seizures 2. Seizure disorder/epilepsy 3. Hypertension. - Questionable adherence to medication given the low subtherapeutic level of Dilantin. PLAN 1. Neuro checks q. four hourly. 2. Dilantin loading dose 3. Dilantin 100 mg three times daily 4. EEG 5. Seizure precautions 6. Ativan 1 mg for seizures lasting more than 3 minutes. Thank you for the opportunity to participate in the care of your patient. MD YUNG Grullon/ /8:37 PM /9:01 PM MAYELIN
[2016-10-17] MEDS: clonazePAM 1 MG TAB PO SCH (21:54)
[2016-10-17] MEDS: PHENYTOIN SODIUM 100 MG CAP PO SCH (21:54)
[2016-10-17] MEDS: ACETAMINOPHEN 325 MG TAB PO PRN (22:01)
[2016-10-18] VITALS (7 sets, daily range): BP systolic 106–146; BP diastolic 57–86; PULSE 56–76; RESP 17–20; TEMP 96.5–98.6; O2SAT 98–100
[2016-10-18] MEDS ORDERED: KETOROLAC TROMETHAMINE 30 MG/ML (IVP) VIAL IV PUSH ONE (00:30)
[2016-10-18 01:43] LABS: ALT (GPT) 36 U/L (12-78); ANION GAP 10 MEQ/L (5-15); AST (GOT) 28 U/L (15-37); BICARBONATE 23.9 MEQ/L (21.0-32.0); BLOOD UREA NITROGEN 8 MG/DL (7-18); CHLORIDE 110 MEQ/L (98-107); GLOMERULAR FILTRATION RATE 40 ML/MIN (>89); POTASSIUM 3.7 MEQ/L (3.5-5.1); SODIUM (NA) 144 MEQ/L (136-145)
[2016-10-18 01:45] LABS: ALKALINE PHOSPHATASE 71 U/L (45-117); CREATINE KINASE 823 U/L (39-308); TOTAL BILIRUBIN ADULT 0.3 MG/DL (0.2-1.0)
[2016-10-18 02:03] LABS: CKMB 17.3 NG/ML (0.5-3.6)
[2016-10-18] MEDS: SODIUM CHLOR 0.45% 1000 ML INJ 1,000 ML IV SCH ×2 (04:14→08:55)
[2016-10-18] MEDS: PHENYTOIN SODIUM 100 MG CAP PO SCH ×3 (06:00→22:00)
[2016-10-18] MEDS: ACETAMINOPHEN 325 MG TAB PO PRN (06:02)
[2016-10-18] MEDS: SODIUM CHLORIDE 0.9% FLUSH 5 ML FLUSH FLUSH SCH ×2 (08:49→20:17)
[2016-10-18] MEDS: clonazePAM 1 MG TAB PO SCH ×2 (08:54→20:16)
[2016-10-18 09:23] LABS: AUTOMATED NEUTROPHIL # 7.1 TH/MM3 (1.8-7.7); BASOPHIL # 0.2 TH/MM3 (0-0.2); BASOPHIL % 1.6 % (0.0-2.0); EOSINOPHIL % 0.4 % (0.0-4.0); HEMATOCRIT 44.9 % (39.0-51.0); HEMO FLAGS DIFF FINAL; LYMPH % 24.8 % (9.0-44.0); LYMPHOCYTE # 2.7 TH/MM3 (1.0-4.8); MEAN CORPUSCULAR HEMOGLOBIN 30.6 PG (27.0-34.0); MONO % 7.6 % (0.0-8.0); NEUT % 65.6 % (16.0-70.0); PLATELET COUNT 192 TH/MM3 (150-450); RED BLOOD COUNT 4.99 MIL/MM3 (4.50-5.90); RED CELL DISTRIBUTION WIDTH 14.3 % (11.6-17.2); WHITE BLOOD COUNT 10.8 TH/MM3 (4.0-11.0)
[2016-10-18] MEDS ORDERED: LORazepam 2 MG/ML VIAL IV PUSH PRN (10:00)
[2016-10-18 10:03] LABS: ANION GAP 10 MEQ/L (5-15)
[2016-10-18 10:08] LABS: ALKALINE PHOSPHATASE 67 U/L (45-117); ALT (GPT) 35 U/L (12-78); AST (GOT) 42 U/L (15-37); BICARBONATE 19.9 MEQ/L (21.0-32.0); BLOOD UREA NITROGEN 8 MG/DL (7-18); CHLORIDE 110 MEQ/L (98-107); CREATINE KINASE 847 U/L (39-308); GLOMERULAR FILTRATION RATE 45 ML/MIN (>89); SODIUM (NA) 140 MEQ/L (136-145); TOTAL BILIRUBIN ADULT 0.3 MG/DL (0.2-1.0)
--- NOTE | 2016-10-18 13:22 | HHI.PR ---
Review/Management Diagnosis Breakthrough seizures Baseline cognitive abnormality Non-adherence to AED HTN Plan Neurochecks Q4h Dilantin 100mg tid Dilantin level next am Loaded with Dilantin 1 gm iv Seizure precautions Diagnosis/Plan: Subjective Subjective Comments Patient is not back to base line as per his mother Dilantin level is still subtherapeutic 7.9 Non-compliance to AED Active Medications Current Medications Medications (Trade) Dose Ordered Sig/Chito Route Start Time Stop Time Status Last Admin (KlonoPIN) 2 mg BID PO 10/17/16 21:00 10/18/16 08:54 (NS Flush) 2 ml UNSCH PRN FLUSH 10/17/16 18:15 (NS Flush) 2 ml BID FLUSH 10/17/16 21:00 (Tylenol) 650 mg Q4H PRN PO 10/17/16 18:15 (Zofran Inj) 4 mg Q6H PRN IVP 10/17/16 18:15 (Tylenol) 650 mg Q6H PRN PO 10/17/16 18:15 10/18/16 06:02 (Narcan Inj) 0.4 mg UNSCH PRN IV 10/17/16 18:15 (Romazicon Inj) 0.2 mg Q1M PRN IV PUSH 10/17/16 18:30 (Ativan) 1 mg Q4H PRN PO 10/17/16 18:30 (Ativan Inj) 1 mg Q4H PRN IV PUSH 10/17/16 18:30 (Ativan) 2 mg Q2H PRN PO 10/17/16 18:30 (Ativan Inj) 2 mg Q2H PRN IV PUSH 10/17/16 18:30 (Ativan Inj) 2 mg Q1H PRN IV PUSH 10/17/16 18:30 (Ativan Inj) 2 mg Q15M PRN IV PUSH 10/17/16 18:30 (Vasotec Inj) 1.25 mg Q6H PRN IV PUSH 10/17/16 18:45 (Dilantin) 100 mg Q8HR PO 10/17/16 22:00 10/18/16 06:00 (Ativan Inj) 1 mg Q2H PRN IV PUSH 10/18/16 10:00 Allergies Allergies Coded Allergies No Known Allergies (Unverified09/26/16) Exam I&O / VS 10/17/16 10/17/16 10/18/16 15:00 23:00 07:00 Intake Total 480 ml Output Total 650 ml Balance -170 ml Intake Oral 480 ml Output Urine Total 650 ml Vital Signs Date Time Temp Pulse Resp B/P Pulse Ox O2 Delivery O2 Flow Rate FiO2 10/18/16 12:09 97.7 58 19 139/79 100 10/18/16 09:34 56 10/18/16 08:00 97.7 58 17 119/68 98 10/18/16 04:55 96.5 59 20 146/80 100 10/18/16 00:45 96.8 74 18 106/57 98 10/17/16 23:30 70 10/17/16 21:01 99 Nasal Cannula 2.00 10/17/16 21:00 96.4 76 20 118/72 99 10/17/16 20:46 72 18 121/62 99 Nasal Cannula 2 10/17/16 18:32 60 18 120/56 97 Nasal Cannula 2 10/17/16 17:26 68 18 101/55 97 Nasal Cannula 2 10/17/16 16:02 97 Nasal Cannula 2 10/17/16 16:01 58 18 101/57 95 Nasal Cannula 2 10/17/16 15:19 97 Nasal Cannula 2 10/17/16 14:44 98.2 72 16 134/62 96 General: Alert and Oriented, No acute distress Eye: PERRL, EOMI, Vision unchanged Respiratory: Lungs CTA, Non-labored respirations Cardiology: Normal rate, No murmur Musculoskeletal: ROM, Tenderness Neurologic: Alert, Oriented, Normal sensory, Normal motor, No focal defects, CN II-XII intact, Normal DTR's Psychiatric: Cooperative, Appropriate mood & affect Objective Radiology Results Last [address] 10/17/16 0000 Signed Impressions: Service Date/Time: Monday, October 17, 2016 15:02 - CONCLUSION: Unremarkable noncontrast head CT. Hunter Sanches MD Chest X-Ray 10/17/16 0000 Signed Impressions: Service Date/Time: Monday, October 17, 2016 15:53 - CONCLUSION: No acute disease. Hunter Sanches MD Brain MRI 10/17/16 0000 Signed Impressions: Service Date/Time: Monday, October 17, 2016 19:12 - CONCLUSION: 1. No acute hemorrhage, mass or evidence of infarction. 2. Tiny scattered punctate foci of increased signal in the white matter on the flair weighted images which are nonspecific but likely represent mild chronic small vessel ischemic change. Hunter Sanches MD Micro and Labs Laboratory Tests Test 10/17/16 10/17/16 10/17/16 10/17/16 15:00 15:29 15:42 16:09 White Blood Count 12.5 Red Blood Count 5.11 Hemoglobin 15.6 Bedside Hemoglobin 17.0 Hematocrit 46.5 Bedside Hematocrit 50.0 Mean Corpuscular Volume 90.9 Mean Corpuscular Hemoglobin 30.6 Mean Corpuscular Hemoglobin 33.6 Concent Red Cell Distribution Width 14.1 Platelet Count 224 Mean Platelet Volume 9.3 Neutrophils (%) (Auto) 68.6 Lymphocytes (%) (Auto) 22.4 Monocytes (%) (Auto) 8.2 Eosinophils (%) (Auto) 0.2 Basophils (%) (Auto) 0.6 Neutrophils # (Auto) 8.5 Lymphocytes # (Auto) 2.8 Monocytes # (Auto) 1.0 Eosinophils # (Auto) 0.0 Basophils # (Auto) 0.1 CBC Comment DIFF FINAL Differential Comment Prothrombin Time 10.8 Prothromb Time International 1.0 Ratio Activated Partial 25.5 Thromboplast Time Fibrinogen 308 Bedside Sodium 143 Bedside Potassium 3.4 Bedside Chloride 105 Bedside Blood Urea Nitrogen 10 Bedside Creatinine 1.0 Bedside Glucose 101 Total Creatine Kinase 948 Creatine Kinase MB 23.7 Creatine Kinase MB % 2.5 Troponin I 0.02 Phenytoin (Dilantin) Level 1.3 Ethyl Alcohol Level LESS THAN 3 Blood Type B POSITIVE Antibody Screen NEGATIVE Blood Bank Comment Blood Gas Puncture Site LT RADIAL Blood Gas Patient Temperature 98.6 Blood Gas HCO3 25 Blood Gas Base Excess 1.2 Blood Gas Oxygen Saturation 96 Arterial Blood pH 7.44 Arterial Blood Partial 37 Pressure CO2 Arterial Blood Partial 126 Pressure O2 Arterial Blood Oxygen Content 21.2 Arterial Blood 2.0 Carboxyhemoglobin Arterial Blood Methemoglobin 0.7 Blood Gas Hemoglobin 15.6 Oxygen Delivery Device NASAL CANNULA Blood Gas Liter Flow 2 Urine Opiates Screen NEG Urine Barbiturates Screen NEG Urine Amphetamines Screen NEG Urine Benzodiazepines Screen POS Urine Cocaine Screen NEG Urine Cannabinoids Screen POS Urine Color YELLOW Urine Turbidity CLEAR Urine pH 6.5 Urine Specific Klemme 1.028 Urine Protein 100 Urine Glucose (UA) NEG Urine Ketones 40 Urine Occult Blood TRACE Urine Nitrite NEG Urine Bilirubin NEG Urine Urobilinogen LESS THAN 2.0 Urine Leukocyte Esterase NEG Urine RBC 2 Urine WBC 1 Urine Squamous Epithelial 2 Cells Urine Hyaline Casts 4 Urine Mucus FEW Microscopic Urinalysis Comment Test 10/18/16 10/18/16 01:15 08:28 Sodium Level 144 140 Potassium Level 3.7 5.0 Chloride Level 110 110 Carbon Dioxide Level 23.9 19.9 Anion Gap 10 10 Blood Urea Nitrogen 8 8 Creatinine 2.31 2.09 Estimat Glomerular Filtration 40 45 Rate Random Glucose 86 71 Lactic Acid Level 2.3 Calcium Level 8.8 8.6 Total Bilirubin 0.3 0.3 Aspartate Amino Transf 28 42 (AST/SGOT) Alanine Aminotransferase 36 35 (ALT/SGPT) Alkaline Phosphatase 71 67 Total Creatine Kinase 823 847 Creatine Kinase MB 17.3 15.0 Creatine Kinase MB % 2.1 1.8 Total Protein 8.0 7.7 Albumin 4.5 3.8 White Blood Count 10.8 Red Blood Count 4.99 Hemoglobin 15.3 Hematocrit 44.9 Mean Corpuscular Volume 90.0 Mean Corpuscular Hemoglobin 30.6 Mean Corpuscular Hemoglobin 34.0 Concent Red Cell Distribution Width 14.3 Platelet Count 192 Mean Platelet Volume 9.5 Neutrophils (%) (Auto) 65.6 Lymphocytes (%) (Auto) 24.8 Monocytes (%) (Auto) 7.6 Eosinophils (%) (Auto) 0.4 Basophils (%) (Auto) 1.6 Neutrophils # (Auto) 7.1 Lymphocytes # (Auto) 2.7 Monocytes # (Auto) 0.8 Eosinophils # (Auto) 0.0 Basophils # (Auto) 0.2 CBC Comment DIFF FINAL Differential Comment Troponin I LESS THAN 0.02 Phenytoin (Dilantin) Level 7.9 Date/Time Procedure Status Source Growth 10/18/16 08:28 Aerobic Blood Culture Received Blood Peripheral Pending 10/18/16 08:28 Anaerobic Blood Culture Received Blood Peripheral Pending Dustin Haro MD Oct 18, 2016 13:21
[2016-10-18] MEDS ORDERED: PHENYTOIN INJ 1,000 MG in SODIUM CHLORIDE 0.9% INJ 100 ML IV ONE (14:00)
[2016-10-18] MEDS: DEXT 5%-NACL 0.45% 1000 ML INJ 1,000 ML IV SCH ×2 (15:00→23:33)
[2016-10-18 16:12] LABS: BICARBONATE 22.3 MEQ/L (21.0-32.0)
[2016-10-18 16:13] LABS: POTASSIUM 3.9 MEQ/L (3.5-5.1)
--- NOTE | 2016-10-18 16:13 | HHI.PR ---
Subjective Remarks The patient was sitting in a wheelchair at the nursing station. He stated that he felt well and wanted to go home. He said he wasn't taking his Dilantin the way he would but he would start doing that. He started crying when he was told he couldn't go home today. He said he wanted to smoke and drink. Discussed with nursing. Objective Vitals Vital Signs Date Time Temp Pulse Resp B/P Pulse Ox O2 Delivery O2 Flow Rate FiO2 10/18/16 12:09 97.7 58 19 139/79 100 10/18/16 09:34 56 10/18/16 08:00 97.7 58 17 119/68 98 10/18/16 04:55 96.5 59 20 146/80 100 10/18/16 00:45 96.8 74 18 106/57 98 10/17/16 23:30 70 10/17/16 21:01 99 Nasal Cannula 2.00 10/17/16 21:00 96.4 76 20 118/72 99 10/17/16 20:46 72 18 121/62 99 Nasal Cannula 2 10/17/16 18:32 60 18 120/56 97 Nasal Cannula 2 10/17/16 17:26 68 18 101/55 97 Nasal Cannula 2 I/O 10/17/16 10/17/16 10/17/16 10/18/16 10/18/16 10/18/16 07:00 15:00 23:00 07:00 15:00 23:00 Intake Total 480 ml Output Total 650 ml 600 ml Balance -170 ml -600 ml Intake Oral 480 ml Output Urine Total 650 ml 600 ml Result Diagram: 10/18/1628 10/18/16827 Imaging Last Impressions Head CT 10/17/16 0000 Signed Impressions: Service Date/Time: Monday, October 17, 2016 15:02 - CONCLUSION: Unremarkable noncontrast head CT. Hunter Sanches MD Chest X-Ray 10/17/16 0000 Signed Impressions: Service Date/Time: Monday, October 17, 2016 15:53 - CONCLUSION: No acute disease. Hunter Sanches MD Brain MRI 10/17/16 0000 Signed Impressions: Service Date/Time: Monday, October 17, 2016 19:12 - CONCLUSION: 1. No acute hemorrhage, mass or evidence of infarction. 2. Tiny scattered punctate foci of increased signal in the white matter on the flair weighted images which are nonspecific but likely represent mild chronic small vessel ischemic change. Hunter Sanches MD Objective Remarks GENERAL: Resting comfortably. SKIN: Warm and dry. HEAD: Atraumatic. Normocephalic. EYES: Pupils equal and round. No scleral icterus. No injection or drainage. ENT: No nasal bleeding or discharge. Mucous membranes pink and moist. NECK: Trachea midline. No JVD. CARDIOVASCULAR: Regular rate and rhythm. No murmur appreciated. RESPIRATORY: CTAB. No W/R/R. GASTROINTESTINAL: Abdomen is obese and soft. Nontender to palpation. MUSCULOSKELETAL: No obvious deformities. No edema. NEUROLOGICAL: Awake and alert. Normal speech. Motor strength equal in the upper and lower extremities. PSYCH: Labile mood, teary-eyed. Medications and IVs Current Medications Medications (Trade) Dose Ordered Sig/Chito Route Start Time Stop Time Status Last Admin (KlonoPIN) 2 mg BID PO 10/17/16 21:00 10/18/16 08:54 (NS Flush) 2 ml UNSCH PRN FLUSH 10/17/16 18:15 (NS Flush) 2 ml BID FLUSH 10/17/16 21:00 (Tylenol) 650 mg Q4H PRN PO 10/17/16 18:15 (Zofran Inj) 4 mg Q6H PRN IVP 10/17/16 18:15 (Tylenol) 650 mg Q6H PRN PO 10/17/16 18:15 10/18/16 06:02 (Narcan Inj) 0.4 mg UNSCH PRN IV 10/17/16 18:15 (Romazicon Inj) 0.2 mg Q1M PRN IV PUSH 10/17/16 18:30 (Ativan) 1 mg Q4H PRN PO 10/17/16 18:30 (Ativan Inj) 1 mg Q4H PRN IV PUSH 10/17/16 18:30 (Ativan) 2 mg Q2H PRN PO 10/17/16 18:30 (Ativan Inj) 2 mg Q2H PRN IV PUSH 10/17/16 18:30 (Ativan Inj) 2 mg Q1H PRN IV PUSH 10/17/16 18:30 (Ativan Inj) 2 mg Q15M PRN IV PUSH 10/17/16 18:30 (Vasotec Inj) 1.25 mg Q6H PRN IV PUSH 10/17/16 18:45 (Dilantin) 100 mg Q8HR PO 10/17/16 22:00 10/18/16 14:59 Lorazepam 1 mg 1 mg Q2H PRN IV PUSH 10/18/16 10:00 (D5W-1/2 NS 1000 ml Inj) 1,000 ml @ 100 mls/hr Q10H IV 10/18/16 15:00 10/19/16 10:59 10/18/16 15:00 (Habitrol 21 Mg Patch.24 Hr) 1 patch DAILY TD 10/18/16 16:15 UNV (Roxicodone) 5 mg Q4H PRN PO 10/18/16 16:15 UNV A/P Assessment and Plan Seizure disorder The patient is on Dilantin as an outpatient and his Dilantin level was low at 1.3. The pt says he has been noncompliant. He was loaded with Keppra and fosphenytoin in the emergency department. He was recently admitted to the hospital for seizure. Neurology was contacted by the emergency department physician as the patient presented as a stroke alert. Head CT and CXR unremarkable. Brain MRI showed: No acute hemorrhage, mass or evidence of infarction; Tiny scattered punctate foci of increased signal in the white matter on the flair weighted images which are nonspecific but likely represent mild chronic small vessel ischemic change. The pt received an additional Dilantin load 10/18. - Follow up with neurology. - Continue phenytoin. Check level in AM. - cognitive eval per speech therapy. - IV fluids. - PT/ OT/ST. - EEG pending. - Ativan as needed. - Seizure precautions, neuro checks. - blood cultures x 2. NGTD. Rhabdomyolysis/ Acute on chronic renal failure CPK 948, likely secondary to seizure. - continue IV fluids. - Follow CPK. - nephrology consult if no improvement. Leukocytosis Likely reactive, s/t seizure. CXR and UA unremarkable. - trend. Improved. Alcohol and nicotine abuse The patient has a history of alcohol abuse. Possibly contributing to seizures. He also smokes. - [facility] protocol. - Cessation instruction. - nicotine patch. Hypertension The patient has a history of poorly controlled blood pressure, however his blood pressure is normal at this time off of meds. - Hold antihypertensives for now and monitor. - Vasotec as needed. PPx: SCDs. Discharge Planning Awaiting clinical improvement. Hunter Bryant DO Oct 18, 2016 16:13
[2016-10-18 16:30] LABS: CKMB 12.2 NG/ML (0.5-3.6)
[2016-10-18] MEDS: NICOTINE 21 MG/24 HR PATCH TD SCH (16:40)
--- NOTE | 2016-10-18 18:48 | RADRPT ---
EXAM DATE/TIME: 10/18/2016 17:11 [place] COMPARISON: No previous studies available for comparison. INDICATIONS : Increased BUN and Creatinine. MEDICAL HISTORY : Hypertension. Gastroesophageal reflux disease. Seizures. Syncope. Headaches. SURGICAL HISTORY : Bilateral knee replacements. Right shoulder replacement. ENCOUNTER: Initial ACUITY: 1 day PAIN SCORE: 8/10 LOCATION: Bilateral flank MEASUREMENTS: RIGHT KIDNEY: 11.6 x 5.7 x 5.9 cm LEFT KIDNEY: 10.3 x 6.4 x 6.8 cm FINDINGS: RIGHT KIDNEY: Renal cortex is normal in thickness and echotexture. No hydronephrosis or stone. There is mild promi nence on the lateral margin of the central kidney with no abnormal color flow or definite mass. This is consistent with dromedary hump.. LEFT KIDNEY: Renal cortex is normal in thickness and echotexture. No hydronephrosis, stone, or mass. BLADDER: Within normal limits given the degree of distension. CONCLUSION: No evidence of hydronephrosis. Hunter Sanches MD on October 18, 2016 at 18:44 Board Certified Radiologist. This report was verified electronically.
--- NOTE | 2016-10-18 20:09 | MG ---
cc: NURYS SR Lab No: Date: 10/18/2016 Age: Sex: M Race: EEG NUMBER [id number] INDICATION A 31-year-old man, some twitching, unable to answer questions. Left-sided facial droop, enlarged heart. MEDICATIONS 1. Toradol. 2. Dilantin. DESCRIPTION Diffuse alpha and beta rhythms are noted. The recording overall is synchronous and symmetric. I see no hemisphere asymmetries. An EKG artifact is noted. Photic stimulation was performed without significant posterior driving. Hyperventilation was attempted but it was abbreviated as the patient did not feel well, without any change in the background. IMPRESSION This is normal awake EEG. No evidence for a focal or diffuse abnormality. MD YESSI Jim/KK /7:53 PM /8:05 PM
[2016-10-18] MEDS: REMOVE OLD NICODERM (NICOTINE) PATCH TD SCH (20:17)
[2016-10-19] VITALS: BP 133/61; PULSE 87; RESP 18; TEMP 99.1; O2SAT 97
[2016-10-19 04:00] VITALS: BP 127/66; PULSE 81; RESP 18; TEMP 97.1; O2SAT 100
[2016-10-19] MEDS: PHENYTOIN SODIUM 100 MG CAP PO SCH ×3 (04:54→20:51)
[2016-10-19 07:50] VITALS: BP 127/71; PULSE 67; RESP 18; TEMP 97.5; O2SAT 100
[2016-10-19 08:20] LABS: BICARBONATE 25.6 MEQ/L (21.0-32.0); MAGNESIUM 2.1 MG/DL (1.5-2.5)
[2016-10-19 08:36] LABS: POTASSIUM 3.8 MEQ/L (3.5-5.1)
[2016-10-19] MEDS: SODIUM CHLORIDE 0.9% FLUSH 5 ML FLUSH FLUSH SCH ×2 (09:00→20:52)
[2016-10-19] MEDS: NICOTINE 21 MG/24 HR PATCH TD SCH (10:16)
[2016-10-19] MEDS: clonazePAM 1 MG TAB PO SCH ×2 (10:16→20:51)
[2016-10-19 11:05] VITALS: BP 140/79; PULSE 74; RESP 18; TEMP 98.4; O2SAT 100
[2016-10-19 11:21] LABS: CKMB 6.8 NG/ML (0.5-3.6)
[2016-10-19] MEDS ORDERED: DEXT 5%-NACL 0.45% 1000 ML INJ 1,000 ML IV SCH (12:00)
--- NOTE | 2016-10-19 12:34 | HHI.PR ---
Subjective Remarks The patient insists on leaving the hospital. He said that he wants to go back to [place]. He said his pain was controlled. He seemed to understand that he came to the hospital for seizures and knows that leaving without taking her medications appropriately could lead to further seizures. He also understands that he has kidney issues and further workup is recommended. I did discuss with his mother and other family members who stated that the patient is mentally challenged and is possibly trying to leave the hospital AGAINST MEDICAL ADVICE and does not take care of himself once he is discharged. Objective Vitals Vital Signs Date Time Temp Pulse Resp B/P Pulse Ox O2 Delivery O2 Flow Rate FiO2 10/19/16 07:50 97.5 67 18 127/71 100 10/19/16 04:00 97.1 81 18 127/66 100 10/19/16 00:00 99.1 87 18 133/61 97 10/18/16 23:11 18 10/18/16 20:00 98.0 70 18 142/72 100 10/18/16 16:00 98.6 76 19 142/86 98 I/O 10/18/16 10/18/16 10/18/16 10/19/16 10/19/16 10/19/16 07:00 15:00 23:00 07:00 15:00 23:00 Intake Total 480 ml 480 ml 480 ml Output Total 650 ml 600 ml Balance -170 ml -600 ml 480 ml 480 ml Intake Oral 480 ml 480 ml 480 ml Output Urine Total 650 ml 600 ml # Voids 1 2 # Bowel Movements 0 1 Result Diagram: 10/18/16 0828 10/19/16 0650 Imaging Last Impressions Renal Ultrasound 10/18/16 0000 Signed Impressions: Service Date/Time: Tuesday, October 18, 2016 17:11 - CONCLUSION: No evidence of hydronephrosis. Hunter Sanches MD Head CT 10/17/16 0000 Signed Impressions: Service Date/Time: Monday, October 17, 2016 15:02 - CONCLUSION: Unremarkable noncontrast head CT. Hunter Sanches MD Chest X-Ray 10/17/16 0000 Signed Impressions: Service Date/Time: Monday, October 17, 2016 15:53 - CONCLUSION: No acute disease. Hunter Sanches MD Brain MRI 10/17/16 0000 Signed Impressions: Service Date/Time: Monday, October 17, 2016 19:12 - CONCLUSION: 1. No acute hemorrhage, mass or evidence of infarction. 2. Tiny scattered punctate foci of increased signal in the white matter on the flair weighted images which are nonspecific but likely represent mild chronic small vessel ischemic change. Hunter Sanches MD Objective Remarks GENERAL: Resting comfortably. SKIN: Warm and dry. HEAD: Atraumatic. Normocephalic. EYES: Pupils equal and round. No scleral icterus. No injection or drainage. ENT: No nasal bleeding or discharge. Mucous membranes pink and moist. NECK: Trachea midline. No JVD. CARDIOVASCULAR: Regular rate and rhythm. No murmur appreciated. RESPIRATORY: CTAB. No W/R/R. GASTROINTESTINAL: Abdomen is obese and soft. Nontender to palpation. MUSCULOSKELETAL: No obvious deformities. No edema. NEUROLOGICAL: Awake and alert. Normal speech. Motor strength equal in the upper and lower extremities. PSYCH: Labile mood. Medications and IVs Current Medications Medications (Trade) Dose Ordered Sig/Chito Route Start Time Stop Time Status Last Admin (KlonoPIN) 2 mg BID PO 10/17/16 21:00 10/19/16 10:16 (NS Flush) 2 ml UNSCH PRN FLUSH 10/17/16 18:15 (NS Flush) 2 ml BID FLUSH 10/17/16 21:00 (Tylenol) 650 mg Q4H PRN PO 10/17/16 18:15 (Zofran Inj) 4 mg Q6H PRN IVP 10/17/16 18:15 10/19/16 01:05 (Tylenol) 650 mg Q6H PRN PO 10/17/16 18:15 10/18/16 06:02 (Narcan Inj) 0.4 mg UNSCH PRN IV 10/17/16 18:15 (Romazicon Inj) 0.2 mg Q1M PRN IV PUSH 10/17/16 18:30 (Ativan) 1 mg Q4H PRN PO 10/17/16 18:30 (Ativan Inj) 1 mg Q4H PRN IV PUSH 10/17/16 18:30 (Ativan) 2 mg Q2H PRN PO 10/17/16 18:30 (Ativan Inj) 2 mg Q2H PRN IV PUSH 10/17/16 18:30 (Ativan Inj) 2 mg Q1H PRN IV PUSH 10/17/16 18:30 (Ativan Inj) 2 mg Q15M PRN IV PUSH 10/17/16 18:30 (Vasotec Inj) 1.25 mg Q6H PRN IV PUSH 10/17/16 18:45 (Dilantin) 100 mg Q8HR PO 10/17/16 22:00 10/19/16 04:54 (Ativan Inj) 1 mg Q2H PRN IV PUSH 10/18/16 10:00 (Habitrol 21 Mg Patch.24 Hr) 1 patch DAILY TD 10/18/16 16:15 10/19/16 10:16 (Roxicodone) 5 mg Q4H PRN PO 10/18/16 16:15 10/19/16 10:47 Miscellaneous Information 1 1 HS TD 10/18/16 21:00 10/18/16 20:17 (D5W-1/2 NS 1000 ml Inj) 1,000 ml @ 150 mls/hr Q6H40M IV 10/19/16 12:00 10/20/16 01:19 UNV A/P Assessment and Plan Seizure disorder The patient is on Dilantin as an outpatient and his Dilantin level was low at 1.3. The pt says he has been noncompliant. He was loaded with Keppra and fosphenytoin in the emergency department. He was recently admitted to the hospital for seizure. Neurology was contacted by the emergency department physician as the patient presented as a stroke alert. Head CT and CXR unremarkable. Brain MRI showed: No acute hemorrhage, mass or evidence of infarction; Tiny scattered punctate foci of increased signal in the white matter on the flair weighted images which are nonspecific but likely represent mild chronic small vessel ischemic change. The pt received an additional Dilantin load 10/18. Dilantin levels are therapeutic 10/19. EEG within normal limits. - Follow up with neurology. - Continue phenytoin. - cognitive eval per speech therapy. - IV fluids. - PT/OT/ST. - Ativan as needed. - Seizure precautions, neuro checks. - blood cultures x 2. NGTD. Rhabdomyolysis/ Acute on chronic renal failure CPK 948, likely secondary to seizure. Renal ultrasound with no acute disease. - continue IV fluids. - Follow CPK. - nephrology consult if no improvement with fluids. - Check urine sodium and creatinine. Cardiomyopathy The patient has a history of some sort of a heart problem that he was supposed to get further evaluation for in [place] but never did. Per his mother he had a problem with fluid on the lungs recently. - Echo pending. - DC fluids if any evidence of respiratory distress. - Resume Lopressor. Leukocytosis Likely reactive, s/t seizure. CXR and UA unremarkable. - trend. Improved. Alcohol and nicotine abuse The patient has a history of alcohol abuse. Possibly contributing to seizures. He also smokes. - [facility] protocol. - Cessation instruction. - nicotine patch. Hypertension The patient has a history of poorly controlled blood pressure, however his blood pressure is normal at this time off of meds. - resume Lopressor and hold other antihypertensives for now and monitor. - Vasotec as needed. Mental status The pt's family states the pt is mentally challenged and that he does not understand his medical conditions. They also mention that he has been talking to himself and acting erratically. - the pt may not leave AMA. - psych consult for labile mood and erratic behavior. PPx: SCDs. Discharge Planning Awaiting clinical improvement. The pt may not leave AMA. Hunter Bryant DO Oct 19, 2016 12:34
[2016-10-19] MEDS: METOPROLOL TARTRATE 50 MG TAB PO SCH ×2 (14:02→20:51)
[2016-10-19 15:30] VITALS: BP 148/83; PULSE 65; RESP 18; TEMP 99.3; O2SAT 100
--- NOTE | 2016-10-19 15:44 | EC ---
Study Study Date:10/19/2016 STUDY CONCLUSIONS SUMMARY LEFT VENTRICLE: The cavity size was normal. Wall thickness was normal. Systolic function was normal. The estimated ejection fraction was in the range of 55% to 60%. Wall motion was normal; there were no regional wall motion abnormalities. Impressions: Normal study. If LV function is below 40, please consider prescribing an ACEI or ARB or document rationale for non-use. PROCEDURE DATA STUDY STATUS: Elective. Procedure: Transthoracic echocardiography. Image quality was good. Scanning was performed from the parasternal, apical, and subcostal acoustic windows. Study completion: The patient tolerated the procedure well. Transthoracic echocardiography. M-mode, complete 2D, complete spectral Doppler, and color Doppler. Patient status: Inpatient. CARDIAC ANATOMY LEFT VENTRICLE: The cavity size was normal. Wall thickness was normal. Systolic function was normal. The estimated ejection fraction was in the range of 55% to 60%. Wall motion was normal; there were no regional wall motion abnormalities. AORTIC VALVE: Trileaflet; normal thickness leaflets. Doppler: Transvalvular velocity was within the normal range. There was no stenosis. No regurgitation. Peak gradient: 10mm Hg (S). AORTA: Aortic root: The aortic root was normal in size. MITRAL VALVE: Structurally normal valve. Doppler: Transvalvular velocity was within the normal range. There was no evidence for stenosis. No regurgitation. Peak gradient: 3mm Hg (D). LEFT ATRIUM: The atrium was normal in size. RIGHT VENTRICLE: The cavity size was normal. Wall thickness was normal. PULMONIC VALVE: Doppler: Transvalvular velocity was within the normal range. There was no evidence for stenosis. No regurgitation. TRICUSPID VALVE: Structurally normal valve. Doppler: Transvalvular velocity was within the normal range. No regurgitation. PULMONARY ARTERY: The main pulmonary artery was normal-sized. Systolic pressure was within the normal range. RIGHT ATRIUM: The atrium was normal in size. PERICARDIUM: There was no pericardial effusion. SYSTEMIC VEINS: Inferior vena cava: The vessel was normal in size. BASIC MEASUREMENTS ADULT NORMAL Left ventricle LV internal dimension, ED, chordal level, 49 mm 43-52 PLAX LV internal dimension, ES, chordal level, 36.1 mm 23-38 PLAX Fractional shortening, chordal level, PLAX *26 % >29 LV posterior wall thickness, ED 10.4 mm IVS/LVPW ratio, ED *1.7 <1.3 Ventricular septum Septal thickness, ED 17.7 mm Aortic valve Leaflet separation 24 mm 15-26 Left atrium Anterior-posterior dimension 40 mm Right ventricle RV internal dimension, ED, PLAX 22.6 mm 19-38 BASIC MEASUREMENTS ADULT NORMAL Aortic valve Leaflet separation 24 mm 15-26 Aorta Root diameter, ED 33 mm 20-37 DOPPLER MEASUREMENTS ADULT NORMAL Main pulmonary artery Pressure, S 13 mm Hg =30 Aortic valve Peak velocity, S 159 cm/s Peak gradient, S 10 mm Hg Mitral valve Peak E-wave velocity 91.3 cm/s Peak A-wave velocity 60.7 cm/s Peak gradient, D 3 mm Hg Peak E/A ratio 1.5 Tricuspid valve Regurgitant peak velocity 138 cm/s Peak RV-RA gradient, S 8 mm Hg Maximal regurgitant velocity 138 cm/s Systemic veins Estimated CVP 5 mm Hg Right ventricle RV pressure, S 13 mm Hg <30 LEGEND: Mean values are shown as u=mean value. Asterisk (*) soria values outside specified normal range. Amended Kane Addison [id number]
[2016-10-19] MEDS: DEXT 5%-NACL 0.45% 1000 ML INJ 1,000 ML IV SCH ×2 (17:09→18:40)
[2016-10-19 20:00] VITALS: BP 135/89; PULSE 71; PULSE 77; RESP 18; TEMP 97.3; O2SAT 99
[2016-10-19] MEDS: REMOVE OLD NICODERM (NICOTINE) PATCH TD SCH (20:52)
--- NOTE | 2016-10-19 20:52 | HHI.PR ---
Review/Management Diagnosis Breakthrough seizures Baseline cognitive abnormality Non-adherence to AED HTN Plan Neurochecks Q4h Dilantin 100mg tid Stable from neurology stand point Follow up with outpatient neurology in two weeks Seizure precautions Diagnosis/Plan: Subjective Subjective Comments No reported seizures Improved and stable neurologic exam Dilantin level is therapeutic EEG with no ictal activity Active Medications Current Medications Medications (Trade) Dose Ordered Sig/Chito Route Start Time Stop Time Status Last Admin (KlonoPIN) 2 mg BID PO 10/17/16 21:00 10/19/16 10:16 (NS Flush) 2 ml UNSCH PRN FLUSH 10/17/16 18:15 (NS Flush) 2 ml BID FLUSH 10/17/16 21:00 (Tylenol) 650 mg Q4H PRN PO 10/17/16 18:15 (Zofran Inj) 4 mg Q6H PRN IVP 10/17/16 18:15 10/19/16 01:05 (Tylenol) 650 mg Q6H PRN PO 10/17/16 18:15 10/18/16 06:02 (Narcan Inj) 0.4 mg UNSCH PRN IV 10/17/16 18:15 (Romazicon Inj) 0.2 mg Q1M PRN IV PUSH 10/17/16 18:30 (Ativan) 1 mg Q4H PRN PO 10/17/16 18:30 10/19/16 13:25 (Ativan Inj) 1 mg Q4H PRN IV PUSH 10/17/16 18:30 (Ativan) 2 mg Q2H PRN PO 10/17/16 18:30 (Ativan Inj) 2 mg Q2H PRN IV PUSH 10/17/16 18:30 (Ativan Inj) 2 mg Q1H PRN IV PUSH 10/17/16 18:30 (Ativan Inj) 2 mg Q15M PRN IV PUSH 10/17/16 18:30 (Vasotec Inj) 1.25 mg Q6H PRN IV PUSH 10/17/16 18:45 (Dilantin) 100 mg Q8HR PO 10/17/16 22:00 10/19/16 14:02 (Ativan Inj) 1 mg Q2H PRN IV PUSH 10/18/16 10:00 (Habitrol 21 Mg Patch.24 Hr) 1 patch DAILY TD 10/18/16 16:15 3/20/17 10:16 (Roxicodone) 5 mg Q4H PRN PO 10/18/16 16:15 10/19/16 15:33 Miscellaneous Information 1 1 HS TD 10/18/16 21:00 10/18/16 20:17 (D5W-1/2 NS 1000 ml Inj) 1,000 ml @ 150 mls/hr Q6H40M IV 10/19/16 12:00 10/19/16 17:09 (Lopressor) 50 mg BID PO 10/19/16 13:00 10/19/16 14:02 Allergies Allergies Coded Allergies No Known Allergies (Unverified09/26/16) Exam I&O / VS 10/18/16 10/18/16 10/19/16 15:00 23:00 07:00 Intake Total 480 ml 480 ml Output Total 600 ml Balance -600 ml 480 ml 480 ml Intake Oral 480 ml 480 ml Output Urine Total 600 ml # Voids 1 2 # Bowel Movements 0 1 Vital Signs Date Time Temp Pulse Resp B/P Pulse Ox O2 Delivery O2 Flow Rate FiO2 10/19/16 20:00 97.3 71 18 135/89 99 10/19/16 16:33 20 10/19/16 15:30 99.3 65 18 148/83 100 10/19/16 11:05 98.4 74 18 140/79 100 10/19/16 07:50 97.5 67 18 127/71 100 10/19/16 04:00 97.1 81 18 127/66 100 10/19/16 00:00 99.1 87 18 133/61 97 General: Alert and Oriented, No acute distress Eye: PERRL, EOMI, Vision unchanged Respiratory: Lungs CTA, Non-labored respirations Cardiology: Normal rate, No murmur Musculoskeletal: ROM, Tenderness Neurologic: Alert, Oriented, Normal sensory, Normal motor, No focal defects, CN II-XII intact, Normal DTR's Psychiatric: Cooperative, Appropriate mood & affect Objective Radiology Results Last 72 hours Impressions Renal Ultrasound 10/18/16 0000 Signed Impressions: Service Date/Time: Tuesday, October 18, 2016 17:11 - CONCLUSION: No evidence of hydronephrosis. Hunter Sanches MD Head CT 10/17/16 0000 Signed Impressions: Service Date/Time: Monday, October 17, 2016 15:02 - CONCLUSION: Unremarkable noncontrast head CT. Hunter Sanches MD Chest X-Ray 10/17/16 0000 Signed Impressions: Service Date/Time: Monday, October 17, 2016 15:53 - CONCLUSION: No acute disease. Hunter Sanches MD Brain MRI 10/17/16 0000 Signed Impressions: Service Date/Time: Monday, October 17, 2016 19:12 - CONCLUSION: 1. No acute hemorrhage, mass or evidence of infarction. 2. Tiny scattered punctate foci of increased signal in the white matter on the flair weighted images which are nonspecific but likely represent mild chronic small vessel ischemic change. Hunter Sanches MD Micro and Labs Laboratory Tests Test 10/19/16 06:50 Sodium Level 143 Potassium Level 3.8 Chloride Level 108 Carbon Dioxide Level 25.6 Anion Gap 9 Blood Urea Nitrogen 5 Creatinine 1.91 Estimat Glomerular Filtration 50 Rate Random Glucose 77 Calcium Level 8.7 Magnesium Level 2.1 Total Creatine Kinase 570 Creatine Kinase MB 6.8 Creatine Kinase MB % 1.2 Phenytoin (Dilantin) Level 14.4 Date/Time Procedure Status Source Growth 10/18/16 08:28 Aerobic Blood Culture - Preliminary Resulted Blood Peripheral NO GROWTH IN 1 DAY 10/18/16 08:28 Anaerobic Blood Culture - Final Resulted Blood Peripheral QNS - SEE AEROBE REPORT Dusitn Haro MD Oct 19, 2016 20:52
[2016-10-20] VITALS: BP 127/72; PULSE 63; RESP 20; TEMP 96.3; O2SAT 99
[2016-10-20] MEDS: DEXT 5%-NACL 0.45% 1000 ML INJ 1,000 ML IV SCH ×3 (00:38→14:06)
[2016-10-20 04:00] VITALS: BP 114/72; PULSE 61; RESP 20; TEMP 97.4; O2SAT 99
[2016-10-20] MEDS: PHENYTOIN SODIUM 100 MG CAP PO SCH ×2 (05:30→14:01)
[2016-10-20] MEDS: clonazePAM 1 MG TAB PO SCH (07:52)
[2016-10-20] MEDS: METOPROLOL TARTRATE 50 MG TAB PO SCH (07:52)
[2016-10-20] MEDS: NICOTINE 21 MG/24 HR PATCH TD SCH (07:53)
[2016-10-20 08:00] VITALS: BP 134/79; PULSE 68; RESP 20; TEMP 98.3; O2SAT 98
[2016-10-20] MEDS: SODIUM CHLORIDE 0.9% FLUSH 5 ML FLUSH FLUSH SCH (08:42)
--- NOTE | 2016-10-20 09:33 | PD.CONS ---
Provisional Diagnosis Admission Date Oct 17, 2016 at 16:35 Mallard I. Post ictal psychosis Mallard II. Deferred Mallard III. Seizures, hypertension Mallard IV. Noncompliant with antiepileptic medication Mallard V. 55 History of Present Illness Service Psychiatry Consult Requested By Primary Care Physician No Primary Care Physician HPI The patient is a 31-year-old and, domicile with his grandmother, unemployed, disabled, with psychiatric history of ADHD, no previous psychotic hospitalizations, he is not having any active psychiatric outpatient care, no previous suicidal attempts, medical history of seizure disorder and hypertension who was admitted in the hospital due to breakthrough seizures, altered mental status, post ictal psychosis, and rhabdomyolysis. Patient was consulted to psychiatry to rule out potential psychiatric causes of psychosis. On psychiatric evaluation patient was found his bed eating his breakfast, calm, cooperative and pleasant. Patient explained that he came to the hospital because he was having seizures. He does not have a lot of recollection about the circumstances of this episode. However, at this moment the patient seems to be oriented 3, with a conserved recent and immediate recall, good memory, no problems with language, calculation, executive function and attention. Patient reports good mood, he denies depressive symptoms, denies anxiety, denies psychosis, no manic symptoms observed. He is logical, coherent and relevant. No agitation or aggressive behavior is observed or reported by nursing charge, was actually described the patient as a person who has been easy to deal with, at least in her shift. Denies the use of illicit drugs, he reports occasional use of alcohol. Review of Systems Constitutional: DENIES: Diaphoretic episodes, Fatigue, Fever, Weight gain, Weight loss, Chills, Dizziness, Change in appetite, Night Sweats Endocrine: DENIES: Heat/cold intolerance, Polydipsia, Polyuria, Polyphagia Eyes: DENIES: Blurred vision, Diplopia, Eye inflammation, Eye pain, Vision loss , Photosensitivity, Double Vision Ears, nose, mouth, throat: DENIES: Tinnitus, Hearing loss, Vertigo, Nasal discharge, Oral lesions, Throat pain, Hoarseness, Ear Pain, Running Nose, Epistaxis, Sinus Pain, Toothache, Odynophagia Respiratory: DENIES: Apneas, Cough, Snoring, Wheezing, Hemoptysis, Sputum production, Shortness of breath Cardiovascular: DENIES: Chest pain, Palpitations, Syncope, Dyspnea on Exertion , PND, Lower Extremity Edema, Orthopnea, Claudication Genitourinary: DENIES: Sexual dysfunction, Urinary frequency, Urinary incontinence, Urgency, Hematuria, Dysuria, Nocturia, Penile Discharge, Testicular Pain, Testicular Swelling Musculoskeletal: COMPLAINS OF: Back pain, Neck pain, DENIES: Joint pain, Muscle aches, Stiffness, Joint Swelling Hematologic/lymphatic: DENIES: Bruising, Lymphadenopathy Immunologic/allergic: DENIES: Eczema, Urticaria Neurologic: COMPLAINS OF: Seizures, DENIES: Abnormal gait, Headache, Localized weakness, Paresthesias, Speech Problems, Tremor, Poor Balance Psychiatric: DENIES: Anxiety, Confusion, Mood changes, Depression, Hallucinations, Agitation, Suicidal Ideation, Homicidal Ideation, Delusions Past Family Social History Coded Allergies: No Known Allergies (Unverified , 09/26/16) Active Scripts Clonazepam 2 Mg Tab2 Mg PO BID #40 TAB Ref 0 Prov:Hu Vegas MD 10/07/16 Phenytoin Extended (Dilantin)100 Mg [id number] Mg PO BID #90 CAP Ref 0 Prov:Hu Vegas MD 10/07/16 Thiamine (Vitamin B-1)100 Mg [id number] Mg PO DAILY #30 TAB Prov:Hu Vegas MD 10/07/16 Metoprolol Tartrate (Lopressor)50 Mg Tab50 Mg PO BID #60 TAB Prov:Hu Vegas MD 10/07/16 Losartan (Cozaar)50 Mg Tab50 Mg PO DAILY #30 TAB Prov:Hu Vegas MD 10/07/16 Reported Medications Hydrocodone-Acetaminophen (Lortab)7.5-325 Mg Tab1 Tab PO Q6H PRN (PAIN) Ref 0 10/17/16 Clonidine 0.2 Mg Tab0.2 Mg PO BID #60 TAB Ref 0 10/17/16 Amlodipine 10 Mg Tab10 Mg PO DAILY #30 TAB Ref 0 10/05/16 Discontinued Reported Medications Clonidine 0.3 Mg Tab0.3 Mg PO BID #60 TAB Ref 0 09/26/16 Current Medications Medications (Trade) Dose Ordered Sig/Chito Route Start Time Stop Time Status Last Admin (KlonoPIN) 2 mg BID PO 10/17/16 21:00 10/20/16 07:52 (NS Flush) 2 ml UNSCH PRN FLUSH 10/17/16 18:15 (NS Flush) 2 ml BID FLUSH 10/17/16 21:00 (Tylenol) 650 mg Q4H PRN PO 10/17/16 18:15 (Zofran Inj) 4 mg Q6H PRN IVP 10/17/16 18:15 10/19/16 01:05 (Tylenol) 650 mg Q6H PRN PO 10/17/16 18:15 10/18/16 06:02 (Narcan Inj) 0.4 mg UNSCH PRN IV 10/17/16 18:15 (Romazicon Inj) 0.2 mg Q1M PRN IV PUSH 10/17/16 18:30 (Ativan) 1 mg Q4H PRN PO 10/17/16 18:30 10/19/16 13:25 (Ativan Inj) 1 mg Q4H PRN IV PUSH 10/17/16 18:30 (Ativan) 2 mg Q2H PRN PO 10/17/16 18:30 (Ativan Inj) 2 mg Q2H PRN IV PUSH 10/17/16 18:30 (Ativan Inj) 2 mg Q1H PRN IV PUSH 10/17/16 18:30 (Ativan Inj) 2 mg Q15M PRN IV PUSH 10/17/16 18:30 (Vasotec Inj) 1.25 mg Q6H PRN IV PUSH 10/17/16 18:45 (Dilantin) 100 mg Q8HR PO 10/17/16 22:00 10/20/16 05:30 (Ativan Inj) 1 mg Q2H PRN IV PUSH 10/18/16 10:00 (Habitrol 21 Mg Patch.24 Hr) 1 patch DAILY TD 10/18/16 16:15 10/20/16 07:53 (Roxicodone) 5 mg Q4H PRN PO 10/18/16 16:15 10/20/16 05:34 Miscellaneous Information 1 1 HS TD 10/18/16 21:00 10/18/16 20:17 (D5W-1/2 NS 1000 ml Inj) 1,000 ml @ 150 mls/hr Q6H40M IV 10/19/16 12:00 10/20/16 00:38 (Lopressor) 50 mg BID PO 10/19/16 13:00 10/20/16 07:52 Family History Patient denies Social History Patient was born and raised in [place], he lives with his grandmother, is unemployed, supported by [facility] [employer], highest level of education is GED Physical Exam Vital Signs Vital Signs Date Time Temp Pulse Resp B/P Pulse Ox O2 Delivery O2 Flow Rate FiO2 10/20/16 08:00 98.3 68 20 134/79 98 10/17/16 21:01 Nasal Cannula 2.00 I/O 10/19/16 10/19/16 10/20/16 08:00 16:00 00:00 Intake Total 480 ml 2280 ml Output Total 0 ml Balance 480 ml 2280 ml Mental Status Examination Appearance man, in [facility], good hygiene, he is calm and cooperative and pleasant Orientation: x3 Memory: Unremarkable Thought Process: Logical Thought Content: Unremarkable Hallucination Type: None Suicidal Ideation: No Previous Suicide Attempts: No Homicidal Ideation: No Previous Homicide Attempts: No Judgement: WNL Affect: Good Mood: Appropriate Motor Activity: Normal gait Assessment & Plan Problem List: (1) Post-ictal confusion Assessment & Plan: On psychiatric evaluation today patient does not present any acute, concerning or significant evidence of objective or subjective symptomatology of depression, aissatou, psychosis or anxiety. Patient is fully oriented 3, no attention deficit, no fluctuation of consciousness, or memory deficits are observed or reported. No agitation or aggressive behavior are present. The patient does not need any immediate psychiatric intervention, he does not meet criteria for psychiatric admission. There is no indication to restart any psychotropic. Recent episode of confusion/psychosis was most probably the result of a postictal state secondary to seizure activity in the context of poor compliance with his antiepileptic medications. Extensive support and psychoeducation provided. Consult appreciated. ICD Code: F05 Assessment & Plan Estimated LOS: Rigoberto Downs MD Oct 20, 2016 09:33
[2016-10-20 10:44] LABS: BICARBONATE 26.1 MEQ/L (21.0-32.0); MAGNESIUM 1.9 MG/DL (1.5-2.5)
[2016-10-20 11:23] LABS: CKMB 2.5 NG/ML (0.5-3.6)
[2016-10-20 11:28] LABS: POTASSIUM 3.8 MEQ/L (3.5-5.1)
[2016-10-20 12:00] VITALS: BP 121/83; PULSE 52; RESP 20; TEMP 98.6; O2SAT 100
[2016-10-20 15:39] VITALS: RESP 18
[2016-10-20] MEDS ORDERED: DILA100C PO (17:04)
[2016-10-20] MEDS ORDERED: CLON0.1T PO (17:23)
[2016-10-20] MEDS ORDERED: HYDR-3534 PO (17:23)
--- NOTE | 2016-10-20 17:25 | HHI.DS ---
Discharge Summary Admission Date Oct 17, 2016 at 16:35 Discharge Date: Oct 20, 2016 Admitting Diagnosis altered mental status, seizures (1) Post-ictal confusion ICD Code: F05 (2) Altered mental status ICD Code: R41.82 (3) Seizures ICD Code: R56.9 Procedures None none Brief History - From Admission The patient is a 31-year-old male with past medical history of seizure disorder who is presenting to the hospital following a seizure. The patient was lethargic secondary to medications he received so history was limited. The patient's family noticed that he has been having difficulty talking and has been acting confused. They also noticed he has been twitching. The patient's family mentions that he appears to have been having seizures while sleeping overnight. The patient was initially called in as a stroke alert and neurology was called and recommended treatment for seizure at this time. The patient was loaded with Keppra and phenytoin. The patient was recently admitted to the hospital for another seizure and was discharged after a couple of days. The patient is now lethargic and able to communicate but he mumbles and closes his eyes frequently. He does seem to indicate left-sided chest pain. He is unable to elaborate further on it but he does point to his chest. He says he does not feel weak anywhere and denies any numbness or tingling sensations. CBC/BMP: 10/18/16 0828 10/20/16 0945 Significant Findings Laboratory Tests Test 10/18/16 10/18/16 10/18/16 10/19/16 01:15 08:28 15:18 06:50 Chloride Level 110 MEQ/L 110 MEQ/L 109 MEQ/L 108 MEQ/L (98-107) (98-107) (98-107) (98-107) Creatinine 2.31 MG/DL 2.09 MG/DL 1.97 MG/DL 1.91 MG/DL (0.60-1.30) (0.60-1.30) (0.60-1.30) (0.60-1.30) Estimat Glomerular Filtration 40 ML/MIN (>89) 45 ML/MIN (>89) 48 ML/MIN (>89) 50 ML/MIN (>89) Rate Lactic Acid Level 2.3 mmol/L (0.4-2.0) Total Creatine Kinase 823 U/L 847 U/L 736 U/L 570 U/L (39-308) (39-308) (39-308) (39-308) Creatine Kinase MB 17.3 NG/ML 15.0 NG/ML 12.2 NG/ML 6.8 NG/ML (0.5-3.6) (0.5-3.6) (0.5-3.6) (0.5-3.6) Carbon Dioxide Level 19.9 MEQ/L (21.0-32.0) Random Glucose 71 MG/DL (74-106) Aspartate Amino Transf 42 U/L (15-37) (AST/SGOT) Troponin I LESS THAN 0.02 NG/ML (0.02-0.05) Phenytoin (Dilantin) Level 7.9 MCG/ML (10.0-20.0) Blood Urea Nitrogen 5 MG/DL (7-18) Test 10/20/16 09:45 Chloride Level 109 MEQ/L (98-107) Blood Urea Nitrogen 5 MG/DL (7-18) Creatinine 1.54 MG/DL (0.60-1.30) Estimat Glomerular Filtration 64 ML/MIN (>89) Rate Random Glucose 109 MG/DL (74-106) Total Creatine Kinase 326 U/L (39-308) Imaging Last Impressions Renal Ultrasound 10/18/16 0000 Signed Impressions: Service Date/Time: Tuesday, October 18, 2016 17:11 - CONCLUSION: No evidence of hydronephrosis. Hunter Sanches MD Head CT 10/17/16 0000 Signed Impressions: Service Date/Time: Monday, October 17, 2016 15:02 - CONCLUSION: Unremarkable noncontrast head CT. Hunter Sanches MD Chest X-Ray 10/17/16 0000 Signed Impressions: Service Date/Time: Monday, October 17, 2016 15:53 - CONCLUSION: No acute disease. Hunter Sanches MD Brain MRI 10/17/16 0000 Signed Impressions: Service Date/Time: Monday, October 17, 2016 19:12 - CONCLUSION: 1. No acute hemorrhage, mass or evidence of infarction. 2. Tiny scattered punctate foci of increased signal in the white matter on the flair weighted images which are nonspecific but likely represent mild chronic small vessel ischemic change. Hunter Sanches MD PE at Discharge GENERAL: Resting comfortably. SKIN: Warm and dry. HEAD: Atraumatic. Normocephalic. EYES: Pupils equal and round. No scleral icterus. No injection or drainage. ENT: No nasal bleeding or discharge. Mucous membranes pink and moist. NECK: Trachea midline. No JVD. CARDIOVASCULAR: Regular rate and rhythm. No murmur appreciated. RESPIRATORY: CTAB. No W/R/R. GASTROINTESTINAL: Abdomen is obese and soft. Nontender to palpation. MUSCULOSKELETAL: No obvious deformities. No edema. NEUROLOGICAL: Awake and alert. Normal speech. Motor strength equal in the upper and lower extremities. PSYCH: Calm and cooperative. Alert and oriented. Hospital Course The patient was admitted to the hospital, neurology was consulted. The patient had no further seizures. The patient still complains of generalized soreness. MRI showed no acute findings, did show mild chronic small vessel ischemic change. Dilantin levels were brought to therapeutic. There is some question if he had been taking the Dilantin as the levels were subtherapeutic on admission. I've discussed this with his mother who is now in town. She states she will ensure that the patient takes his medication. He was treated with IV fluids for the rhabdomyolysis which resolved. The patient had some acute kidney injury with creatinine 2.3 on admission and has come down to 1.5 today. Total CK 326. The patient at this time does not have a local primary care physician however his mothers taking him back to [place] in several weeks for PCP appointment there. The patient did have altered mental status and the patient's family states that he is mentally challenged. Psychiatry was consulted and noted that he did not meet criteria for psychiatric hospitalization. The patient has been calm and cooperative with nursing staff here. The patient's mother tells me today that he normally does behave very well and listen to her. The patient also has high blood pressure at home however his blood pressure has been normal here only on metoprolol. Therefore I recommend that he not resume the clonidine were angiotensin receptor thomas. I discussed with his mother that he may use clonidine as needed for blood pressure elevations. Other than that the only medication change is to increase his Dilantin to 3 times a day dosing. I recommend he follow-up with his primary care physician in 2 weeks and discuss with his mother the importance of compliance with his medications. Pt Condition on Discharge: Stable Discharge Disposition: Discharge Home Discharge Time: > 30 minutes Discharge Instructions DIET: Follow Instructions for: As Tolerated, No Restrictions Speech Therapy-Diet Recommends: Regular Activities you can perform: Regular-No Restrictions New Medications: Clonidine (Clonidine) 0.1 Mg Tab 0.1 MG PO TID PRN SYS BP GREATER THAN 160 MMHG #60 Ref 0 TAB Phenytoin Extended (Dilantin) 100 Mg Cap 100 MG PO Q8HR Seizure Control #90 CAP Continued Medications: Clonazepam (Clonazepam) 2 Mg Tab 2 MG PO BID #40 Ref 0 TAB Hydrocodone-Acetaminophen (Lortab) 7.5-325 Mg Tab 1 TAB PO Q6H PRN PAIN #12 Ref 0 TAB (This prescription has been renewed) Metoprolol Tartrate (Lopressor) 50 Mg Tab 50 MG PO BID htn #60 TAB Thiamine (Vitamin B-1) 100 Mg Tab 100 MG PO DAILY htn\ #30 TAB Discontinued Medications: Amlodipine (Amlodipine) 10 Mg Tab 10 MG PO DAILY Blood Pressure Management #30 Ref 0 TAB Clonidine (Clonidine) 0.2 Mg Tab 0.2 MG PO BID Blood Pressure Management #60 Ref 0 TAB Losartan (Cozaar) 50 Mg Tab 50 MG PO DAILY htn #30 TAB Phenytoin Extended (Dilantin) 100 Mg Cap 100 MG PO BID Control Seizures #90 Ref 0 CAP Pao Mariscal MD Oct 20, 2016 17:24
== END 2016-10-20 17:55 | disposition home or self-care (01) | DRG 101 ==
LOC: NEPA 14:43 → NEDA 16:35 → N05B 21:07
PROVIDERS: ADMIT Family Medicine; ATTEND Family Medicine
DX: G40.909 Epilepsy, unspecified, not intractable, without status epilepticus (principal); N17.9 Acute kidney failure, unspecified; I42.9 Cardiomyopathy, unspecified; M62.82 Rhabdomyolysis; Z91.14 Patient's other noncompliance with medication regimen; F79 Unspecified intellectual disabilities; Z72.0 Tobacco use; E66.3 Overweight; Z68.32 Body mass index [BMI] 32.0-32.9, adult; I10 Essential (primary) hypertension
CPT/HCPCS: 36600; 70450; 70551; 71010; 76775; 76937; 80048; 80053; 80185; 80307; 81001; 82435; 82550; 82552; 82565; 82805; 82947; 83605; 83735; 84132; 84295; 84484; 84520; 85025; 85384; 85610; 85730; 86850; 86900; 86901; 87040; 93005; 93306; 95819; 96365; J1165; J1885; J1953; J2060; J2405; J3480; J7030; P9612; Q2009

== ENCOUNTER 2016-11-13 13:39 | Emergency (ER) | payer MEDICAID ==
[~2016-11-13] VITALS: Ht 177.8 cm; Wt 109.0 kg
[~2016-11-13 13:39] MED LIST changes: -AMLO10TA2 PO; +CLON0.1T PO; -CLON0.3T PO; -COZA50TA PO; +HYDR-3534 PO; -KLON2TAB PO; -LOSA25TA PO; -METO25TA3 PO
[2016-11-13 13:40] VITALS: BP 137/79; PULSE 64; RESP 20; TEMP 98.7; O2SAT 100
[2016-11-13] MEDS ORDERED: SODIUM CHLOR 0.9% 1000 ML INJ 1,000 ML IV SCH (16:08)
--- NOTE | 2016-11-13 16:14 | PD ---
HPI Chief Complaint: Complaint Time Seen by Provider: 16:08 Travel History International Travel<30 days: No Contact w/Intl Traveler<30days: No Traveled to known affect area: No History of Present Illness HPI The patient is a 31-year-old [place] male who presents emergency department for 3 days of right flank pain and hematuria. The patient states he recently traveled from [place] to [place] and has been experiencing right flank pain. The patient now complains of nausea, vomiting, and hematuria. The patient is able to urinate, small amounts, with visible blood. The patient does complain of nausea and vomiting secondary to the pain, denies any change in bowel habits. The patient has been eating without difficulty. The patient denies any alleviating or exacerbating factors, states he is unable to get comfortable with the right flank pain. The patient denies any previous history of nephrolithiasis and denies any dysuria, frequency, or urgency. PFSH Past Medical History Anxiety: No Depression: No Cancer: No Cardiomyopathy: Yes Cardiovascular Problems: Yes Chest Pain: Yes Diabetes: No Endocrine: No Gastrointestinal Disorders: Yes GERD: Yes Genitourinary: No Hypertension: Yes Immune Disorder: No Implanted Vascular Access Dvce: Yes Musculoskeletal: No Neurologic: Yes Psychiatric: No Reproductive: No Respiratory: No Seizures: Yes Past Surgical History Joint Replacement: Yes (BILATERAL KNEES, RIGHT SHOULDER) Other Surgery: Yes Social History Alcohol Use: Yes Tobacco Use: Yes (2 cigs/day) Substance Use: No Allergies-Medications (Allergen,Severity, Reaction): Coded Allergies: No Known Allergies (Unverified , 09/26/16) Reported Meds & Prescriptions Reported Meds & Active Scripts Active Clonidine (Clonidine HCl) 0.1 Mg Tab 0.1 Mg PO TID PRN Lortab (Hydrocodone-Acetaminophen) 7.5-325 Mg Tab 1 Tab PO Q6H PRN Dilantin (Phenytoin Extended) 100 Mg Cap 100 Mg PO Q8HR Clonazepam 2 Mg Tab 2 Mg PO BID Vitamin B-1 (Thiamine HCl) 100 Mg Tab 100 Mg PO DAILY Lopressor (Metoprolol Tartrate) 50 Mg Tab 50 Mg PO BID Review of Systems Except as stated in HPI: all other systems reviewed are Neg General / Constitutional: No: Fever Cardiovascular: No: Chest Pain or Discomfort Respiratory: No: Shortness of Breath Gastrointestinal: Positive: Nausea, Vomiting, Abdominal Pain, No: Diarrhea, Changes in Bowel Habits Genitourinary: Positive: Hematuria, Decreased Urinary Output, No: Urgency, Frequency, Dysuria Skin: No Rash Physical Exam Narrative GENERAL: Awake, alert, 31-year-old male who appears his stated age and is in no acute respiratory distress. The patient does appear moderate discomfort. SKIN: Focused skin assessment warm/dry. HEAD: Atraumatic. Normocephalic. EYES: No injection or drainage. ENT: No nasal bleeding or discharge. Mucous membranes pink and moist. NECK: Trachea midline. No JVD. CARDIOVASCULAR: Regular rate and rhythm. No murmur appreciated. RESPIRATORY: No accessory muscle use. Clear to auscultation. Breath sounds equal bilaterally. GASTROINTESTINAL: Abdomen soft, mild right flank tenderness. Back: No CVA tenderness. Genitourinary: Circumcised phallus. Mild tenderness of the left testicle, no tenderness of the right testicle. No significant swelling. MUSCULOSKELETAL: No obvious deformities. No clubbing. No cyanosis. No edema. NEUROLOGICAL: Awake and alert. No obvious cranial nerve deficits. Motor grossly within normal limits. Normal speech. PSYCHIATRIC: Appropriate mood and affect; insight and judgment normal. Data Data Last Documented VS Vital Signs Date Time Temp Pulse Resp B/P Pulse Ox O2 Delivery O2 Flow Rate FiO2 11/13/16 17:30 18 11/13/16 17:07 85 11/13/16 13:40 98.7 137/79 100 Room Air Orders Complete Blood Count With Diff (11/13/16 16:08) Comprehensive Metabolic Panel (11/13/16 16:08) Lipase (11/13/16 16:08) Urinalysis - C+S If Indicated (11/13/16 16:08) Ct Abd/Pel W/O Iv Contrast (11/13/16 16:08) Iv Access Insert/Monitor (11/13/16 16:08) Ecg Monitoring (11/13/16 16:08) Oximetry (11/13/16 16:08) Morphine Inj (Morphine Inj) (11/13/16 16:15) Ondansetron Inj (Zofran Inj) (11/13/16 16:15) Sodium Chlor 0.9% 1000 Ml Inj (Ns 1000 M (11/13/16 16:08) Sodium Chloride 0.9% Flush (Ns Flush) (11/13/16 16:15) Ketorolac Inj (Toradol Inj) (11/13/16 16:15) Phenytoin (Dilantin) (11/13/16 16:20) Us Testicles W Doppler (11/13/16 18:08) Sodium Chloride 0.9% Flush (Ns Flush) (11/13/16 18:15) Hydromorphone Pf Inj (Dilaudid Pf Inj) (11/13/16 18:15) Sodium Chlor 0.9% 1000 Ml Inj (Ns 1000 M (11/13/16 18:15) Labs Laboratory Tests Test 11/13/16 16:20 White Blood Count 10.0 TH/MM3 Red Blood Count 5.32 MIL/MM3 Hemoglobin 16.4 GM/DL Hematocrit 48.6 % Mean Corpuscular Volume 91.4 FL Mean Corpuscular Hemoglobin 30.9 PG Mean Corpuscular Hemoglobin 33.7 % Concent Red Cell Distribution Width 14.5 % Platelet Count 218 TH/MM3 Mean Platelet Volume 9.1 FL Neutrophils (%) (Auto) 63.6 % Lymphocytes (%) (Auto) 29.0 % Monocytes (%) (Auto) 6.5 % Eosinophils (%) (Auto) 0.2 % Basophils (%) (Auto) 0.7 % Neutrophils # (Auto) 6.4 TH/MM3 Lymphocytes # (Auto) 2.9 TH/MM3 Monocytes # (Auto) 0.7 TH/MM3 Eosinophils # (Auto) 0.0 TH/MM3 Basophils # (Auto) 0.1 TH/MM3 CBC Comment DIFF FINAL Differential Comment Urine Color YELLOW Urine Turbidity CLEAR Urine pH 8.0 Urine Specific [place] 1.017 Urine Protein TRACE mg/dL Urine Glucose (UA) NEG mg/dL Urine Ketones 80 mg/dL Urine Occult Blood NEG Urine Nitrite NEG Urine Bilirubin NEG Urine Urobilinogen 2.0 MG/DL Urine Leukocyte Esterase NEG Urine Squamous Epithelial <1 /hpf Cells Urine Hyaline Casts 2 /lpf Urine Mucus FEW /lpf Microscopic Urinalysis Comment CULT NOT INDICATED Sodium Level 142 MEQ/L Potassium Level 3.3 MEQ/L Chloride Level 108 MEQ/L Carbon Dioxide Level 22.8 MEQ/L Anion Gap 11 MEQ/L Blood Urea Nitrogen 5 MG/DL Creatinine 2.34 MG/DL Estimat Glomerular Filtration 40 ML/MIN Rate Random Glucose 82 MG/DL Calcium Level 9.3 MG/DL Total Bilirubin 0.4 MG/DL Aspartate Amino Transf 23 U/L (AST/SGOT) Alanine Aminotransferase 41 U/L (ALT/SGPT) Alkaline Phosphatase 81 U/L Total Protein 8.3 GM/DL Albumin 4.7 GM/DL Lipase 177 U/L Phenytoin (Dilantin) Level 2.9 MCG/ML MDM Medical Decision Making Medical Screen Exam Complete: Yes Emergency Medical Condition: Yes Medical Record Reviewed: Yes Interpretation(s) Last Impressions Abdomen/Pelvis CT 11/13/16 1608 Signed Impressions: Service Date/Time: Sunday, November 13, 2016 16:49 - CONCLUSION: 1. Nonobstructing left renal calculus. 2. No inflammatory changes are seen within the abdomen or pelvis. Aston Whitten MD Laboratory Tests Test 11/13/16 16:20 White Blood Count 10.0 TH/MM3 Red Blood Count 5.32 MIL/MM3 Hemoglobin 16.4 GM/DL Hematocrit 48.6 % Mean Corpuscular Volume 91.4 FL Mean Corpuscular Hemoglobin 30.9 PG Mean Corpuscular Hemoglobin 33.7 % Concent Red Cell Distribution Width 14.5 % Platelet Count 218 TH/MM3 Mean Platelet Volume 9.1 FL Neutrophils (%) (Auto) 63.6 % Lymphocytes (%) (Auto) 29.0 % Monocytes (%) (Auto) 6.5 % Eosinophils (%) (Auto) 0.2 % Basophils (%) (Auto) 0.7 % Neutrophils # (Auto) 6.4 TH/MM3 Lymphocytes # (Auto) 2.9 TH/MM3 Monocytes # (Auto) 0.7 TH/MM3 Eosinophils # (Auto) 0.0 TH/MM3 Basophils # (Auto) 0.1 TH/MM3 CBC Comment DIFF FINAL Differential Comment Urine Color YELLOW Urine Turbidity CLEAR Urine pH 8.0 Urine Specific [place] 1.017 Urine Protein TRACE mg/dL Urine Glucose (UA) NEG mg/dL Urine Ketones 80 mg/dL Urine Occult Blood NEG Urine Nitrite NEG Urine Bilirubin NEG Urine Urobilinogen 2.0 MG/DL Urine Leukocyte Esterase NEG Urine Squamous Epithelial <1 /hpf Cells Urine Hyaline Casts 2 /lpf Urine Mucus FEW /lpf Microscopic Urinalysis Comment CULT NOT INDICATED Sodium Level 142 MEQ/L Potassium Level 3.3 MEQ/L Chloride Level 108 MEQ/L Carbon Dioxide Level 22.8 MEQ/L Anion Gap 11 MEQ/L Blood Urea Nitrogen 5 MG/DL Creatinine 2.34 MG/DL Estimat Glomerular Filtration 40 ML/MIN Rate Random Glucose 82 MG/DL Calcium Level 9.3 MG/DL Total Bilirubin 0.4 MG/DL Aspartate Amino Transf 23 U/L (AST/SGOT) Alanine Aminotransferase 41 U/L (ALT/SGPT) Alkaline Phosphatase 81 U/L Total Protein 8.3 GM/DL Albumin 4.7 GM/DL Lipase 177 U/L Phenytoin (Dilantin) Level 2.9 MCG/ML Differential Diagnosis Differential diagnosis includes nephrolithiasis, hydronephrosis, pyelonephritis , obstructive uropathy, atypical appendicitis, colitis, testicular torsion. Narrative Course IV was established, labs are drawn and sent, and the patient was placed on cardiac telemetry monitoring and continuous pulse oximetry monitoring. Bedside ultrasound was performed to evaluate for obstructive uropathy, the bladder did have fluid, but did not appear overtly distended. The patient was administered Toradol, morphine, Zofran, and IV fluids. Noncontrast CT of the abdomen and pelvis was ordered to evaluate for renal calculi. The patient's white count is unremarkable. UA is positive for 80 of ketones, no evidence of infection. LFTs are unremarkable. Creatinine is mildly elevated at 2.34, reviewed the EMR , he has had elevated creatinine in the past including an admission in September where he was admitted for altered mental status. CT the abdomen and pelvis reveals nonobstructing left renal calculus. No inflammatory changes are seen within the abdomen or pelvis. There is no hydronephrosis or hydroureter. Urinary bladder is unremarkable. The prostate is unremarkable. The liver, pancreas, adrenal glands, gallbladder, spleen, stomach, large bowel, and appendix are unremarkable. No definitive etiology for the patient's pain. However, white count is within normal limits and vitals are unremarkable. The patient was signed out to the oncoming physician at 7 PM with ultrasound of the testicles pending. Diagnosis Primary Impression: Right flank pain Condition: Stable Jaime Finnegan MD Nov 13, 2016 16:14
[2016-11-13] MEDS ORDERED: MORPHINE SULFATE 4 MG/ML INJ IV PUSH ONE (16:15)
[2016-11-13] MEDS ORDERED: SODIUM CHLORIDE 0.9% FLUSH 10 ML FLUSH IV FLUSH PRN (16:15)
[2016-11-13] MEDS ORDERED: ONDANSETRON HCL 4 MG/2 ML VIAL IVP ONE (16:15)
[2016-11-13] MEDS ORDERED: KETOROLAC TROMETHAMINE 30 MG/ML (IVP) VIAL IVP ONE (16:15)
[2016-11-13 16:49] LABS: AUTOMATED NEUTROPHIL # 6.4 TH/MM3 (1.8-7.7); BASOPHIL # 0.1 TH/MM3 (0-0.2); BASOPHIL % 0.7 % (0.0-2.0); EOSINOPHIL % 0.2 % (0.0-4.0); HEMATOCRIT 48.6 % (39.0-51.0); HEMO FLAGS DIFF FINAL; LYMPHOCYTE # 2.9 TH/MM3 (1.0-4.8); MEAN CELL VOLUME 91.4 FL (80.0-100.0); MEAN CORPUSCULAR HEMOGLOBIN 30.9 PG (27.0-34.0); MEAN CORPUSCULAR HGB CONC 33.7 % (32.0-36.0); MONO % 6.5 % (0.0-8.0); NEUT % 63.6 % (16.0-70.0); PLATELET COUNT 218 TH/MM3 (150-450); RED BLOOD COUNT 5.32 MIL/MM3 (4.50-5.90); RED CELL DISTRIBUTION WIDTH 14.5 % (11.6-17.2)
[2016-11-13 17:02] LABS: BLOOD, URINE NEG (NEG); COMMENT (UR) CULT NOT INDICATED; CULTURE IF INDICATED CULT NOT INDICATED; GLUCOSE,URINE NEG (NEG); HYALINE CAST, URINE 2 /lpf (RARE); KETONE, URINE 80 mg/dL (NEG); MUCUS URINE FEW /lpf (OCC); NITRITE,URINE NEG (NEG); SQUAMOUS EPITHELIAL CELL URINE <1 /hpf (0-5); URINE COLOR YELLOW (YELLW/STRAW)
[2016-11-13 17:07] VITALS: PULSE 85; RESP 18
--- NOTE | 2016-11-13 17:16 | RADRPT ---
EXAM DATE/TIME: 11/13/2016 16:49 [facility] COMPARISON: No previous studies available for comparison. INDICATIONS : Calculi, right flank pain. ORAL CONTRAST: No oral contrast ingested. RADIATION DOSE: 29.74 CTDIvol (mGy) MEDICAL HISTORY : Seizures. Hypertension. SURGICAL HISTORY : None. ENCOUNTER: Initial ACUITY: 1 week PAIN SCALE: 9/10 LOCATION: Right flank area. TECHNIQUE: Volumetric scanning of the abdomen and pelvis was performed. Using automated exposure control and ad justment of the mA and/or kV according to patient size, radiation dose was kept as low as reasonably achievable to obtain optimal diagnostic quality images. FINDINGS: Punctate nonobstructing left midpole renal calculus measuring 2.1 mm. There is no hydronephrosis or h ydroureter. Urinary bladder unremarkable. Prostate unremarkable. Liver, pancreas, adrenal glands, gal lbladder, spleen, stomach, large bowel and appendix unremarkable. No adenopathy or aneurysm. Lung bas es are clear. Osseous structures are intact. CONCLUSION: 1. Nonobstructing left renal calculus. 2. No inflammatory changes are seen within the abdomen or pelvis. Aston Whitten MD on November 13, 2016 at 17:12 Board Certified Radiologist. This report was verified electronically.
[2016-11-13 17:17] LABS: ALT (GPT) 41 U/L (12-78); ANION GAP 11 MEQ/L (5-15); AST (GOT) 23 U/L (15-37); BICARBONATE 22.8 MEQ/L (21.0-32.0); BLOOD UREA NITROGEN 5 MG/DL (7-18); CHLORIDE 108 MEQ/L (98-107); GLOMERULAR FILTRATION RATE 40 ML/MIN (>89); POTASSIUM 3.3 MEQ/L (3.5-5.1); SODIUM (NA) 142 MEQ/L (136-145)
[2016-11-13 17:19] LABS: ALKALINE PHOSPHATASE 81 U/L (45-117); TOTAL BILIRUBIN ADULT 0.4 MG/DL (0.2-1.0)
[2016-11-13 17:30] VITALS: RESP 18
[2016-11-13] MEDS ORDERED: HYDROmorphone HCL PF 1 MG/ML VIAL IVS ONE (18:15)
[2016-11-13] MEDS ORDERED: SODIUM CHLOR 0.9% 1000 ML INJ 1,000 ML IV ONE (18:15)
[2016-11-13] MEDS ORDERED: SODIUM CHLORIDE 0.9% FLUSH 10 ML FLUSH IVF PRN (18:15)
--- NOTE | 2016-11-13 19:32 | PD ---
Physical Exam Date Seen by Provider: Nov 13, 2016 Narrative Care was assumed from Dr. Finnegan 7 PM pending his testicular ultrasound. Patient does report that his pain is exacerbated by movement. Data Data Last Documented VS Vital Signs Date Time Temp Pulse Resp B/P Pulse Ox O2 Delivery O2 Flow Rate FiO2 11/13/16 17:30 18 11/13/16 17:07 85 11/13/16 13:40 98.7 137/79 100 Room Air Orders Complete Blood Count With Diff (11/13/16 16:08) Comprehensive Metabolic Panel (11/13/16 16:08) Lipase (11/13/16 16:08) Urinalysis - C+S If Indicated (11/13/16 16:08) Ct Abd/Pel W/O Iv Contrast (11/13/16 16:08) Iv Access Insert/Monitor (11/13/16 16:08) Ecg Monitoring (11/13/16 16:08) Oximetry (11/13/16 16:08) Morphine Inj (Morphine Inj) (11/13/16 16:15) Ondansetron Inj (Zofran Inj) (11/13/16 16:15) Sodium Chlor 0.9% 1000 Ml Inj (Ns 1000 M (11/13/16 16:08) Sodium Chloride 0.9% Flush (Ns Flush) (11/13/16 16:15) Ketorolac Inj (Toradol Inj) (11/13/16 16:15) Phenytoin (Dilantin) (11/13/16 16:20) Us Testicles W Doppler (11/13/16 18:08) Sodium Chloride 0.9% Flush (Ns Flush) (11/13/16 18:15) Hydromorphone Pf Inj (Dilaudid Pf Inj) (11/13/16 18:15) Sodium Chlor 0.9% 1000 Ml Inj (Ns 1000 M (11/13/16 18:15) Labs Laboratory Tests Test 11/13/16 16:20 White Blood Count 10.0 TH/MM3 Red Blood Count 5.32 MIL/MM3 Hemoglobin 16.4 GM/DL Hematocrit 48.6 % Mean Corpuscular Volume 91.4 FL Mean Corpuscular Hemoglobin 30.9 PG Mean Corpuscular Hemoglobin 33.7 % Concent Red Cell Distribution Width 14.5 % Platelet Count 218 TH/MM3 Mean Platelet Volume 9.1 FL Neutrophils (%) (Auto) 63.6 % Lymphocytes (%) (Auto) 29.0 % Monocytes (%) (Auto) 6.5 % Eosinophils (%) (Auto) 0.2 % Basophils (%) (Auto) 0.7 % Neutrophils # (Auto) 6.4 TH/MM3 Lymphocytes # (Auto) 2.9 TH/MM3 Monocytes # (Auto) 0.7 TH/MM3 Eosinophils # (Auto) 0.0 TH/MM3 Basophils # (Auto) 0.1 TH/MM3 CBC Comment DIFF FINAL Differential Comment Urine Color YELLOW Urine Turbidity CLEAR Urine pH 8.0 Urine Specific [place] 1.017 Urine Protein TRACE mg/dL Urine Glucose (UA) NEG mg/dL Urine Ketones 80 mg/dL Urine Occult Blood NEG Urine Nitrite NEG Urine Bilirubin NEG Urine Urobilinogen 2.0 MG/DL Urine Leukocyte Esterase NEG Urine Squamous Epithelial <1 /hpf Cells Urine Hyaline Casts 2 /lpf Urine Mucus FEW /lpf Microscopic Urinalysis Comment CULT NOT INDICATED Sodium Level 142 MEQ/L Potassium Level 3.3 MEQ/L Chloride Level 108 MEQ/L Carbon Dioxide Level 22.8 MEQ/L Anion Gap 11 MEQ/L Blood Urea Nitrogen 5 MG/DL Creatinine 2.34 MG/DL Estimat Glomerular Filtration 40 ML/MIN Rate Random Glucose 82 MG/DL Calcium Level 9.3 MG/DL Total Bilirubin 0.4 MG/DL Aspartate Amino Transf 23 U/L (AST/SGOT) Alanine Aminotransferase 41 U/L (ALT/SGPT) Alkaline Phosphatase 81 U/L Total Protein 8.3 GM/DL Albumin 4.7 GM/DL Lipase 177 U/L Phenytoin (Dilantin) Level 2.9 MCG/ML [facility] Supervised Visit with RED: No Narrative Course Last Impressions Scrotum Ultrasound 11/13/16 1808 Signed Impressions: Service Date/Time: Sunday, November 13, 2016 18:38 - CONCLUSION: Normal examination. Rebel Zapien MD Abdomen/Pelvis CT 11/13/16 1608 Signed Impressions: Service Date/Time: Sunday, November 13, 2016 16:49 - CONCLUSION: 1. Nonobstructing left renal calculus. 2. No inflammatory changes are seen within the abdomen or pelvis. Aston Whitten MD No obvious etiology for the right flank pain has been determined. The most likely etiology is musculoskeletal. Diagnosis Primary Impression: Right flank pain Patient Instructions: Flank Pain (ED), General Instructions Scripts Cyclobenzaprine (Flexeril)10 Mg Tab10 Mg PO TID #15 TAB Ref 0 Prov:Gabriela Barlow MD 11/13/16 Disposition: 01 DISCHARGE HOME Condition: Stable Gabriela Barlow MD Nov 13, 2016 19:32
--- NOTE | 2016-11-13 19:59 | RADRPT ---
EXAM DATE/TIME: 11/13/2016 18:38 [facility] COMPARISON: No previous studies available for comparison. INDICATIONS : Right scrotal pain. MEDICAL HISTORY : Gastroesophageal reflux disease. Cardiomyopathy. Hypertension. SURGICAL HISTORY : Bilateral knee surgery. ENCOUNTER: Initial ACUITY: 3 days PAIN SCORE: 3/10 LOCATION: Bilateral testicle. MEASUREMENTS: RIGHT TESTICLE: 4.4 x 3.1 x 1.9cm LEFT TESTICLE: 4.1 x 3.1 x 2.3cm FINDINGS: RIGHT TESTICLE: Homogeneous echotexture without intra or extratesticular mass. Blood flow is symmetric and within no rmal limits. No hydrocele or varicocele. Epididymis is within normal limits. LEFT TESTICLE: Homogeneous echotexture without intra or extratesticular mass. Blood flow is symmetric and within no rmal limits. No hydrocele or varicocele. Epididymis is within normal limits. SCROTUM: Within normal limits. CONCLUSION: Normal examination. Rebel Zapien MD on November 13, 2016 at 19:57 Board Certified Radiologist. This report was verified electronically.
[2016-11-13] MEDS ORDERED: CYCL1TAB29 PO (20:11)
== END 2016-11-13 21:09 | disposition home or self-care (01) ==
LOC: NEPE 13:39
DX: R10.9 Unspecified abdominal pain (principal); R31.9 Hematuria, unspecified; R11.2 Nausea with vomiting, unspecified; I10 Essential (primary) hypertension; Z72.0 Tobacco use
CPT/HCPCS: 74176; 76870; 80053; 80185; 81001; 83690; 85025; 93975; 96374; 96375; 99284; J1170; J1885; J2270; J2405; J7030

== ENCOUNTER 2016-11-17 13:08 | Emergency (ER) | payer MEDICAID ==
[~2016-11-17 13:08] MED LIST changes: +CYCL1TAB29 PO
[2016-11-17 13:11] VITALS: BP 174/110; PULSE 77; RESP 16; TEMP 98.9; O2SAT 96
--- NOTE | 2016-11-17 13:32 | PD ---
Physical Exam Time Seen by Provider: 13:28 Narrative 31 year old male presents to the ED for evaluation of breakthrough seizures. He has been having seizures since a fall two years ago; he recently had a hospitalization for the same. He mom states he takes his dilantin as prescribed , yet his levels are subtherapeutic despite this. Pt has had one seizure today and one focal here in triage. Data Data Last Documented VS Vital Signs Date Time Temp Pulse Resp B/P Pulse Ox O2 Delivery O2 Flow Rate FiO2 11/17/16 13:11 98.9 77 16 174/110 96 MDM Medical Record Reviewed: Yes Supervised Visit with RED: No Narrative Course 31 year old male presents to ED for evaluation of seizures. Currently with seizure like activity in triage; gaze to the right sustained for approximately 20 seconds followed by lethargy. PT is with HTN, but otherwise VSS. Condition: Stable Manda Hall Nov 17, 2016 13:32
[2016-11-17] MEDS ORDERED: FOSPHENYTOIN INJ 1,000 MGPE in SODIUM CHLORIDE 0.9% INJ 50 ML IV ONE (13:45)
[2016-11-17 14:28] LABS: AUTOMATED NEUTROPHIL # 4.3 TH/MM3 (1.8-7.7); BASOPHIL % 0.5 % (0.0-2.0); EOSINOPHIL # 0.1 TH/MM3 (0-0.4); EOSINOPHIL % 1.7 % (0.0-4.0); HEMATOCRIT 41.4 % (39.0-51.0); HEMO FLAGS DIFF FINAL; LYMPH % 23.8 % (9.0-44.0); LYMPHOCYTE # 1.5 TH/MM3 (1.0-4.8); MEAN CELL VOLUME 90.9 FL (80.0-100.0); MEAN CORPUSCULAR HGB CONC 35.2 % (32.0-36.0); MONO % 7.8 % (0.0-8.0); NEUT % 66.2 % (16.0-70.0); PLATELET COUNT 172 TH/MM3 (150-450); RED BLOOD COUNT 4.55 MIL/MM3 (4.50-5.90); RED CELL DISTRIBUTION WIDTH 13.9 % (11.6-17.2); WHITE BLOOD COUNT 6.5 TH/MM3 (4.0-11.0)
[2016-11-17] MEDS ORDERED: levETIRAcetam INJ 1,000 MG in SODIUM CHLORIDE 0.9% INJ 100 ML IV ONE (14:30)
[2016-11-17 14:48] LABS: ALKALINE PHOSPHATASE 73 U/L (45-117); TOTAL BILIRUBIN ADULT 0.4 MG/DL (0.2-1.0)
[2016-11-17 14:52] LABS: ALT (GPT) 31 U/L (12-78); ANION GAP 9 MEQ/L (5-15); BICARBONATE 25.5 MEQ/L (21.0-32.0); BLOOD UREA NITROGEN 11 MG/DL (7-18); CHLORIDE 103 MEQ/L (98-107); GLOMERULAR FILTRATION RATE 69 ML/MIN (>89); SODIUM (NA) 137 MEQ/L (136-145)
[2016-11-17 14:53] LABS: AST (GOT) 24 U/L (15-37); MAGNESIUM 2.1 MG/DL (1.5-2.5); POTASSIUM 4.3 MEQ/L (3.5-5.1)
[2016-11-17] MEDS ORDERED: levETIRAcetam 1000 MG INJ 100 ML IV ONE (15:00)
[2016-11-17] MEDS ORDERED: LEVE500 PO (15:19)
--- NOTE | 2016-11-17 15:19 | PD ---
HPI Chief Complaint: Seizure Time Seen by Provider: 13:38 Travel History International Travel<30 days: No Contact w/Intl Traveler<30days: No History of Present Illness HPI This is a 31-year-old male who presents to the emergency department having 2 reported seizures prior to arrival. His mother reports that when he was in the car he started to stare off into space which is what happens when he has seizures. Here in the emergency department one of the nurses thought an absence seizure as well. Mom reports that the patient recently moved from [place] and ever since then he's been less active, more somnolent, and hasn't been his normal self. She says they took him to the hospital over the weekend and he was checked and his Dilantin level was 2. His Dilantin level has consistently been low despite the fact that his mother reports she watches him take his pills every day. PFSH Past Medical History Anxiety: Yes Depression: Yes Cancer: No Cardiomyopathy: Yes Cardiovascular Problems: Yes Chest Pain: Yes Diabetes: No Diminished Hearing: No Endocrine: No Gastrointestinal Disorders: Yes GERD: Yes Genitourinary: No Hypertension: Yes Immune Disorder: No Implanted Vascular Access Dvce: Yes Musculoskeletal: No Neurologic: Yes Psychiatric: No Reproductive: No Respiratory: No Seizures: Yes Past Surgical History Joint Replacement: Yes (BILATERAL KNEES, RIGHT SHOULDER) Other Surgery: Yes Social History Alcohol Use: No Tobacco Use: No Substance Use: No Allergies-Medications (Allergen,Severity, Reaction): Coded Allergies: No Known Allergies (Unverified , 11/17/16) Reported Meds & Prescriptions Reported Meds & Active Scripts Active Flexeril (Cyclobenzaprine HCl) 10 Mg Tab 10 Mg PO TID Clonidine (Clonidine HCl) 0.1 Mg Tab 0.1 Mg PO TID PRN Lortab (Hydrocodone-Acetaminophen) 7.5-325 Mg Tab 1 Tab PO Q6H PRN Dilantin (Phenytoin Extended) 100 Mg Cap 100 Mg PO Q8HR Clonazepam 2 Mg Tab 2 Mg PO BID Vitamin B-1 (Thiamine HCl) 100 Mg Tab 100 Mg PO DAILY Lopressor (Metoprolol Tartrate) 50 Mg Tab 50 Mg PO BID Review of Systems Except as stated in HPI: all other systems reviewed are Neg Physical Exam Narrative GENERAL:Well appearing, no acute distress SKIN: Focused skin assessment warm and dry. HEAD: Atraumatic. Normocephalic. EYES: Pupils equal and round. No injection or drainage. ENT: Moist mucous membranes NECK: Trachea midline. CARDIOVASCULAR: Regular rate and rhythm. No murmur appreciated. RESPIRATORY: Clear to auscultation. Breath sounds equal bilaterally. GASTROINTESTINAL: Abdomen soft, non-tender, nondistended. MUSCULOSKELETAL: No obvious deformities. NEUROLOGICAL: Awake and alert. No obvious cranial nerve deficits. Moving all extremities. No dysarthria or aphasia. PSYCHIATRIC: Appropriate mood and affect; insight and judgment normal. Data Data Last Documented VS Vital Signs Date Time Temp Pulse Resp B/P Pulse Ox O2 Delivery O2 Flow Rate FiO2 11/17/16 13:11 98.9 77 16 174/110 96 Orders Fosphenytoin Inj (Cerebyx Inj) (11/17/16 13:45) Complete Blood Count With Diff (11/17/16 13:50) Comprehensive Metabolic Panel (11/17/16 13:50) ^ Insert Iv (11/17/16 13:50) Phenytoin (Dilantin) (11/17/16 13:50) Magnesium (Mg) (11/17/16 13:50) Levetiracetam 1000 Mg Inj (Keppra 1000 M (11/17/16 15:00) Labs Laboratory Tests Test 11/17/16 14:17 White Blood Count 6.5 TH/MM3 Red Blood Count 4.55 MIL/MM3 Hemoglobin 14.6 GM/DL Hematocrit 41.4 % Mean Corpuscular Volume 90.9 FL Mean Corpuscular Hemoglobin 32.0 PG Mean Corpuscular Hemoglobin 35.2 % Concent Red Cell Distribution Width 13.9 % Platelet Count 172 TH/MM3 Mean Platelet Volume 9.1 FL Neutrophils (%) (Auto) 66.2 % Lymphocytes (%) (Auto) 23.8 % Monocytes (%) (Auto) 7.8 % Eosinophils (%) (Auto) 1.7 % Basophils (%) (Auto) 0.5 % Neutrophils # (Auto) 4.3 TH/MM3 Lymphocytes # (Auto) 1.5 TH/MM3 Monocytes # (Auto) 0.5 TH/MM3 Eosinophils # (Auto) 0.1 TH/MM3 Basophils # (Auto) 0.0 TH/MM3 CBC Comment DIFF FINAL Differential Comment Sodium Level 137 MEQ/L Potassium Level 4.3 MEQ/L Chloride Level 103 MEQ/L Carbon Dioxide Level 25.5 MEQ/L Anion Gap 9 MEQ/L Blood Urea Nitrogen 11 MG/DL Creatinine 1.44 MG/DL Estimat Glomerular Filtration 69 ML/MIN Rate Random Glucose 70 MG/DL Calcium Level 9.1 MG/DL Magnesium Level 2.1 MG/DL Total Bilirubin 0.4 MG/DL Aspartate Amino Transf 24 U/L (AST/SGOT) Alanine Aminotransferase 31 U/L (ALT/SGPT) Alkaline Phosphatase 73 U/L Total Protein 7.7 GM/DL Albumin 4.5 GM/DL Phenytoin (Dilantin) Level 3.4 MCG/ML [facility] Medical Decision Making Medical Screen Exam Complete: Yes Emergency Medical Condition: Yes Interpretation(s) Afebrile, no tachycardia, hypertensive No leukocytosis Electrolytes are reassuring Phenytoin is 3.4 Differential Diagnosis Medication noncompliance, substance abuse, partial seizures, status epilepticus Narrative Course This is a 31-year-old male who presents to the emergency department brought in by his mother who was concerned about him reporting that he had 2 seizures today. The patient had a low Dilantin level again today despite being loaded several days ago and reportedly having been compliant with his medicines. This has happened on numerous occasions. Today the patient was placed on a monitor and an IV was established. Labs were all reassuring. He was given a load of Keppra. I spoke to Dr. Vela and she agreed with changing the patient to Keppra. He had a normal EEG and a normal MRI when he was in the hospital on his last admission. He appeared postictal on arrival but has a normal neurologic exam on reassessment. I found several red flags in my interaction with this family. He has consistently low Dilantin levels which concern me for medication noncompliance. The patient denies substance abuse but he's been positive for cannabinoid on a prior drug screen in our system. Patient [place] and has filled for 6 controlled substance prescriptions all from different providers in the past three weeks. The patient's mother reports that he is "slow and developmentally delayed" but my interactions with him demonstrate no obvious cognitive delay or impaired judgment or insight and this was also observed by psychiatric consultation on his last admission. At this time given his multiple prior admissions which have been reassuring, and his normal neurologic exam I think it's reasonable to discharge the patient home. This patient will likely return to the emergency department based on the pattern he is displaying already, and I'm not convinced this is purely seizure disorder and there may be a component of secondary gain. Diagnosis Primary Impression: Seizure Referrals: Dustin Haro MD Patient Instructions: General Instructions Med/Other Pt SpecificInfo: Prescription(s) given Scripts Levetiracetam (Keppra)500 Mg [id number] Mg PO BID #60 TAB Ref 0 Prov:Kiara Martinez MD 11/17/16 Disposition: 01 DISCHARGE HOME Condition: Stable Kiara Martinez MD Nov 17, 2016 15:19
== END 2016-11-17 16:51 | disposition home or self-care (01) ==
LOC: NEPD 13:08
DX: R56.9 Unspecified convulsions (principal); I10 Essential (primary) hypertension; Z86.59 Personal history of other mental and behavioral disorders; Z86.79 Personal history of other diseases of the circulatory system; Z87.19 Personal history of other diseases of the digestive system; Z86.69 Personal history of other diseases of the nervous system and sense organs
CPT/HCPCS: 80053; 80185; 83735; 85025; 96365; 99284; J1953

== ENCOUNTER 2016-12-15 12:54 | Emergency (ER) | payer MEDICAID ==
[~2016-12-15] VITALS: Ht 177.8 cm; Wt 130.0 kg
[~2016-12-15 12:54] MED LIST changes: +LEVE500 PO
[2016-12-15 13:06] VITALS: BP 120/57; PULSE 65; RESP 20; TEMP 98.2; O2SAT 95
[2016-12-15] MEDS ORDERED: SODIUM CHLORIDE 0.9% FLUSH 10 ML FLUSH IVF PRN (13:45)
[2016-12-15 14:19] LABS: AUTOMATED NEUTROPHIL # 6.4 TH/MM3 (1.8-7.7); BASOPHIL # 0.1 TH/MM3 (0-0.2); BASOPHIL % 0.8 % (0.0-2.0); EOSINOPHIL # 0.1 TH/MM3 (0-0.4); EOSINOPHIL % 0.6 % (0.0-4.0); HEMATOCRIT 45.3 % (39.0-51.0); HEMO FLAGS DIFF FINAL; LYMPH % 27.2 % (9.0-44.0); LYMPHOCYTE # 2.9 TH/MM3 (1.0-4.8); MEAN CELL VOLUME 93.5 FL (80.0-100.0); MEAN CORPUSCULAR HEMOGLOBIN 30.6 PG (27.0-34.0); MEAN CORPUSCULAR HGB CONC 32.8 % (32.0-36.0); MONO % 10.4 % (0.0-8.0); PLATELET COUNT 148 TH/MM3 (150-450); RED BLOOD COUNT 4.85 MIL/MM3 (4.50-5.90); RED CELL DISTRIBUTION WIDTH 15.6 % (11.6-17.2); WHITE BLOOD COUNT 10.5 TH/MM3 (4.0-11.0)
[2016-12-15] MEDS ORDERED: NAPROXEN 500 MG TAB PO ONE (14:30)
--- NOTE | 2016-12-15 14:35 | PD ---
HPI Chief Complaint: Seizure Time Seen by Provider: 13:20 Travel History International Travel<30 days: No Contact w/Intl Traveler<30days: No Traveled to known affect area: No History of Present Illness HPI 31-year-old male with a history of seizures and polysubstance abuse who presents to the emergency department after generalized tonic-clonic seizure. He states he has 2 seizures today. He typically gets a seizure every 1-2 weeks. He's been the ED multiple times in the past month or so since moving to the area. Some suspicion for drug-seeking as well as seizures. He looks well. He complains of dental pain from a decayed tooth that he saw a dentist for this recently. He reports compliance with medications but his Dilantin levels always super low. He states he was on Keppra in the past but only takes Dilantin now. He follows with Dr. Tirado. History Past Medical History Narrative Medical Seizures Polysubstance abuse Social History Alcohol Use: Yes (OCCASSIONAL) Tobacco Use: Yes Allergies-Medications (Allergen,Severity, Reaction): Coded Allergies: No Known Allergies (Unverified , 11/17/16) Reported Meds & Prescriptions Reported Meds & Active Scripts Active Flexeril (Cyclobenzaprine HCl) 10 Mg Tab 10 Mg PO TID Clonidine (Clonidine HCl) 0.1 Mg Tab 0.1 Mg PO TID PRN Lortab (Hydrocodone-Acetaminophen) 7.5-325 Mg Tab 1 Tab PO Q6H PRN Dilantin (Phenytoin Extended) 100 Mg Cap 100 Mg PO Q8HR Clonazepam 2 Mg Tab 2 Mg PO BID Vitamin B-1 (Thiamine HCl) 100 Mg Tab 100 Mg PO DAILY Lopressor (Metoprolol Tartrate) 50 Mg Tab 50 Mg PO BID Review of Systems Except as stated in HPI: all other systems reviewed are Neg Physical Exam Narrative GENERAL: Well-appearing 31 year-old man, no acute distress. SKIN: Focused skin assessment warm/dry. NECK: Trachea midline. Moves neck freely. CARDIOVASCULAR: Regular rate and rhythm. No murmur appreciated. RESPIRATORY: No accessory muscle use. Clear to auscultation. Breath sounds equal bilaterally. GASTROINTESTINAL: Abdomen soft, non-tender, nondistended. Hepatic and splenic margins not palpable. MUSCULOSKELETAL: No obvious deformities. No edema. NEUROLOGICAL: Awake and alert. No obvious cranial nerve deficits. Motor grossly within normal limits. Normal speech. Data Data Last Documented VS Vital Signs Date Time Temp Pulse Resp B/P Pulse Ox O2 Delivery O2 Flow Rate FiO2 12/15/16 13:06 98.2 65 20 120/57 95 Orders Complete Blood Count With Diff (12/15/16 13:43) Basic Metabolic Panel (Bmp) (12/15/16 13:43) Phenytoin (Dilantin) (12/15/16 13:43) Blood Glucose (12/15/16 13:43) Ecg Monitoring (12/15/16 13:43) Iv Access Insert/Monitor (12/15/16 13:43) Oximetry (12/15/16 13:43) Sodium Chloride 0.9% Flush (Ns Flush) (12/15/16 13:45) Naproxen (Naprosyn) (12/15/16 14:30) Labs Laboratory Tests Test 12/15/16 14:00 White Blood Count 10.5 TH/MM3 Red Blood Count 4.85 MIL/MM3 Hemoglobin 14.9 GM/DL Hematocrit 45.3 % Mean Corpuscular Volume 93.5 FL Mean Corpuscular Hemoglobin 30.6 PG Mean Corpuscular Hemoglobin 32.8 % Concent Red Cell Distribution Width 15.6 % Platelet Count 148 TH/MM3 Mean Platelet Volume 9.3 FL Neutrophils (%) (Auto) 61.0 % Lymphocytes (%) (Auto) 27.2 % Monocytes (%) (Auto) 10.4 % Eosinophils (%) (Auto) 0.6 % Basophils (%) (Auto) 0.8 % Neutrophils # (Auto) 6.4 TH/MM3 Lymphocytes # (Auto) 2.9 TH/MM3 Monocytes # (Auto) 1.1 TH/MM3 Eosinophils # (Auto) 0.1 TH/MM3 Basophils # (Auto) 0.1 TH/MM3 CBC Comment DIFF FINAL Differential Comment Sodium Level 140 MEQ/L Potassium Level 3.8 MEQ/L Chloride Level 110 MEQ/L Carbon Dioxide Level 21.9 MEQ/L Anion Gap 8 MEQ/L Blood Urea Nitrogen 26 MG/DL Creatinine 2.20 MG/DL Estimat Glomerular Filtration 43 ML/MIN Rate Random Glucose 87 MG/DL Calcium Level 8.7 MG/DL Phenytoin (Dilantin) Level 6.0 MCG/ML MDM Medical Decision Making Medical Screen Exam Complete: Yes Emergency Medical Condition: Yes Interpretation(s) LABS: LABS: CBC remarkable for mildly elevated BUN/creatinine Dilantin 6 Differential Diagnosis Seizures, noncompliance, subtherapeutic levels, trauma, drug-seeking, other Narrative Course Medical decision-making new 31-year-old male with known seizures shortly hereafter seizure. We'll check labs, fosphenytoin if needed, outpatient follow-up. FINAL: Labs show chronic kidney disease but a BUN is elevated compared to previous. Probably dehydration. We'll give him some IV fluids, low dense but swelling, continue to recommend close outpatient follow-up. Diagnosis Primary Impression: Seizures Additional Instructions: Continue current seizure medications. Follow-up with your neurologist in the next 3-[address] or operate heavy machinery until cleared by neurology. You should avoid being in any situation where if you had a seizure it could be dangerous such as swimming, looking on a ladder, or other such activities. Return to the emergency department for any seizures lasting more than 5 minutes , [id number] seizures, or seizures with prolonged confusion afterwards. Med/Other Pt SpecificInfo: No Change to Meds Disposition: 01 DISCHARGE HOME Condition: Stable Kee Toro MD December 15, 2016 14:35
[2016-12-15 14:41] LABS: BICARBONATE 21.9 MEQ/L (21.0-32.0); POTASSIUM 3.8 MEQ/L (3.5-5.1)
[2016-12-15] MEDS ORDERED: SODIUM CHLOR 0.9% 1000 ML INJ 1,000 ML IV ONE ×2 (15:00)
[2016-12-15] MEDS ORDERED: FOSPHENYTOIN INJ 1,000 MGPE in SODIUM CHLORIDE 0.9% INJ 50 ML IV ONE (15:00)
== END 2016-12-15 17:01 | disposition home or self-care (01) ==
LOC: NEPD 12:54
DX: R56.9 Unspecified convulsions (principal)
CPT/HCPCS: 80048; 80185; 85025; 96374; 99284; J7030; Q2009

== ENCOUNTER 2016-12-22 00:17 | Emergency (ER) | payer MEDICAID ==
[~2016-12-22] VITALS: Ht 177.8 cm; Wt 127.0 kg
[~2016-12-22 00:17] MED LIST changes: -LEVE500 PO
[2016-12-22 00:31] VITALS: BP 133/64; PULSE 95; RESP 16; TEMP 98.9; O2SAT 99
[2016-12-22] MEDS ORDERED: SODIUM CHLOR 0.9% 1000 ML INJ 1,000 ML IV ONE (00:45)
--- NOTE | 2016-12-22 00:54 | RADRPT ---
EXAM DATE/TIME: 12/22/2016 00:41 [facility] COMPARISON: CHEST SINGLE AP, October 17, 2016, 15:53. INDICATIONS : Cough. MEDICAL HISTORY : None. SURGICAL HISTORY : None. ENCOUNTER: Initial ACUITY: 1 day PAIN SCORE: 0/10 LOCATION: Bilateral chest FINDINGS: The lungs are clear without infiltrate, nodule, or mass. There is no appreciable pleural effusion fo r technique. Heart and mediastinum are unremarkable. CONCLUSION: No acute cardiopulmonary disease. Babs Cameron MD on December 22, 2016 at 0:52 Board Certified Radiologist. This report was verified electronically.
[2016-12-22 01:15] LABS: AUTOMATED NEUTROPHIL # 5.2 TH/MM3 (1.8-7.7); BASOPHIL # 0.1 TH/MM3 (0-0.2); EOSINOPHIL # 0.1 TH/MM3 (0-0.4); EOSINOPHIL % 1.4 % (0.0-4.0); HEMATOCRIT 41.8 % (39.0-51.0); HEMO FLAGS DIFF FINAL; LYMPH % 38.3 % (9.0-44.0); LYMPHOCYTE # 3.7 TH/MM3 (1.0-4.8); MEAN CORPUSCULAR HEMOGLOBIN 31.6 PG (27.0-34.0); MEAN CORPUSCULAR HGB CONC 34.8 % (32.0-36.0); MONO % 5.2 % (0.0-8.0); NEUT % 54.1 % (16.0-70.0); PLATELET COUNT 140 TH/MM3 (150-450); RED CELL DISTRIBUTION WIDTH 14.4 % (11.6-17.2); WHITE BLOOD COUNT 9.7 TH/MM3 (4.0-11.0)
[2016-12-22 01:18] VITALS: RESP 16; O2SAT 99
[2016-12-22 01:41] LABS: ALT (GPT) 34 U/L (12-78); ANION GAP 9 MEQ/L (5-15); AST (GOT) 22 U/L (15-37); BICARBONATE 23.9 MEQ/L (21.0-32.0); BLOOD UREA NITROGEN 21 MG/DL (7-18); CHLORIDE 107 MEQ/L (98-107); GLOMERULAR FILTRATION RATE 51 ML/MIN (>89); POTASSIUM 3.5 MEQ/L (3.5-5.1); SODIUM (NA) 140 MEQ/L (136-145)
[2016-12-22 01:43] LABS: ALKALINE PHOSPHATASE 122 U/L (45-117); CREATINE KINASE 287 U/L (39-308); TOTAL BILIRUBIN ADULT 0.2 MG/DL (0.2-1.0)
--- NOTE | 2016-12-22 02:00 | PD ---
HPI Chief Complaint: Seizure Time Seen by Provider: 00:30 Travel History International Travel<30 days: No Contact w/Intl Traveler<30days: No Traveled to known affect area: No History of Present Illness HPI The patient is a 31 year old male who presents to the [facility] emergency department with a history of reportedly having a sensation of an aura with halos around his vision that began earlier this evening. The patient reports that he has a similar aura prior to having generalized tonic-clonic seizure activity. He reports that he has been taking his Dilantin as prescribed. He reports that he is also been taking clonazepam and lorazepam as prescribed by his physician in [place]. The patient on arrival is awake and alert. The patient is a poor historian and at times speaks very quietly making it difficult to understand him. From reviewing the electronic medical record, the patient was admitted with lethargy and seizure activity on October 17, 2016. According to the electronic medical record review the patient had a history of alcohol abuse, benzodiazepine use, seizure disorder, having a mental disability according to his mother, and rhabdomyolysis. On review of systems, the patient denies any recent fevers cough, congestion, neck pain, chest pain, shortness of breath, abdominal pain, vomiting, diarrhea, urinary symptoms, or other neurologic symptoms. [facility] Past Medical History Narrative Medical The patient's past medical history is significant for seizure disorder, history of cardiomegaly, history of hypertension, history of rhabdomyolysis during a prior admission, history of alcohol abuse, history of benzodiazepine use. Anxiety: Yes Depression: Yes Cancer: No Cardiomyopathy: Yes Cardiovascular Problems: Yes Chest Pain: Yes Diabetes: No Diminished Hearing: No Endocrine: No Gastrointestinal Disorders: Yes GERD: Yes Genitourinary: No Headaches: Yes Hypertension: Yes Immune Disorder: No Implanted Vascular Access Dvce: Yes Musculoskeletal: No Neurologic: Yes Psychiatric: No Reproductive: No Respiratory: No Seizures: Yes Influenza Vaccination: Yes Past Surgical History Narrative Surgical The patient's past surgical history is significant for bilateral knee surgeries , shoulder surgery. Joint Replacement: Yes (BILATERAL KNEES, RIGHT SHOULDER) Other Surgery: Yes Social History Alcohol Use: Yes (OCCASSIONAL) Tobacco Use: Yes Substance Use: No Allergies-Medications (Allergen,Severity, Reaction): Coded Allergies: No Known Allergies (Unverified , 11/17/16) Reported Meds & Prescriptions Reported Meds & Active Scripts Active Flexeril (Cyclobenzaprine HCl) 10 Mg Tab 10 Mg PO TID Clonidine (Clonidine HCl) 0.1 Mg Tab 0.1 Mg PO TID PRN Lortab (Hydrocodone-Acetaminophen) 7.5-325 Mg Tab 1 Tab PO Q6H PRN Dilantin (Phenytoin Extended) 100 Mg Cap 100 Mg PO Q8HR Clonazepam 2 Mg Tab 2 Mg PO BID Vitamin B-1 (Thiamine HCl) 100 Mg Tab 100 Mg PO DAILY Lopressor (Metoprolol Tartrate) 50 Mg Tab 50 Mg PO BID Review of Systems Except as stated in HPI: all other systems reviewed are Neg General / Constitutional: No: Fever Eyes: No: Visual changes HENT: No: Headaches Cardiovascular: No: Chest Pain or Discomfort Respiratory: No: Shortness of Breath Gastrointestinal: No: Abdominal Pain Genitourinary: No: Dysuria Musculoskeletal: No: Pain Skin: No Rash Neurologic: Positive: Other (aura sensation of pending seizure activity), No: Weakness, Focal Abnormalities, Change in Mentation, Slurred Speech, Sensory Disturbance Psychiatric: No: Depression Endocrine: No: Polydipsia Hematologic/Lymphatic: No: Easy Bruising Physical Exam Narrative General: The patient is a well-developed well-nourished male in no acute distress Head and Neck exam: Head is normocephalic atraumatic. Eyes: EOMI, pupils are equal round and reactive to light. Nose: Midline septum with pink mucous membranes Mouth: Dentition unremarkable. Moist mucus membranes. Posterior oropharynx is not erythematous. No tonsillar hypertrophy. Uvula midline. Airway patent. Neck: No palpable lymphadenopathy. No nuchal rigidity. No thyromegaly. Cardiovascular: Regular rate and rhythm without murmurs, gallops, or rubs. Lungs: Clear to auscultation bilaterally. No wheezes, rhonchi, or rales. Abdomen: Soft, without tenderness to palpation in all 4 quadrants of the abdomen. No guarding, rebound, or rigidity. Normal bowel sounds are audible. No tenderness on palpation of McBurney's point. Negative Granados's sign. Extremities: No clubbing, cyanosis, or edema. 2+ pulses in all 4 extremities. No calf tenderness on palpation. Back: No spinous process tenderness to palpation. No costovertebral angle tenderness to palpation. Neurologic Exam: Cranial nerves 2-12 were intact on exam. Strength is 5/5 in all 4 extremities. No sensory deficits noted. Skin Exam: No rash noted. Intact skin that is warm and dry. Data Data Last Documented VS Vital Signs Date Time Temp Pulse Resp B/P Pulse Ox O2 Delivery O2 Flow Rate FiO2 12/22/16 01:18 16 99 Room Air 12/22/16 00:33 95 12/22/16 00:31 98.9 133/64 Orders Electrocardiogram (12/22/16:35) Complete Blood Count With Diff (12/22/16 00:35) Comprehensive Metabolic Panel (12/22/16 00:35) Creatine Kinase (Cpk) (12/22/16:35) Ckmb (Isoenzyme) Profile (12/22/16:35) Troponin I (12/22/16 00:35) Lipase (12/22/16 00:35) Urinalysis - C+S If Indicated (12/22/16:35) Magnesium (Mg) (12/22/16 00:35) Phenytoin (Dilantin) (12/22/16 00:35) Chest, Single Ap (12/22/16 00:35) Iv Access Insert/Monitor (12/22/16:35) Ecg Monitoring (12/22/16 00:35) Oximetry (12/22/16 00:35) Drug Screen, Random Urine (12/22/16 00:35) Alcohol (Ethanol) (12/22/16 00:35) Sodium Chlor 0.9% 1000 Ml Inj (Ns 1000 M (12/22/16 00:45) CKMB (12/22/16 01:00) CKMB% (12/22/16 01:00) Labs Laboratory Tests Test 12/22/16 01:00 White Blood Count 9.7 TH/MM3 Red Blood Count 4.60 MIL/MM3 Hemoglobin 14.5 GM/DL Hematocrit 41.8 % Mean Corpuscular Volume 91.0 FL Mean Corpuscular Hemoglobin 31.6 PG Mean Corpuscular Hemoglobin 34.8 % Concent Red Cell Distribution Width 14.4 % Platelet Count 140 TH/MM3 Mean Platelet Volume 10.0 FL Neutrophils (%) (Auto) 54.1 % Lymphocytes (%) (Auto) 38.3 % Monocytes (%) (Auto) 5.2 % Eosinophils (%) (Auto) 1.4 % Basophils (%) (Auto) 1.0 % Neutrophils # (Auto) 5.2 TH/MM3 Lymphocytes # (Auto) 3.7 TH/MM3 Monocytes # (Auto) 0.5 TH/MM3 Eosinophils # (Auto) 0.1 TH/MM3 Basophils # (Auto) 0.1 TH/MM3 CBC Comment DIFF FINAL Differential Comment Sodium Level 140 MEQ/L Potassium Level 3.5 MEQ/L Chloride Level 107 MEQ/L Carbon Dioxide Level 23.9 MEQ/L Anion Gap 9 MEQ/L Blood Urea Nitrogen 21 MG/DL Creatinine 1.88 MG/DL Estimat Glomerular Filtration 51 ML/MIN Rate Random Glucose 86 MG/DL Calcium Level 8.6 MG/DL Magnesium Level 2.0 MG/DL Total Bilirubin 0.2 MG/DL Aspartate Amino Transf 22 U/L (AST/SGOT) Alanine Aminotransferase 34 U/L (ALT/SGPT) Alkaline Phosphatase 122 U/L Total Creatine Kinase 287 U/L Creatine Kinase MB 3.1 NG/ML Troponin I LESS THAN 0.02 NG/ML Total Protein 7.2 GM/DL Albumin 3.9 GM/DL Lipase 291 U/L Phenytoin (Dilantin) Level 14.1 MCG/ML Ethyl Alcohol Level LESS THAN 3 MG/DL MDM Medical Decision Making Medical Screen Exam Complete: Yes Emergency Medical Condition: Yes Medical Record Reviewed: Yes Differential Diagnosis Subtherapeutic Dilantin level, versus anxiety disorder, versus electrolyte abnormality, versus migraine headache Narrative Course During the course of the patients emergency department visit, the patients history, examination, and differential diagnosis were reviewed with the patient. The patient had IV access obtained and blood work sent for analysis. The patient was placed on a educational program assistant with oximetry and blood pressure monitoring. An EKG was done on arrival. The patient's EKG shows a sinus rhythm heart rate of 67, QRS duration is 120 ms, QTC 434 ms, no acute ST segment elevation or depression noted. The patient was initially provided normal saline 1 L IV fluid bolus per The patients laboratory studies were reviewed and remarkable for a CBC with a white count of 9.7, hemoglobin 14.5, platelets 140 with a normal differential, CMP is remarkable for a BUN of 21, creatinine 1.88 which is improved compared to previously, GFR 51, alkaline phosphatase 122, CPK 287, troponin I less than 0.02, lipase 291, alcohol less than 3, Dilantin level XIV.1 and therapeutic. Radiology studies were reviewed and remarkable for a chest x-ray that shows no acute abnormality. During the patient's observation he had no seizure activity noted. The patient was reassured that his Dilantin level is therapeutic. The patient is instructed regarding the importance of following up with his neurologist. The patient is resting comfortably and feels better, is alert and in no distress. The patients results and examination findings were discussed with the patient. The repeat examination is unremarkable and benign. The history, exam, diagnostic testing, and current condition do not suggest any significant pathology to warrant further testing, continued ED treatment, admission, or surgical evaluation at this point. The vital signs have been stable. The patient does not have uncontrollable pain, intractable vomiting, or other significant symptoms. The patient's condition is stable and appropriate for discharge. The patient will pursue further outpatient evaluation with a primary care physician or other designated or consulting physician as indicated in the discharge instructions. The patient expressed understanding and was agreeable with this plan. Diagnosis Primary Impression: Altered mental status Qualified Code: R41.82 - Altered mental status, unspecified altered mental status type Referrals: Neurologist 1 week Primary Care Physician 2 days Patient Instructions: General Instructions Med/Other Pt SpecificInfo: No Change to Meds Disposition: 01 DISCHARGE HOME Condition: Stable Charlene Red MD December 22, 2016 02:00
[2016-12-22 02:16] LABS: CKMB 3.1 NG/ML (0.5-3.6)
--- NOTE | 2016-12-22 15:38 | EKG ---
Date Performed: 12/22/2016 Time Performed: 01:48:05 PTAGE: 31 years EKG: Sinus rhythm POSSIBLE LEFT ATRIAL ENLARGEMENT POSSIBLE RIGHT VENTRICULAR CONDUCTION DELAY LEFT VENTRICULAR HYPERT ROPHY AND ST-T CHANGE ABNORMAL ECG Compared to prior tracing no significant change PREVIOUS TRACING : 10/17/2016 15.21 DOCTOR: Garrett Holguin Interpretating Date/Time 12/22/2016 15:36:50
== END 2016-12-22 08:05 | disposition home or self-care (01) ==
LOC: NEPC 00:17
DX: R41.82 Altered mental status, unspecified (principal); R94.31 Abnormal electrocardiogram [ECG] [EKG]; I10 Essential (primary) hypertension; I42.9 Cardiomyopathy, unspecified; Z72.0 Tobacco use
CPT/HCPCS: 71010; 80053; 80185; 80307; 82550; 82552; 83690; 83735; 84484; 85025; 93005; 96360; 96361; 99284; J7030

== ENCOUNTER 2016-12-24 17:14 | Emergency (ER) | payer MEDICAID ==
[2016-12-24 17:16] VITALS: BP 172/87; PULSE 80; RESP 20; TEMP 98.7; O2SAT 98
--- NOTE | 2016-12-24 20:24 | PD ---
HPI Chief Complaint: Psychiatric Symptoms Time Seen by Provider: 20:10 Travel History International Travel<30 days: No Contact w/Intl Traveler<30days: No Traveled to known affect area: No History of Present Illness HPI This is a 31-year-old male who presents voluntarily requesting psychiatric evaluation. He reports a history of depression, anxiety, seizures. Over the past several days he has been feeling increasingly depressed. He reports that he saw a therapist yesterday but symptoms have persisted which prompted evaluation. He is currently tearful and anxious. He is somewhat of a poor historian. He reports that he has been out of his Klonopin for several days. He recently moved here 2 months ago from [place], has not yet established care with a primary care physician. He denies any illicit drug use but endorses alcohol use yesterday and today. He has been compliant with his Dilantin. He has no other complaints at this time. PFSH Past Medical History Anxiety: Yes Depression: Yes Cancer: No Cardiomyopathy: Yes Cardiovascular Problems: Yes Chest Pain: Yes Diabetes: No Diminished Hearing: No Endocrine: No Gastrointestinal Disorders: Yes GERD: Yes Genitourinary: No Headaches: Yes Hypertension: Yes Immune Disorder: No Implanted Vascular Access Dvce: Yes Musculoskeletal: No Neurologic: Yes Psychiatric: No Reproductive: No Respiratory: No Seizures: Yes Tetanus Vaccination: Unknown Influenza Vaccination: No Past Surgical History Joint Replacement: Yes (BILATERAL KNEES, RIGHT SHOULDER) Other Surgery: Yes Social History Alcohol Use: Yes (OCCASSIONAL) Tobacco Use: Yes Substance Use: No Allergies-Medications (Allergen,Severity, Reaction): Coded Allergies: No Known Allergies (Unverified , 11/17/16) Reported Meds & Prescriptions Reported Meds & Active Scripts Active Flexeril (Cyclobenzaprine HCl) 10 Mg Tab 10 Mg PO TID Clonidine (Clonidine HCl) 0.1 Mg Tab 0.1 Mg PO TID PRN Lortab (Hydrocodone-Acetaminophen) 7.5-325 Mg Tab 1 Tab PO Q6H PRN Dilantin (Phenytoin Extended) 100 Mg Cap 100 Mg PO Q8HR Clonazepam 2 Mg Tab 2 Mg PO BID Vitamin B-1 (Thiamine HCl) 100 Mg Tab 100 Mg PO DAILY Lopressor (Metoprolol Tartrate) 50 Mg Tab 50 Mg PO BID Review of Systems Except as stated in HPI: all other systems reviewed are Neg Physical Exam Narrative GENERAL: Well-developed well-nourished male in no acute distress, anxious and tearful SKIN: Warm and dry. HEAD: Atraumatic. Normocephalic. EYES: Pupils equal and round. No scleral icterus. No injection or drainage. ENT: No nasal bleeding or discharge. Mucous membranes pink and moist. NECK: Trachea midline. No JVD. CARDIOVASCULAR: Regular rate and rhythm. No murmur appreciated. RESPIRATORY: No accessory muscle use. Clear to auscultation. Breath sounds equal bilaterally. GASTROINTESTINAL: Abdomen soft, non-tender, nondistended. Hepatic and splenic margins not palpable. MUSCULOSKELETAL: No obvious deformities. No clubbing. No cyanosis. No edema. NEUROLOGICAL: Awake and alert. No obvious cranial nerve deficits. Motor grossly within normal limits. Mildly slurred speech PSYCHIATRIC: Depressed, anxious, tearful Data Data Last Documented VS Vital Signs Date Time Temp Pulse Resp B/P Pulse Ox O2 Delivery O2 Flow Rate FiO2 12/24/16 21:21 98.3 80 18 154/68 98 12/24/16 17:16 Room Air Orders Phenytoin (Dilantin) (12/24/16 20:20) Drug Screen, Random Urine (12/24/16 20:20) Alcohol (Ethanol) (12/24/16 20:20) Psych Screen (12/24/16 20:20) Clonazepam (Klonopin) (12/24/16 22:00) Labs Laboratory Tests Test 12/24/16 20:39 Urine Opiates Screen NEG Urine Barbiturates Screen NEG Phenytoin (Dilantin) Level 10.9 MCG/ML Urine Amphetamines Screen NEG Urine Benzodiazepines Screen NEG Urine Cocaine Screen NEG Urine Cannabinoids Screen POS Ethyl Alcohol Level LESS THAN 3 MG/DL MDM Medical Decision Making Medical Screen Exam Complete: Yes Emergency Medical Condition: Yes Medical Record Reviewed: Yes Differential Diagnosis Major depressive disorder, depressive disorder not otherwise specified, acute psychosis, substance induced mood disorder, anxiety Narrative Course 31-year-old male presents voluntarily requesting psychiatric evaluation. He was just seen here yesterday for evaluation of altered mental status. He had lab work at that time. Plan today is for repeat Dilantin level, drug screen and alcohol level. Mental health screening discussed with the patient. Psychiatric screen ordered. Laboratory is been reviewed. Dilantin is therapeutic at 10.9. Positive for cannabinoids. He is medically cleared for psychiatric disposition. The patient's mother Lashell Wick came to me privately prior to her going home and said that over the past several weeks he has been essentially just crying nonstop, he has been getting worse and is now exhibiting aggressive behavior and she is very concerned by this behavior. She has left her phone number in case any additional information is required by the psychiatry team. [phone]) Diagnosis Primary Impression: Depression Qualified Code: F32.9 - Depression, unspecified depression type Additional Impression: Anxiety Deni Vaz December 24, 2016 20:23
[2016-12-24 21:00] LABS: AMPHETAMINE, URINE NEG (NEG); BARBITURATES, URINE NEG (NEG); COCAINE, URINE NEG (NEG)
[2016-12-24 21:21] VITALS: BP 154/68; PULSE 80; RESP 18; TEMP 98.3; O2SAT 98
[2016-12-24] MEDS ORDERED: clonazePAM 1 MG TAB PO ONE (22:00)
[2016-12-24 22:48] VITALS: BP 162/89; PULSE 69; RESP 18; O2SAT 97
[2016-12-25 02:34] VITALS: BP 137/61; PULSE 76; RESP 17; O2SAT 99
[2016-12-25 06:19] VITALS: BP 175/89; PULSE 71; RESP 19; TEMP 87.7; O2SAT 99
[2016-12-25] MEDS ORDERED: METOPROLOL TARTRATE 50 MG TAB PO ONE (07:45)
[2016-12-25] MEDS ORDERED: PHENYTOIN SODIUM 100 MG CAP PO ONE (07:45)
[2016-12-25 11:21] VITALS: BP 152/86; PULSE 68; RESP 18
--- NOTE | 2016-12-25 11:22 | PD ---
History of Present Illness Chief Complaint: Psychiatric Symptoms Time Seen by Provider: 11:00 Travel History International Travel<30 Days: No Contact w/Intl Traveler<30days: No Known affected area: No Legal Status Legal Status: Voluntary History of Present Illness: History of Present Illness HPI This is a 31-year-old male with a reported history of anxiety who presents voluntarily requesting psychiatric evaluation. ED documentation is as follows; " Over the past several days he has been feeling increasingly depressed. He reports that he saw a therapist yesterday but symptoms have persisted which prompted evaluation. He is currently tearful and anxious. He is somewhat of a poor historian. He reports that he has been out of his Klonopin for several days. He recently moved here 2 months ago from [place], has not yet established care with a primary care physician. He denies any illicit drug use but endorses alcohol use yesterday and today. He has been compliant with his Dilantin. He has no other complaints at this time." His BAL on admission is undetectable and positive toxicology for cannabinoids Patient has been monitored in [facility] and has presented no behavioral concerns, no suicidality and no significant symptom of anxiety. He is alert and oriented. Speech is clear and logical, of low tone. There is no aissatou or hypomania. No disturbance of thought content or process. He reports that he had a few drinks earlier in the day and that it caused him to become involved in an arguments with his sister. He is vague as to why he came to ED.He denies any suicidal or homicidal ideation. he has an appointment to see a therapist next week. as well as an appointment to see a psychiatrist for medication. he is requesting discharge at this time. PFSH Past Medical History Anxiety: Yes Depression: Yes Cancer: No Cardiomyopathy: Yes Cardiovascular Problems: Yes Chest Pain: Yes Diabetes: No Diminished Hearing: No Endocrine: No Gastrointestinal Disorders: Yes GERD: Yes Genitourinary: No Headaches: Yes Hypertension: Yes Immune Disorder: No Implanted Vascular Access Dvce: Yes Musculoskeletal: No Neurologic: Yes Psychiatric: No Reproductive: No Respiratory: No Seizures: Yes Tetanus Vaccination: Unknown Influenza Vaccination: No Past Surgical History Joint Replacement: Yes (BILATERAL KNEES, RIGHT SHOULDER) Other Surgery: Yes Psychiatric History Psychiatric History Hx Psychiatric Treatment: None History of Inpatient Treatment: No Guns or firearms in home: No Social History Single male. Born in [place]. Moved to [facility] four months ago. Hx Alcohol Use: Yes (OCCASSIONAL) Hx Tobacco Use: Yes Hx Substance Use: No Hx of Substance Use Treatment: No Family Psychiatric History Negative Allergies-Medications (Allergen,Severity, Reaction): Coded Allergies: No Known Allergies (Unverified , 11/17/16) Reported Meds & Prescriptions Reported Meds & Active Scripts Active Flexeril (Cyclobenzaprine HCl) 10 Mg Tab 10 Mg PO TID Clonidine (Clonidine HCl) 0.1 Mg Tab 0.1 Mg PO TID PRN Lortab (Hydrocodone-Acetaminophen) 7.5-325 Mg Tab 1 Tab PO Q6H PRN Dilantin (Phenytoin Extended) 100 Mg Cap 100 Mg PO Q8HR Clonazepam 2 Mg Tab 2 Mg PO BID Vitamin B-1 (Thiamine HCl) 100 Mg Tab 100 Mg PO DAILY Lopressor (Metoprolol Tartrate) 50 Mg Tab 50 Mg PO BID Review of Systems Except as stated in HPI: all other systems reviewed are Neg Exam Alert: Yes [place]: Person (ox4) Mood: Calm Affect: Appropriate Speech: Clear, Logical Eye Contact: Normal Memory Intact: Comment (no impairmetn) Hallucinations: Other (neagtive) Delusions: No Suicidal: Ideation (deneis any) Homicidal: Ideation (deneis any) Insight/Judgement Fair. Not impaired. MDM Medical Decision Making Medical Record Reviewed: Yes Assessment/Plan 31 year old male with history of anxiety who presents under a voluntary status seeking an evaluation. This after he was involved in an argument with his sister. At this time he is requesting discharge and I find no reason to keep him here against his will. He will follow up with his outpatient providers. Orders Phenytoin (Dilantin) (12/24/16 20:20) Drug Screen, Random Urine (12/24/16 20:20) Alcohol (Ethanol) (12/24/16 20:20) Psych Screen (12/24/16 20:20) Clonazepam (Klonopin) (12/24/16 22:00) Diet Regular Basic (12/25/16 Breakfast) Metoprolol Tartrate (Lopressor) (12/25/16 07:45) Phenytoin (Dilantin) (12/25/16 07:45) Diet Regular Basic (12/25/16 Lunch) Results Vital Signs Date Time Temp Pulse Resp B/P Pulse Ox O2 Delivery O2 Flow Rate FiO2 12/25/16 06:19 87.7 71 19 175/89 99 Room Air 12/25/16 02:34 76 17 137/61 99 Room Air 12/24/16 22:48 69 18 162/89 97 Room Air 12/24/16 21:21 98.3 80 18 154/68 98 12/24/16 17:16 98.7 80 20 172/87 98 Room Air Laboratory Tests Test 12/24/16 20:39 Urine Opiates Screen NEG Urine Barbiturates Screen NEG Phenytoin (Dilantin) Level 10.9 Urine Amphetamines Screen NEG Urine Benzodiazepines Screen NEG Urine Cocaine Screen NEG Urine Cannabinoids Screen POS Ethyl Alcohol Level LESS THAN 3 Diagnosis Primary Impression: Anxiety Ruled Out: Depression Psychiatrically Cleared: Yes Med/ Other Pt Specific Info: No Change to Meds Disposition: 01 DISCHARGE HOME Condition: Stable Gena Morales December 25, 2016 11:22
== END 2016-12-25 12:03 | disposition home or self-care (01) ==
LOC: NEPC 17:14 → NEPJ 12-25 12:03
DX: F41.9 Anxiety disorder, unspecified (principal); Z79.899 Other long term (current) drug therapy
CPT/HCPCS: 80185; 80307; 99283